=== PATIENT | female | born 1950 | race Caucasian/White ===

== ENCOUNTER 2016-07-28 09:46 | Observation (INO) | payer MEDICARE ==
[~2016-07-28] VITALS: Ht 152.4 cm; Wt 74.8 kg
[~2016-07-28 09:46] MED LIST: GLUCOPHAGE500 MG PO; NOVOLOG100 U/M1 SC
[2016-07-28 10:25] LABS: BASOPHILS 0.4 % (0.0-2.0); EOSINOPHILS 2.9 % (0-7); HEMATOCRIT 37.2 % (36.0-48.0); HEMOGLOBIN 11.2 g/dL (12-16); LYMPHOCYTES 42.9 % (15-50); MCH 29.7 pg (26.0-34.0); MCHC 30.1 g/dL (31.0-37.0); MCV 98.7 fL (80.0-100.0); MEAN PLATELET VOLUME 8.8 fL (7.4-10.4); MONOCYTES 9.3 % (2-11); NEUTROPHILS 44.5 % (40-80); RBC 3.77 10x6/uL (4.00-5.40); RDW 13.6 % (11.5-14.5); WBC 2.8 10x3/uL (4.8-10.8)
[2016-07-28 10:26] LABS: PLATELET COUNT 296 10x3/uL (130-400)
[2016-07-28 10:49] LABS: ALBUMIN 2.7 g/dL (3.4-5.0); ALKALINE PHOSPHATASE 113 U/L (46-116); ALT (SGPT) 22 U/L (10-68); CALC OSMOLALITY 278 mosm/kg (275-300); CALCIUM 8.9 mg/dL (8.5-10.1); CARBON DIOXIDE 33.8 mmol/L (21.0-32.0); CHLORIDE - SERUM 101 mmol/L (98-107); CREATININE - SERUM 0.8 mg/dL (0.6-1.3); PRO BNP 1036 pg/mL (0-125); PROTEIN - SERUM 7.2 g/dL (6.4-8.2); SODIUM 140 mmol/L (136-145); UREA NITROGEN 22 mg/dL (7-18); eGFR NON AFRICAN AMERICAN 77 mL/min (90-120)
[2016-07-28 10:51] LABS: GLUCOSE 39 mg/dL (74-106)
[2016-07-28 11:57] LABS: APPEARANCE CLEAR (CLEAR); BILIRUBIN NEGATIVE (NEGATIVE); COLOR YELLOW (YELLOW); GLUCOSE NEGATIVE (NEGATIVE); KETONE NEGATIVE (NEGATIVE); LEUKOCYTE ESTERASE NEGATIVE (NEGATIVE); NITRITE NEGATIVE (NEGATIVE); PROTEIN NEGATIVE (NEGATIVE); SPECIFIC GRAVITY 1.005 (1.005-1.020); UROBILINOGEN NORMAL (NORMAL)
[2016-07-28 12:02] LABS: UDS - AMPHET NEGATIVE QUAL (NEGATIVE); UDS - BARB NEGATIVE QUAL (NEGATIVE); UDS - BENZO NEGATIVE QUAL (NEGATIVE); UDS - COCAINE NEGATIVE QUAL (NEGATIVE); UDS - METH NEGATIVE QUAL (NEGATIVE); UDS - OPIATE NEGATIVE QUAL (NEGATIVE); UDS - PCP NEGATIVE QUAL (NEGATIVE); UDS - THC NEGATIVE QUAL (NEGATIVE)
--- NOTE | 2016-07-28 14:49 | NUR ---
Patient Name: LOPEZ CASAREZ Admission Status: ER Accout number: [id number] Admission Date: 07-28-2016 : 1950 Admission Diagnosis: Attending: ANALY Current LOS: 1 Anticipated DC Date: 07-31-2016 Planned Disposition: Home Primary Insurance: MEDICARE A & B Discharge Planning Comments: CM MET WITH PATIENT REGARDING D/C NEEDS AND PLANS. PATIENT STATED SHE LIVES AT HOME WITH HER SPOUSE (SHELIA) AND HE WILL DRIVE HER HOME AT DISCHARGE. PATIENT STATED SHE IS INDEPENDENT WITH HER CARE AND HAS NO DME AT HOME. THERE IS ONE STEP W/RAILING TO ENTER HOME AND NO STAIRS INSIDE HOME PER PATIENT. DOCTOR MANDO IS PATIENTS PCP AND PATIENT USES [facility] ON [address] FOR HER PHARMACY. PATIENT HAS NOT HAD HOME HEALTH BEFORE. CM WILL CONTINUE TO FOLLOW PATIENT WITH D/C NEEDS AND PLANS. PCP DR. [facility]ANDO [facility] [address]- [phone] SHELIA (SPOUSE) [phone] Front End Web Designer: Deborah Peacock Is the patient Alert and Oriented? Yes 0 * How many steps to enter\exit or inside your home? 0 0 * PCP DR. GILMORE 0 * Pharmacy [facility] [address] 0 * Preadmission Environment Home with Family 0 * ADLs Independent 0 * Equipment None 0 * List name and contact numbers for known caregivers / representatives who currently or will assist patient after discharge: SHELIA (SPOUSE) [phone] 0 * Community resources currently utilized None 0 * Additional services required to return to the preadmission environment? Yes 0 * Can the patient safely return to the preadmission environment? Yes 0 * Has this patient been hospitalized within the prior 30 days at any hospital? No 0 Grand Total: 0
[2016-07-28 14:58] VITALS: BMI 32.2
--- NOTE | 2016-07-28 19:00 | NUR ---
PATIENT SUPINE IN BED. HOB 30 DEGREES. AAOX4. RR EVEN AND UNLABORED. 0 S/S OF DISTRESS. DENIES PAIN AT THIS TIME. IV TO RIGHT AC S/L WITH NO REDNESS OR SWELLING. DOLAN DRAINING TO GRAVITY AND SECURED WITH STATLOCK. SRX2. BED LOW. CALL LIGHT WITHIN REACH.
[2016-07-28 21:00] VITALS: BP 128/59
[2016-07-29 01:00] VITALS: BP 132/65
[2016-07-29 05:40] LABS: BASOPHILS 0.5 % (0.0-2.0); EOSINOPHILS 3.3 % (0-7); HEMATOCRIT 31.6 % (36.0-48.0); HEMOGLOBIN 9.3 g/dL (12-16); LYMPHOCYTES 42.9 % (15-50); MCH 29.2 pg (26.0-34.0); MCHC 29.4 g/dL (31.0-37.0); MCV 99.1 fL (80.0-100.0); MEAN PLATELET VOLUME 8.9 fL (7.4-10.4); MONOCYTES 10.7 % (2-11); NEUTROPHILS 42.6 % (40-80); PLATELET COUNT 291 10x3/uL (130-400); RBC 3.19 10x6/uL (4.00-5.40); RDW 13.6 % (11.5-14.5)
[2016-07-29 05:50] LABS: ALBUMIN 2.8 g/dL (3.4-5.0); ANION GAP 7.5 mmol/L (8-16); BILIRUBIN - TOTAL 0.2 mg/dL (0.2-1.3); CALCIUM 8.5 mg/dL (8.5-10.1); CARBON DIOXIDE 33.9 mmol/L (21.0-32.0); POTASSIUM - SERUM 3.4 mmol/L (3.5-5.1); PROTEIN - SERUM 6.4 g/dL (6.4-8.2); WBC 3.7 10x3/uL (4.8-10.8)
[2016-07-29 07:55] VITALS: BP 128/62
--- NOTE | 2016-07-29 08:30 | NUR ---
ASSESSMENT PER FLOW SHEET.PT WITHOUT DISTRESS.DENIES NEEDS.REPORTS LOOSE STOOLS.CALL LIGHT IN REACH
--- NOTE | 2016-07-29 12:00 | NUR ---
MULTIPLE STOOLS THROUGHOUT DAY.REMAINS WITHOUT DISTRESS.CALL LIGHT IN REACH
[2016-07-29 12:05] VITALS: BP 146/67
[2016-07-29 13:20] VITALS: Ht 152.4 cm; Wt 74.8 kg
[2016-07-29] MEDS ORDERED: LISINOPRIL2.5 MG PO (15:25)
[2016-07-29] MEDS ORDERED: PRAVACHOL20 MG PO (15:25)
[2016-07-29] MEDS ORDERED: ASPIRIN81 MG PO (15:25)
--- NOTE | 2016-07-29 15:33 | NUR ---
CM REASSESSMENT NOTE: PATIENT IS DISCHARGING HOME WITH NO NEEDS.
[2016-07-29 15:38] VITALS: BP 147/69
--- NOTE | 2016-07-29 17:00 | NUR ---
IV DCD CATH INTACT. DOLAN DCD WITH 750CC OF YELLOW URINE IN BAG.DISCHARGE INSTRUCTIONS,STATES UNDERSTANDING.PT INSTRUCTED TO CALL WHEN SHE HAS TO VOID.
--- NOTE | 2016-07-29 17:54 | NUR ---
VOIDED APROX 350CC OF YELLOW URINE.LEFT FLOOR VIA WHELCHAIR FOR TRANSPORT HOME
== END 2016-07-29 17:54 | disposition home or self-care (01) ==
LOC: D.ER 09:46 → OBSVTIME 13:34 → D.MS 13:34
PROVIDERS: Emergency Medicine; ADMIT Family Medicine
DX: E11.649 Type 2 diabetes mellitus with hypoglycemia without coma (principal); Z79.4 Long term (current) use of insulin; E11.43 Type 2 diabetes mellitus with diabetic autonomic (poly)neuropathy; K31.84 Gastroparesis; Z91.19 Patient's noncompliance with other medical treatment and regimen; R60.9 Edema, unspecified; R41.0 Disorientation, unspecified

== ENCOUNTER 2016-08-09 06:21 | Inpatient (IN) | payer MEDICARE ==
[2016-08-09] VITALS (15 sets, daily range): BP systolic 117–169; BP diastolic 57–120; BMI 34.4
[~2016-08-09] VITALS: Ht 152.4 cm; Wt 69.6 kg
[~2016-08-09 06:21] MED LIST changes: +ASPIRIN81 MG PO; +LISINOPRIL2.5 MG PO; +PRAVACHOL20 MG PO
[2016-08-09 07:17] LABS: BASOPHILS 0.2 % (0.0-2.0); EOSINOPHILS 0.2 % (0-7); HEMATOCRIT 36.8 % (36.0-48.0); HEMOGLOBIN 10.8 g/dL (12-16); IMMATURE GRANULOCYTES 0.2 % (0-5); LYMPHOCYTES 17.2 % (15-50); MCH 29.3 pg (26.0-34.0); MCHC 29.3 g/dL (31.0-37.0); MEAN PLATELET VOLUME 9.4 fL (7.4-10.4); MONOCYTES 4.8 % (2-11); NEUTROPHILS 77.4 % (40-80); PLATELET COUNT 253 10x3/uL (130-400); RBC 3.68 10x6/uL (4.00-5.40); RDW 14.2 % (11.5-14.5); WBC 4.1 10x3/uL (4.8-10.8)
[2016-08-09 07:29] LABS: APTT 26.5 SECONDS (22.8-39.4); INR 1.1 (0.85-1.17)
[2016-08-09 07:48] LABS: ALKALINE PHOSPHATASE 122 U/L (46-116); ALT (SGPT) 31 U/L (10-68); BILIRUBIN - TOTAL 0.23 mg/dL (0.2-1.3); CALCIUM 9.4 mg/dL (8.5-10.1); CARBON DIOXIDE 36.4 mmol/L (21.0-32.0); CHLORIDE - SERUM 101 mmol/L (98-107); CKMB 6.6 U/L (0.0-3.6); CREATINE KINASE 95 UL (21-215); CREATININE - SERUM 1.7 mg/dL (0.6-1.3); PRO BNP 4284 pg/mL (0-125); PROTEIN - SERUM 7.2 g/dL (6.4-8.2); SODIUM 140 mmol/L (136-145); UREA NITROGEN 49 mg/dL (7-18); eGFR NON AFRICAN AMERICAN 32 mL/min (90-120)
[2016-08-09 07:49] LABS: CALC OSMOLALITY 288 mosm/kg (275-300); GLUCOSE 41 mg/dL (74-106)
[2016-08-09 07:50] LABS: TROPONIN-I 0.292 ng/mL (0.000-0.060)
[2016-08-09 07:51] LABS: AMORPHOUS SEDIMENT <1+ /lpf (NONE SEEN); APPEARANCE CLEAR (CLEAR); BACTERIA FEW /hpf (NONE SEEN); BILIRUBIN NEGATIVE (NEGATIVE); COLOR YELLOW (YELLOW); EPITHELIAL CELLS 0-5 /hpf (0-5); GLUCOSE NEGATIVE (NEGATIVE); KETONE NEGATIVE (NEGATIVE); LEUKOCYTE ESTERASE NEGATIVE (NEGATIVE); MUCUS <1+ /lpf (NONE SEEN); NITRITE NEGATIVE (NEGATIVE); PROTEIN 1+ mg/dL (NEGATIVE); RED CELLS - URINE 0-5 /hpf (0-5); SPECIFIC GRAVITY 1.015 (1.005-1.020); UROBILINOGEN NORMAL (NORMAL); WHITE CELLS - URINE OCC /hpf (0-5)
--- NOTE | 2016-08-09 11:25 | NUR ---
PT ARRIVED ON UNIT WITH ER STAFF. NO PERSONAL BELONGINGS. INITIAL ASSESSMENT COMPLETE, INVITED FAMILY IN TO VISIT WITH PT AND OBTAINED HISTORY FROM SPOUSE. PLEASE SEE FLOW SHEETS FOR ALL DETAILS. VSS AT THIS TIME, WILL CONTINUE TO MONITOR.
--- NOTE | 2016-08-09 12:16 | NUR ---
PT FSBS 54, GAVE GLUCOSE 50% 25ML, ORDERED.
--- NOTE | 2016-08-09 12:45 | NUR ---
FSBS NOW 87, WILL MONITOR.
[2016-08-09 13:23] LABS: CKMB 5.7 U/L (0.0-3.6); CREATINE KINASE 88 UL (21-215)
[2016-08-09 13:24] LABS: TROPONIN-I 0.218 ng/mL (0.000-0.060)
--- NOTE | 2016-08-09 13:34 | NUR ---
PT GIVEN SIPS OF WATER. DR RENEE PAGED AND NOTIFIED OF CONSULT. VSS AT THIS TIME, WILL CONTINUE TO MONITOR.
--- NOTE | 2016-08-09 15:20 | NUR ---
REASSESSMENT COMPLETE, PLEASE SEE FLOW SHEETS FOR DETAILS. VSS AT THIS TIME, BED LOW AND LOCKED WITH CALL LIGHT IN REACH, WILL CONTINUE TO MONITOR.
--- NOTE | 2016-08-09 16:10 | NUR ---
FSBS 42 GAVE 25ML OF 50% GLUCOSE.
--- NOTE | 2016-08-09 16:43 | NUR ---
FSBS 89.
--- NOTE | 2016-08-09 17:00 | NUR ---
PT RESTING, VSS, BED LOW AND LOCKED, CALL LIGHT IN REACH, WILL CONTINUE TO MONITOR.
--- NOTE | 2016-08-09 17:44 | NUR ---
FSBS 55, GAVE 25 ML OR 50% GLUCOSE ORDERED.
[2016-08-09 18:29] LABS: CKMB 3.2 U/L (0.0-3.6); CREATINE KINASE 52 UL (21-215)
[2016-08-09 18:33] LABS: TROPONIN-I 0.278 ng/mL (0.000-0.060)
--- NOTE | 2016-08-09 18:53 | NUR ---
FSBS 81.
--- NOTE | 2016-08-09 19:15 | NUR ---
REPORT RECVD. CARE ASSUMED. INITIAL ASSMNT COMPLETED. SEEE FLOWSHEET FOR ALL FINDINGS. AWAKE AND ALERT. MILD CONFUSION SEEN. SPEECH IS CLEAR. PERRLA NOTED. BEATER BOSS /STRENGTH EQUAL BILATERALLY. RESP SHALLOW. LUNGS DIM THRU OUT. OCC FIELD NURSE CASE MANAGER COUGH SEEN. SPO2 96% ON 3-4 LPM NC. PALLOR NOTED. GENERALIZED EDEMA PRESENT. PULSES WEAK. SR ON THE MONITOR. AFEBRILE. SCDS IN USE. ABD DISTENDED. BS HYPO X4. PASSING FLATUS. F/C PATENT WITH YELLOW DIURESIS. DEBIES PAIN. HOB UP. C/L IN REACH. CONT POC.
--- NOTE | 2016-08-09 21:00 | NUR ---
NO VISITORS. SNACK PROVIDED AND TAKEN. VSS. SR ON THE MONITOR. NO DISTRESS. HOB UP. C./L IN REACH. CONT TO MONITOR FSBS CLOSELY.
--- NOTE | 2016-08-09 23:15 | NUR ---
REASSESSMENT COMPLETED. SEE FLOWSHEET FOR ALL FINDINGS. RESTING WITH NO DISTRESS. FSBS WITHIN PARAMETERS. LESS CONFUSED. RESP SHALLOW. LUNGS DIM THRU OUT. OCC MANAGER OF PATIENT COUGH SEEN. SPO2 96% ON 3 LPM NC. PALLOR NOTED. GENERALIZED EDEMA PRESENT. PULSES WEAK. SR ON THE MONITOR. AFEBRILE. SCDS IN USE. ABD DISTENDED. BS HYPO X4. PASSING FLATUS. F/C PATENT WITH YELLOW DIURESIS. DEBIES PAIN. HOB UP. C/L IN REACH. CONT POC.
[2016-08-10] VITALS (23 sets, daily range): BP systolic 131–162; BP diastolic 56–81; Ht 152.4 cm; Wt 69.6 kg
[2016-08-10 00:50] LABS: CKMB 2.2 U/L (0.0-3.6); CREATINE KINASE 44 UL (21-215); TROPONIN-I 0.284 ng/mL (0.000-0.060)
--- NOTE | 2016-08-10 03:15 | NUR ---
REASSESSMENT COMPLETED. SEE FLOWSHEET FOR ALL FINDINGS. RESTING WITH NO DISTRESS. FSBS WITHIN PARAMETERS. LESS CONFUSED. RESP SHALLOW. LUNGS DIM THRU OUT. OCC PAYROLL AND BENEFITS ASSISTANT COUGH SEEN. SPO2 96% ON 3-4 LPM NC. PALLOR NOTED. GENERALIZED EDEMA PRESENT. PULSES WEAK. SR ON THE MONITOR. AFEBRILE. SCDS IN USE. ABD DISTENDED. BS HYPO X4. PASSING FLATUS. F/C PATENT WITH YELLOW DIURESIS. DEBIES PAIN. HOB UP. C/L IN REACH. CONT POC.
[2016-08-10 04:11] LABS: BASOPHILS 0 % (0.0-2.0); EOSINOPHILS 1.2 % (0-7); HEMATOCRIT 32.7 % (36.0-48.0); HEMOGLOBIN 9.8 g/dL (12-16); IMMATURE GRANULOCYTES 0.2 % (0-5); LYMPHOCYTES 20.8 % (15-50); MCH 29.1 pg (26.0-34.0); MEAN PLATELET VOLUME 9.1 fL (7.4-10.4); MONOCYTES 9.3 % (2-11); NEUTROPHILS 68.5 % (40-80); PLATELET COUNT 241 10x3/uL (130-400); RBC 3.37 10x6/uL (4.00-5.40); RDW 14.6 % (11.5-14.5)
[2016-08-10 04:12] LABS: WBC 5.8 10x3/uL (4.8-10.8)
[2016-08-10 04:25] LABS: ANION GAP 3.1 mmol/L (8-16); CALCIUM 8.5 mg/dL (8.5-10.1)
[2016-08-10 04:27] LABS: CARBON DIOXIDE 42.9 mmol/L (21.0-32.0)
--- NOTE | 2016-08-10 05:05 | NUR ---
RESTING IN BED WITH NO DISTRESS. RESP UNLABIORED. SPO2 96% ON O2 AT 3 LPM NC. SR ON THE MONITOR. FSBS WITHIN PARAMETERS. CONT TO MONITOR FREQ. PO FLUID AND SNACK GIVEN.
--- NOTE | 2016-08-10 07:15 | NUR ---
REPORT RECIEVED FROM GAS TRUCK DRIVER NURSE. PT RESTING IN BED QUIETLY. CONFUSED TO SITUATION. ANSWERES QUESTIONS APPROPRIATLY. NO S/SX OF ACUTE DISTRESS NOTED AT THIS TIME. CALL LIGHT IN REACH. BED IN LOW POSITION. WILL CONTINUE TO ASSESS FOR CHANGES. ASSESSMENT COMPLETE PER FLOWSHEET.
--- NOTE | 2016-08-10 08:34 | NUR ---
SPOKE WITH DR. BENEDICT CANTU NURSE IN REGARDS TO CRITICALLY HIGH CO2 LEVEL. SHE STATED DR. GILMORE MAY BE COMING TO THE HOSPITAL BEFORE CLINIC IF NOT SHE WOULD REPORT THE CHANGES TO DR. GILMORE. AWAITING ORDERS.
--- NOTE | 2016-08-10 08:44 | NUR ---
SPOKE WITH ALONDRA, DR. MCMULLEN NURSE. STATED DR. SWARTZ WOULD BE BY THE HOSPITAL DURING LUNCH AND HE WOULD ADDRESS THE CO2 THEN.
--- NOTE | 2016-08-10 11:00 | NUR ---
FULL BED BATH AND LINEN CHANGE PROVIDED. HAIR WASHED. DENTURES SOAKING IN DENTURE CUP. ORAL CARE PROVIDED. NO CHANGES NOTED AT THIS TIME. WILL CONTINUE TO MONITOR. CALL LIGHT IN REACH.
--- NOTE | 2016-08-10 11:10 | NUR ---
DOLAN CARE PROVIDED. STICKER PLACED NEXT TO DAYSHIFT DAY TWO. GENERALIZED SWELLING NOTED ALL OVER. PT C/O TENDERNESS WHEN PROVIDING F/C. BUMEX GTT INFUSING PER ORDERS FOR ANASARCA. WILL CONTINUE TO ASSESS.
--- NOTE | 2016-08-10 12:05 | NUR ---
FAMILY AT BEDSIDE UPDATE PROVIDED. DENIES NEEDS AT THIS TIME, PT'S HOB ELEVATED FOR LUNCH. BST PLACED INFRONT OF PT WITH MEAL TRAY. CALL LIGHT IN REACH. DENIES ASSISTANCE WITH FEEDING. WILL ASSESS.
--- NOTE | 2016-08-10 13:00 | NUR ---
DR. GILMORE AT BEDSIDE. UPDATE PROVIDED. WILL PLACE ORDERS.
[2016-08-10] MEDS ORDERED: PRAVACHOL20 MG PO (13:59)
[2016-08-10] MEDS ORDERED: LISINOPRIL2.5 MG PO (13:59)
[2016-08-10] MEDS ORDERED: REGLAN10 MG PO (14:00)
[2016-08-10] MEDS ORDERED: FUROSEMIDE20 MG PO (14:01)
[2016-08-10] MEDS ORDERED: NEURONTIN600 MG PO (14:01)
[2016-08-10] MEDS ORDERED: K-DUR20 MEQ PO (14:02)
[2016-08-10] MEDS ORDERED: TRESIBA FL100 UNIT/1 SC (14:02)
[2016-08-10] MEDS ORDERED: GLUCOPHAGE500 MG PO (14:03)
[2016-08-10] MEDS ORDERED: NOVOLOG100 U/M1 (14:03)
[2016-08-10 14:31] LABS: ANION GAP 3.6 mmol/L (8-16); POTASSIUM - SERUM 3.9 mmol/L (3.5-5.1)
[2016-08-10 14:33] LABS: CARBON DIOXIDE 45.3 mmol/L (21.0-32.0)
--- NOTE | 2016-08-10 15:54 | NUR ---
1430 REPORT RECIEVED AND CARE ASSUMED OF PT.. PT IS SUPINE I N ICU BED.. C/O NAUSEA AND CONSTIPATION.. PIV RIGHT AC RESITED INTO THE RIGHT FOREARM WITH 20 GA IV CATH.. BUMEX, D5W AND NS INFUSING.. 1500 FAMILY IN TO SEE PT.. 1530 WITHOUT OTHER CHANGES AT THIS TIME..
--- NOTE | 2016-08-10 18:16 | NUR ---
1600 BS DONE 1700 DIET SERVED FEEDING SELF.. 1800 FAMIY N TO SEE PT..
[2016-08-11] VITALS (19 sets, daily range): BP systolic 138–177; BP diastolic 60–95
[2016-08-11 05:09] LABS: BASOPHILS 0.2 % (0.0-2.0); EOSINOPHILS 1.7 % (0-7); HEMOGLOBIN 10.5 g/dL (12-16); IMMATURE GRANULOCYTES 0.2 % (0-5); LYMPHOCYTES 32.7 % (15-50); MCH 29.2 pg (26.0-34.0); MCHC 26.2 g/dL (31.0-37.0); MEAN PLATELET VOLUME 10.4 fL (7.4-10.4); MONOCYTES 9.4 % (2-11); NEUTROPHILS 55.8 % (40-80); PLATELET COUNT 252 10x3/uL (130-400); RDW 15.3 % (11.5-14.5); WBC 5.2 10x3/uL (4.8-10.8)
[2016-08-11 05:11] LABS: HEMATOCRIT 40.1 % (36.0-48.0); MCV 111.4 fL (80.0-100.0)
[2016-08-11 05:27] LABS: ANION GAP 2.8 mmol/L (8-16); CALCIUM 9.4 mg/dL (8.5-10.1); CREATININE - SERUM 0.9 mg/dL (0.6-1.3); POTASSIUM - SERUM 3.4 mmol/L (3.5-5.1)
[2016-08-11 05:37] LABS: CARBON DIOXIDE 45.6 mmol/L (21.0-32.0)
--- NOTE | 2016-08-11 11:00 | NUR ---
0800 AM ASSESMENT IS COMPLETE SEE FLOW SHEET FOR FINDINGS.. PT IS AWAKE AND ALERT.. BS DONE 0830 BREAKFAST SERVED AND PT IS FEEDING SELF.. 0900 FAMILY IN TO SEE PT.. 1000 FSBS DONE.. PT RESTING QUIETLY..
--- NOTE | 2016-08-11 11:26 | NUR ---
* Is the patient Alert and Oriented? Yes 0 * How many steps to enter\exit or inside your home? 2 0 * PCP DR. GILMORE 0 * Pharmacy [facility] [address] 0 * Preadmission Environment Home with Family 0 * ADLs Independent 0 * Equipment Rolling Walker 0 * List name and contact numbers for known caregivers / representatives who currently or will assist patient after discharge: SPOUSE: SHELIA CASAREZ [phone] 0 * Community resources currently utilized None 0 * Additional services required to return to the preadmission environment? Yes 0 * Can the patient safely return to the preadmission environment? Yes 0 * Has this patient been hospitalized within the prior 30 days at any hospital? No 0 PATIENT STATES SHE LIVES AT HOME WITH HER SPOUSE, SHELIA. SHE STATES THAT HER WILL BE AVAILABLE TO DRIVE HER HOME AT DISCHARGE. SHE STATES THAT HER COOKS AND ASSISTS HER NEEDED. SHE STATES HER DAUGHTER, AMANDA CROOKS, ALSO ASSISTS THEM NEEDED. HER PCP IS DR. GILMORE. SHE GETS HER MEDS FROM [facility] ON [address] PATIENT HAS A WALKER AT HOME THAT SHE UTILIZES NEEDED. SHE STATES SHE DOES NOT HAVE ANY PROBLEMS GETTING AROUND IN HER HOME. PATIENT DENIES EVER HAVING HOME HEALTH. THERE ARE 2 STEPS TO ENTER HER HOME. SHE STATES THAT SHE WOULD BE AGREEABLE FOR HOME HEALTH AT DISCHARGE. CM TO FOLLOW.
--- NOTE | 2016-08-11 17:50 | NUR ---
1200 FAMILY IN TO SEE PT.. UPDATE IS GIVEN.. LUNCH SERVED AND PT IS FEEDING SELF.. 1300 DR GILMORE IN TO SEE PT.. UPDATE GIVEN..TRANSFER ORDERS RECIEVED.. 1400 WITHOUT CHANGES.. FSBS.. PT REQUEST BEDPAN.. EXTREMLY LARGE BM.. BATH AND LINEN CHANGE DONE AT THIS TIME 1500 FAMILY N TO SEE PT .. SPOKE QWITH CASE MANAGMENT AT HIS TIME RE DISCHARGE 1630 FSBS DONE .. DIET SERVED .. FEEDING SELF.. 1715 I AND O DONE..
--- NOTE | 2016-08-11 19:00 | NUR ---
REPORT RECIEVED, SHIFT ASSESSMENT COMPLETE, PT IS ALERT AND ORIENTED, ON 3L NC WITH 97% O2 SAT. LUNGS CLEAR IN B/L UPPER LOBES, DIMINISHED IN B/L LOWER LOBES, S1S2, CM-NSR, PATENT RIGHT FA PIV WITH NS INFUSING VIA PUMP, ABDOMEN IS SOFT AND ROUND WITH ACTIVE BS, PATENT F/C WITH C/Y UOP, EDEMA NOTED IN ALL EXTREMETIES, ALL PPP, VSS, CALL LIGHT IN REACH
--- NOTE | 2016-08-11 21:00 | NUR ---
NO VISITORS AT THIS TIME,
--- NOTE | 2016-08-11 23:30 | NUR ---
PT DENIES ANY NEEDS OR WANTS, REPOSITIONED FOR COMFORT,
--- NOTE | 2016-08-12 01:30 | NUR ---
REPOSITONED FOR COMFORT,
[2016-08-12 03:00] VITALS: BP 148/68
--- NOTE | 2016-08-12 03:30 | NUR ---
PT RESTING AT THIS TIME, DENIES ANY NEEDS
[2016-08-12 05:00] LABS: BASOPHILS 0.4 % (0.0-2.0); EOSINOPHILS 2.2 % (0-7); HEMATOCRIT 36.2 % (36.0-48.0); HEMOGLOBIN 10.6 g/dL (12-16); IMMATURE GRANULOCYTES 0.2 % (0-5); LYMPHOCYTES 31.9 % (15-50); MCH 28.6 pg (26.0-34.0); MCHC 29.3 g/dL (31.0-37.0); MEAN PLATELET VOLUME 9.3 fL (7.4-10.4); MONOCYTES 8.5 % (2-11); NEUTROPHILS 56.8 % (40-80); PLATELET COUNT 262 10x3/uL (130-400); RDW 14.1 % (11.5-14.5)
[2016-08-12 05:06] LABS: CALC OSMOLALITY 280 mosm/kg (275-300); CARBON DIOXIDE 37.9 mmol/L (21.0-32.0); CHLORIDE - SERUM 100 mmol/L (98-107); CREATININE - SERUM 0.8 mg/dL (0.6-1.3); GLUCOSE 117 mg/dL (74-106); POTASSIUM - SERUM 3.2 mmol/L (3.5-5.1); SODIUM 140 mmol/L (136-145); eGFR NON AFRICAN AMERICAN 77 mL/min (90-120)
[2016-08-12 05:16] LABS: MCV 97.8 fL (80.0-100.0)
[2016-08-12 05:30] LABS: UREA NITROGEN 14 mg/dL (7-18)
--- NOTE | 2016-08-12 05:30 | NUR ---
REPOSTIONED FOR COMFORT, WILL CON'T TO MONITOR
[2016-08-12 06:00] VITALS: BP 142/62
--- NOTE | 2016-08-12 09:34 | NUR ---
REPORT CALLED TO [facility]. TRANSFER VIA BED.
--- NOTE | 2016-08-12 10:11 | NUR ---
REC'D PT FROM ICU. PT A/O X3. ORIENTED PT TO ROOM. PT WEARING GLASSES AND DENTURES, BOTH UPPER AND LOWERS. O2 AT 2L VIA NC. IV TO RT FOREARM IS PATENT WITH NS @ 75 INFUSING. IV IS A 20G. DOLAN CATH TO BSD WITH APPROX 400ML OF DARK YELLOW URINE. PT WEARING SCD'S. SCD'S REMOVED AND SKIN ASSISTED. NO S/S OF BREAKDOWN NOTED. PT'S BOTTOM WITHOUT REDNESS OR BREAKDOWN. PT ABLE TO ASSIST STAFF WITH TURNING. VS- B/P 154/70,P70,R16,T97.4,O2-99%. CALL LIGHT WITH IN REACH. PT DENIES NEEDS OR DISCOMFORT AT THIS TIME. WILL CONT. TO HANS. PT REQUEST THAT NURSE CALL SPOUSE TO NOTIFY HIM THAT SHE WAS MOVED TO DIFFERENT ROOM.
--- NOTE | 2016-08-12 11:11 | NUR ---
PT INCONT OF STOOL. STATES SHE DOES NOT KNOW WHEN SHE HAS TO GO, AND SOMETIMES DOES NOT KNOW AFTER SHE GOES. NURSE PLACED PT ON TELEMETRY. PT STATES " WILL THIS TELL YOU IF I GO TO THE BATHROOM OR NOT." NURSE EXPLAINED TELEMETRY WAS TO MONITOR HER HEART, AND SHE SHOULD PRESS HER CALL BUTTON IF SHE HAS A BM. THAT WAS WHEN PT STATED " WELL I DON'T KNOW SOMETIMES." NURSE AND RECORD KEEPER CLEAN PT OF STOOL AND PROVIDED KATE-CARE, AND CHANGED LINENS. PT DENIES NEEDS OR WANTS AT THIS TIME. CALL LIGHT WITH IN REACH. NURSE RE-ORIENTED PT ON HOW TO USE CALL LIGHT. WILL CONT. TO MONITOR.
--- NOTE | 2016-08-12 12:50 | NUR ---
PT AWAKE, AND VISITNG WITH SPOUSE. NO DISTRESS NOTED. DENIES NEEDS. CALL LIGHT WITH IN REACH. WILL CONT. TO MONITOR.
--- NOTE | 2016-08-12 15:22 | NUR ---
PT SLEEPING. RESP EVEN AND UNLABORED. APPEARS COMFORTABLE. CALL LIGHT WITH IN REACH. WILL CONT. TO MONITOR.
[2016-08-12 16:00] VITALS: BP 148/67
--- NOTE | 2016-08-12 16:10 | NUR ---
PT REFUSES TO ALLOW STAFF TO REMOVE DOLAN CATH AT THIS TIME. PT IS WORRIED SHE HAS BECOME DEPENDANT ON THE CATH. PT AGREED TO BLADDER TRAINING AND THEN WILL ALLOW STAFF TO D/C CATH.
--- NOTE | 2016-08-12 18:08 | NUR ---
PT SITTING UP IN BED TALKING WITH SPOUSE. STATES SHE FEELS THE URGE TO URINATE. UN-CLAMPED DOLAN, RECEIVED APPROX 325ML OF URINE OUTPUT. NURSE RECLAMPED. WILL CONT. TO BLADDER TRAIN. PT DENIES NEEDS. CALL LIGHT WITH IN REACH. WILL CONT. TO MONITOR.
--- NOTE | 2016-08-12 19:23 | NUR ---
PT SITTING UP IN BED, VISITING WITH SPOUSE. A/O X3. PT DENIES FEELING URGE TO URINATE. NURSE RICKIE DOLAN, REC'D APPROX 300ML OF CLEAR YELLOW URINE IN RETURN. WILL CONT. WITH BLADDER TRAINING. PT DENIES NEEDS AT THIS TIME. CALL LIGHT WITH IN REACH. WILL CONT. TO MONITOR.
[2016-08-12 20:00] VITALS: BP 144/59
[2016-08-13] VITALS: BP 134/61
--- NOTE | 2016-08-13 00:22 | NUR ---
PT LYING IN BED, AWAKE, ALERT, ORIENTED EARLIER IN SHIFT. PT DENIED ANY NEEDS. PT IS CURRENTLY RESTING COMFORTABLY, EYES CLOSED, RESPIRATIONS EVEN AND UNLABORED. CONTINUE TO MONITOR CLOSELY. BED LOW, CALL LIGHT IN REACH, SIDE RAILS X 2, HOB 10 DEGREES.
--- NOTE | 2016-08-13 03:39 | NUR ---
PT LYING IN BED, EYES CLOSED, RESPIRATIONS EVEN AND UNLABORED. PT DID HAVE A COUGHING SPELL THAT PRODUCED THICK, WHITE SPUTUM. I ASSISTED PT TO A 40 DEGREE POSITION WHICH ALLOWED HER TO CLEAR HER CHEST AND THROAT. FLUIDS GIVEN TO HELP CLEAR HER THROAT. NO OTHER ACUTE ISSUES. CONTINUE TO MONITOR CLOSELY. BED LOW, CALL LIGHT IN REACH, SIDE RAILS X 2.
[2016-08-13 04:00] VITALS: BP 135/59
[2016-08-13 06:10] LABS: BASOPHILS 0.2 % (0.0-2.0); EOSINOPHILS 3.7 % (0-7); HEMATOCRIT 33.6 % (36.0-48.0); IMMATURE GRANULOCYTES 0.3 % (0-5); LYMPHOCYTES 24.1 % (15-50); MCH 28.7 pg (26.0-34.0); MCHC 29.8 g/dL (31.0-37.0); MCV 96.3 fL (80.0-100.0); MONOCYTES 7.3 % (2-11); NEUTROPHILS 64.4 % (40-80); PLATELET COUNT 218 10x3/uL (130-400); RBC 3.49 10x6/uL (4.00-5.40); RDW 14.2 % (11.5-14.5)
[2016-08-13 06:17] LABS: WBC 6.3 10x3/uL (4.8-10.8)
[2016-08-13 06:24] LABS: CALC OSMOLALITY 283 mosm/kg (275-300); CALCIUM 8.9 mg/dL (8.5-10.1); CARBON DIOXIDE 30.6 mmol/L (21.0-32.0); CHLORIDE - SERUM 105 mmol/L (98-107); CREATININE - SERUM 0.8 mg/dL (0.6-1.3); GLUCOSE 142 mg/dL (74-106); POTASSIUM - SERUM 3.6 mmol/L (3.5-5.1); SODIUM 141 mmol/L (136-145); UREA NITROGEN 14 mg/dL (7-18); eGFR NON AFRICAN AMERICAN 77 mL/min (90-120)
[2016-08-13 08:02] VITALS: BP 135/58
--- NOTE | 2016-08-13 08:40 | NUR ---
INTRODUCED MYSELF TO PT PRIMARY RN FOR TODAYS SHIFT. PT IS ALERT AND ORIENTED RESTING QUIETLY IN BED. PT HAS A R.FA PIV WITH NS @75ML/HR INFUSING. D/C PTS DOLAN ORDERED. CATHETER BULB FULLY INTACT. PROVIDED PERICARE. PT C/O LOW BACK PAIN REQUESTING PRN TYLENOL, WILL REQUEST ORDER FROM HER DOCTOR. PT RESTING EATING BREAKFAST DENIES ANY FURTHER NEEDS AT THIS TIME. CL IN REACH, BED IN LOWEST, SIDE RAILS X2. WILL CPOC.
[2016-08-13 12:14] VITALS: BP 146/66
--- NOTE | 2016-08-13 13:25 | NUR ---
Nutrition follow-up: Diet: Consistent CHO PO intake ~25-50% of meals Labs reviewed +BM Wt: 170# PO intake poor to fair at this time; pt just out of ICU Will continue to provide food choices with selective menus and honor food preferences within diet restrictions. RDN will order Glucerna Shake BID. RDN following.
[2016-08-13 16:23] VITALS: BP 146/66
[2016-08-13 20:00] VITALS: BP 141/60
--- NOTE | 2016-08-13 21:30 | NUR ---
RESTING IN BED. ALERT ORIENTED CONVERSANT. DENIES NEEDS. NO ACUTE DISTRESS NOTED. FAMILY AT BEDSIDE.
[2016-08-14] VITALS: BP 129/56
[2016-08-14 04:00] VITALS: BP 122/50
--- NOTE | 2016-08-14 04:05 | NUR ---
ELASTIC CUTTER AT BEDSIDE TO OBTAIN VITALS, CALL LIGHT IN REACH. WILL CONTINUE TO MONITOR.
--- NOTE | 2016-08-14 05:52 | NUR ---
20MG IV LASIX ADMINISTERED APPROX 0550. ODRER TIME CHANGED FROM 0200 TO 0600. PT NO LONGER HAS A DOLAN.
[2016-08-14 06:27] LABS: BASOPHILS 0.4 % (0.0-2.0); EOSINOPHILS 3.3 % (0-7); HEMATOCRIT 34.7 % (36.0-48.0); IMMATURE GRANULOCYTES 0.2 % (0-5); LYMPHOCYTES 25.6 % (15-50); MCH 28.3 pg (26.0-34.0); MCHC 28.8 g/dL (31.0-37.0); MCV 98.3 fL (80.0-100.0); MEAN PLATELET VOLUME 9.1 fL (7.4-10.4); MONOCYTES 8.3 % (2-11); NEUTROPHILS 62.2 % (40-80); PLATELET COUNT 209 10x3/uL (130-400); RBC 3.53 10x6/uL (4.00-5.40); RDW 14.2 % (11.5-14.5); WBC 5.4 10x3/uL (4.8-10.8)
[2016-08-14 06:40] LABS: CALCIUM 8.4 mg/dL (8.5-10.1); CARBON DIOXIDE 31.2 mmol/L (21.0-32.0); CHLORIDE - SERUM 108 mmol/L (98-107); CREATININE - SERUM 0.8 mg/dL (0.6-1.3); POTASSIUM - SERUM 3.7 mmol/L (3.5-5.1); SODIUM 143 mmol/L (136-145); eGFR NON AFRICAN AMERICAN 77 mL/min (90-120)
[2016-08-14 06:44] LABS: CALC OSMOLALITY 286 mosm/kg (275-300); GLUCOSE 82 mg/dL (74-106); UREA NITROGEN 21 mg/dL (7-18)
[2016-08-14 07:51] VITALS: BP 137/80
--- NOTE | 2016-08-14 08:15 | NUR ---
AM ROUNDING- PT LAYING IN BED ON BACK WITH EYES OPEN, DENIES ANY NEED AT CURRENT TIME. ON EP. FSBS ACHS, 82 THIS MORNING WITH NO COVERAGE NEEDED PER REPORT FROM SURGICAL SUPERVISOR NURSE, SHELIA. ON 02 AT 2L VIA NC. IV SEEN TO RIGHT FOREARM WITH NS RUNNING AT 75CC. ON MONITOR SHOWING SR, HR 73. SCDS ARE AT BEDSIDE BUT CURRENTLY OFF. WILL PLACE BACK ON. WILL CONTINUE TO MONITOR.
[2016-08-14 12:00] VITALS: BP 143/62
--- NOTE | 2016-08-14 14:47 | NUR ---
SCDS REMOVED. SKIN ASSESSED. NO BREAKDOWN SEEN. SCDS PLACED BACK ON PT.
[2016-08-14 15:58] VITALS: BP 136/58
--- NOTE | 2016-08-14 17:18 | NUR ---
PT IS REFUSING TO WEAR SCDS AT CURRENT TIME.
[2016-08-14 17:31] LABS: MAGNESIUM - SERUM 1.7 mg/dL (1.8-2.4); PHOSPHOROUS 2.9 mg/dL (2.5-4.9)
--- NOTE | 2016-08-14 18:10 | NUR ---
PT SITTING UP IN BED. AT BEDSIDE. NO NEED AT CURRENT TIME. WILL CONTINUE TO MONITOR.
--- NOTE | 2016-08-14 19:29 | NUR ---
RESUMED CARE, 02-2L, IV-RFA @75, [id number], PT VISITING WITH , DENIES ANY NEEDS, CALL LIGHT IN REACH, BED IS LOW, SRX2, REFUSING SCD AT THIS TIME
[2016-08-14 20:00] VITALS: BP 139/58
--- NOTE | 2016-08-14 21:14 | NUR ---
BLOOD [id number]-BOVG 12UNITS OF HUMULIN R
[2016-08-15] VITALS: BP 149/63
--- NOTE | 2016-08-15 01:50 | NUR ---
PT RESTING SOUNDLY WITHOUT C/O OR DISTRESS NOTED. CALL LIGHT WITHIN REACH. WILL CONT TO MONITOR.
--- NOTE | 2016-08-15 02:34 | NUR ---
UP AND IN SHOWER,UNIT TECHNICIAN IN ROOM CHANGING BED
[2016-08-15 04:00] VITALS: BP 125/54
--- NOTE | 2016-08-15 04:14 | NUR ---
LYING QUIETLY, EYES OPEN, DENIES ANY NEEDS, CALL LIGHT IN REACH
[2016-08-15 06:34] LABS: BASOPHILS 0.2 % (0.0-2.0); EOSINOPHILS 3.7 % (0-7); HEMATOCRIT 34.1 % (36.0-48.0); HEMOGLOBIN 9.9 g/dL (12-16); IMMATURE GRANULOCYTES 0.4 % (0-5); LYMPHOCYTES 25.6 % (15-50); MCH 28.4 pg (26.0-34.0); MCV 97.7 fL (80.0-100.0); MEAN PLATELET VOLUME 9.1 fL (7.4-10.4); MONOCYTES 7.2 % (2-11); NEUTROPHILS 62.9 % (40-80); PLATELET COUNT 244 10x3/uL (130-400); RBC 3.49 10x6/uL (4.00-5.40); RDW 14.3 % (11.5-14.5); WBC 5.7 10x3/uL (4.8-10.8)
[2016-08-15 06:52] LABS: CALC OSMOLALITY 288 mosm/kg (275-300); CALCIUM 8.5 mg/dL (8.5-10.1); CARBON DIOXIDE 31.6 mmol/L (21.0-32.0); CHLORIDE - SERUM 107 mmol/L (98-107); CREATININE - SERUM 0.8 mg/dL (0.6-1.3); GLUCOSE 93 mg/dL (74-106); MAGNESIUM - SERUM 1.9 mg/dL (1.8-2.4); PHOSPHOROUS 2.9 mg/dL (2.5-4.9); POTASSIUM - SERUM 3.7 mmol/L (3.5-5.1); SODIUM 143 mmol/L (136-145); UREA NITROGEN 24 mg/dL (7-18); eGFR NON AFRICAN AMERICAN 77 mL/min (90-120)
--- NOTE | 2016-08-15 07:22 | NUR ---
AM ROUNDING- PT SITTING UP IN BED WITH EYES OPEN RESTING. DENIES ANY NEED AT CURRENT TIME. PT GOT UP AND HAD A SHOWER LAST NIGHT ON HER OWN PER REPORT FROM ACOUSTICAL TILE CARPENTERS SUPERVISOR NURSE, JOHNNIE. ON MONITOR SHOWING SR, HR 79. FSBS ACHS, 98 THIS AM THAT WAS NOT COVERED PER SLIDING SCALE. IV SEEN TO RIGHT FOREARM WITH NS RUNNING AT 75CC. ON 02 AT 2L VIA NC. PT REFUSES SCDS. ON EP. POTASSIUM, MAGNESIUM, AND PHOSPHORUS WERE ALL WITHIN NORMAL LIMITS WITH AM LABS. NO NEED AT CURRENT TIME. WILL CONTINUE TO MONITOR.
[2016-08-15 08:02] VITALS: BP 135/56
[2016-08-15] MEDS ORDERED: NOVOLOG100 U/M1 SC (09:06)
[2016-08-15 11:18] VITALS: BP 144/66
--- NOTE | 2016-08-15 11:30 | NUR ---
PT D/C PAPERWORK IS READY TO BE SIGNED AND EXPLAINED TO PT. PT STATED PTS WILL NOT BE BACK UNTIL AFTER HE GETS OUT OF [facility] TO GET HER. STATED I WILL COME BACK WHEN PTS GETS BACK TO HAVE PT SIGN PAPERWORK AND TAKE IV OUT. WILL CONTINUE TO MONITOR.
--- NOTE | 2016-08-15 12:00 | NUR ---
PT'S O2 SAT IS 84 ON ROOM AIR. SHE HAS BEEN ON 2L UP TO THIS POINT. NO FURTHUR INTERVENTIONS AT THIS POINT. O2 WAS REAPPLIED
--- NOTE | 2016-08-15 12:40 | NUR ---
PTS FAMILY MEMBERS ARE ASKING IF PT NEEDS TO BE ON 02 AT HOME. STATED THAT IT WAS NOT IN PTS D/C PAPERWORK. CHECKED PTS O2 SAT. ON 02 IT WAS 95%. TOOK PT OFF 02 VIA NC AT 2L FOR A SHORT PERIOD TO SEE WHAT PTS 02 SAT WOULD BE WITHOUT O2 ON PT. PTS 02 SAT WITHOUT BEING ON OXYGEN WAS 84%. PLACED PT BACK ON 02 AT 2L VIA NC AND RECHECKED PTS 02 SAT WHICH WAS 97%. CYNDY, COMMERCIAL RELIEF DRIVER PAGED CLAUDE SO I COULD TALK TO HER ABOUT MAYBE SENDING PT HOME WITH 02. AWAITING CLAUDE TO CALL BACK.
--- NOTE | 2016-08-15 12:44 | NUR ---
1130- PTS DAUGHTER IS CONCERNED ABOUT PT GOING HOME AND BEING ABLE TO GET AROUND AND TAKE HER MEDICATIONS ORDERED. DORA MAURO TALKED TO CLAUDE, PLASTICS FABRICATION SUPERVISOR. CLAUDE STATED SOMETHING ABOUT TRYING TO GET PT HOME HEALTH. WILL FOLLOW UP WITH CLAUDE BEFORE D/C TO SEE ABOUT GETTING PT HOME HEALTH BEFORE SHE D/C.
--- NOTE | 2016-08-15 13:09 | NUR ---
PHARMACY BROUGHT UP PTS HOME MEDICATIONS TO UNIT. WILL GIVE THEM TO DAUGHTER WHEN DAUGHTER GETS BACK IN THE ROOM.
--- NOTE | 2016-08-15 13:10 | NUR ---
CLAUDE, MILL PLATFORM SUPERVISOR WENT INTO PTS ROOM TO TALK TO PT AND FAMILY ABOUT D/C PLANS. DAUGHTER AND OF PT ARE CURRENTLY OUT OF ROOM. PT GAVE CLAUDE HER OTHER DAUGHTERS PHONE NUMBER. CLAUDE IS CURRENTLY ON THE PHONE TALKING TO PTS OTHER DAUGHTER ABOUT D/C PLANS. WILL CONTINUE TO MONITOR.
--- NOTE | 2016-08-15 13:24 | NUR ---
CALLED DR. BAUER OFFICE TO SEE ABOUT GETTING ORDERS FOR HOME HEALTH, PORTABLE O2 FOR HOME, AND A 3 IN 1 BEDSIDE COMMODE PER FAMILIES REQUEST. TALKED TO ANSWERING SERVICE, STATED THEY WOULD PAGE DR. SANTIAGO. AWAITING CALLBACK.
--- NOTE | 2016-08-15 13:32 | NUR ---
SPOKE WITH DR. SANTIAGO RECEIVED NEW ORDERS TO SEND PT HOME ON HOME HEALTH WITH PORTABLE O2 AND A SHOWER CHAIR.
--- NOTE | 2016-08-15 13:46 | NUR ---
GAVE PTS DAUGHTER AND PTS HOME MEDICATIONS THAT PHARMACY BROUGHT TO ME IN A SEALED BAG WITH PTS METAL ROOM DENTAL TECHNICIAN IT.
[2016-08-15 15:50] VITALS: BP 136/59
--- NOTE | 2016-08-15 16:07 | NUR ---
PT IS CURRENTLY WAITING ON [facility] TO BRING PORTABLE OXYGEN BEFORE SHE CAN BE D/C. INFORMED PT AND FAMILY OF THIS. THEY STATED THEY UNDERSTOOD. AWAITING ON [facility].
--- NOTE | 2016-08-15 16:16 | NUR ---
vvLate Entry CM was advised by primary nurse that patient's daughters wanted home health. CM advised the primary nurse that we would need a MD order & to please obtain. Weekday CM had recommended home health in assessment of needs. CM went to the patient's room, she was alone. Spoke with patient & she will accept home health. Her daughter was getting lunch. CM requested the telephone number for the dtr in [place]. TC to Sabina at [phone]. Discussed patient needs. She requested SN/ PT/OT/ inpatient nursing aide. She also requested walker and 3/1 chair for shower and raised toilet seat. Discussed oxygen needs. Plan for stationary and portable oxygen. CM spoke with patient's other daughter and her spouse when they returned from lunch at the patient's bedside. POC for home health obtained. Pt /Family requested [facility]. TC to [place]. Spoke w/ Cele. Received CB that case had been accepted from the supervisor steel division. CM provided contact phone number for Fiordaliza to primary nurse for discharge paperwork. CM faxed referral information to [phone]. [facility] as patient and family had no preferred provider. Spoke with on-call. . Faxed MD orders to [phone], clinical information and O2 sats. CM requested provider speak directly w/ the patient/ family regarding the walker and 3/1 chair request. Await delivery of DME. Primary nurse advised family approximate time for delivery.
--- NOTE | 2016-08-15 17:39 | NUR ---
URSULA MELGAR EXPLAINED D/C PAPERWORK TO PT AND WITNESSED PT SIGN AND DATE THEM. TALIA REMOVED IV WITH CATH TIP INTACT. PT D/C VIA WHEELCHAIR HOME.
--- NOTE | 2016-08-17 15:45 | EC ---
PATIENT:LOPEZ CASAREZ DATE OF SERVICE: 08/09/16 SEX: F MEDICAL RECORD: [id number] DATE OF : [birth year] LOCATION:D.M2 D.213 AGE OF PATIENT: 65 ADMISSION DATE: 08/09/16 REFERRING PHYSICIAN: INTERPRETING PHYSICIAN: JULIANNA SAMUELS M.D. ECHOCARDIOGRAM REPORT ECHO CHARGES 4 ECHO COMPLETE CLINICAL DIAGNOSIS: CHF ECHOCARDIOGRAPHIC MEASUREMENTS (adult normal given) AC root (d.<3.7cm) 2.4 LV Septum d (<1.2 cm> 1.2 Valve Excursion 1.4 LV Septum (systole) 1.8 Left Atria (s.<4.0cm> 4.2 LVPW d(<1.2cm) 1.2 RV (d.<2.3cm) 2.4 LVPW (sytole) 1.8 LV diastole(<5.6CM) 4.6 MV E-F(>70mm/sec) LV systole 2.5 LVOT Diameter 1.4 MV exc.(>10mm) Est.ejection fraction (50-75%) Pericardial Effusion N DOPPLER: LVIT A 124 E 138 LA RVSP 57.0 LVOT 90.0 AOP1/2T Asc. Ao 252 RVOT 101 RA PA 116 AV Gradient Peak 26.0 AV Mean 12.0 AV Area 0.8 MV Gradient Peak 11.2 MV Mean 5.6 MV Area COMMENTS: Systems Operator: Bety VENCESOE Care Team Assistant:Isma Samuels TAPE# PACS DATE OF SERVICE: 08/10/2016 REFERRING PHYSICIAN: Darek Ham MD INDICATION: CHF. DESCRIPTION: Left ventricle demonstrates left ventricular hypertrophy. No wall motion abnormalities were seen. Estimated ejection fraction is 55%. Mitral valve is structurally normal. There is mild regurgitation seen. Left atrium is mildly dilated. The aortic valve leaflets are thickened. Peak gradient across ECHOCARDIOGRAM REPORT [id number] LOPEZ CASAREZ the valve is 26 mmHg with a mean of 12 mmHg. Right ventricle is normal in size and function. Tricuspid valve is normal. There is moderate regurgitation seen. Right ventricular systolic pressure is elevated at 57 mmHg. There is no pericardial effusion noted. IMPRESSION: 1. Left ventricular hypertrophy with preserved ejection fraction of 55%. 2. Moderate mitral regurgitation. 3. Mild aortic stenosis. 4. Moderate tricuspid regurgitation with elevated pulmonary pressures. TRANSINT:[id number] Voice Confirmation ID: [id number] DOCUMENT ID: [id number] JULIANNA SAMUELS M.D. at 1545 CC: [id number] DICTATION DATE: 08/10/161707 TECH INTERN: 08/10/162013 DIS IN 08/15/16 [place] [id number] [place] [id number]
--- NOTE | 2016-08-31 13:50 | HP ---
PATIENT: LOPEZ CASAREZ MEDICAL RECORD: [id number] ACCOUNT: [id number] LOCATION:[address] : 54 ADMISSION DATE: 08/09/16 HISTORY AND PHYSICAL EXAMINATION Admission History and Physical DATE OF ADMISSION: 08/09/2016 CHIEF COMPLAINT: Low blood sugar. HISTORY OF PRESENT ILLNESS: This is a 65-year-old female with a history of poorly controlled diabetes. From the notes I see, it has been remarked that her sugar maybe becoming under better control. She was just in the hospital a little over 10 days ago and spent the night. From what I can see, she was admitted with hypoglycemia, anemia, leukopenia, bloating and some dependent edema. It looks like the only medicines that she takes at home is metformin 500 mg twice a day and some NovoLog insulin on a sliding scale. Pravastatin, aspirin and lisinopril were started then; however, when she comes in today, the report is that she is on 50 units of either Lantus or a similar long-acting Tresiba, so I am not sure exactly what she is supposed to be on. The patient is very confused and really cannot tell a whole lot and the is not around as well. The daughter is in the room right now. She is not sure what all her medicines are and stands to reason with her sugar being down under 20 that she probably did have some long-acting insulin that she took and the report is she has not had much to eat in the last 2-3 days and that can certainly lead to an episode of hypoglycemia. In the ER today because her abdomen was so distended and she has swelling all over, the CT of the abdomen and pelvis was done showing bilateral pleural effusions and a significant amount of ascites. I am not sure if this has ever been worked up. Her troponin was elevated at 0.292 going down to 0.218 on the second draw and her proBNP is 4284. There is a remote history of either congestive heart failure or some sort of heart problem. She was last seen in logistic specialist's office about 3 years ago the daughter thinks. She is admitted to the ICU for acute mental status changes with hypoglycemia and a diabetic on insulin. Her temperature in the ER was also 92.3. PAST MEDICAL AND SURGICAL HISTORY: According to reports is that she has had diabetes, seborrheic dermatitis, peripheral neuropathy, insomnia, chronic back pain, hypertension, depression/anxiety, hyperlipidemia, osteoarthritis and breast cancer with lumpectomy in 2003. SOCIAL HISTORY: She is and reportedly disabled for her diabetes and chronic back pain. HABITS: Never smokes. No alcohol or drugs. DRUG ALLERGIES: Unknown. MEDICATIONS: Again, she was just discharged from here a couple days ago with the list of medicines being pravastatin 20 mg a day, aspirin 81 mg a day, lisinopril 2.5 mg a day, metformin 500 mg twice a day and NovoLog on sliding scale. In our office, further medications shown are Bumex 2 mg twice a day, Flonase nasal spray daily, gabapentin 300 mg at bedtime, potassium chloride 20 mEq once a day and tramadol one every 4-6 hours as needed, so I not sure exactly what all active medications that she has. HISTORY AND PHYSICAL [id number] LOPEZ CASAREZ FAMILY HISTORY: Reported cardiovascular disease in her parents and sibling with cardiovascular disease, diabetes and cancer. REVIEW OF SYSTEMS: Unobtainable in this patient who is very confused and slow thinking right now. PHYSICAL EXAMINATION: VITAL SIGNS: Today, temperature 97.7, pulse 87, respirations 11, blood pressure 150/72, O2 sat 94% on 3 liters O2. GENERAL: She is awake, but slow to speak, appears confused. HEENT: Grossly within normal limits. NECK: Supple. HEART: Regular rate and rhythm without murmur. LUNGS: With diffuse wheezing and crackles. ABDOMEN: Distended, but nontender. EXTREMITIES: With 2+ pitting edema bilaterally. LABORATORY DATA: Urinalysis is yellow, clear, trace blood, few bacteria. CBC with a white count 4100, hemoglobin 10.8, hematocrit 36.8, platelets number 253,000. Basic metabolic panel is all okay except BUN 49, creatinine 1.7. Her liver functions are fine. Lactic acid level is 1.0, INR 1.1. ProBNP 4284. First set of cardiac enzymes, CK was 95, CK-MB was 6.6 and troponin 0.292. Second set showed a CK of 88, CK-MB 5.7 with troponin of 0.218. DIAGNOSTIC DATA: Chest x-ray showed bilateral effusions, vascular congestion. CT of the abdomen and pelvis shows bilateral pleural effusion, significant ascites and adrenal lesion with previous biopsy, otherwise nothing acute. EKG normal sinus rhythm, rate 82. Lateral infarct uncertain age. ASSESSMENT: 1. Type 2 diabetes, on insulin, now hypoglycemic. 2. Hypothermia. 3. Altered mental status. 4. Congestive heart failure. 5. Elevated troponin. PLAN: Cardiology has been consulted. Serial cardiac enzymes are continuing. Echocardiogram will be ordered. She was placed on a D10 continuous infusion right now until blood sugar can go up. She is also on a Bumex drip. She will need further evaluation of the ascites to figure out what is going on there. It sounds like she is seen by catering truck driver. However, the patient is not clear enough to say when the last time she went there. It sounds like she is not keeping a log of her diabetic numbers and sounds like more education is needed for her diabetes. TRANSINT:[id number] Voice Confirmation ID: [id number] DOCUMENT ID: [id number] HISTORY AND PHYSICAL [id number] LOPEZ CASAREZ WILLIAM MD at 1350 CC: [id number] DICTATION DATE: 08/09/16 1535 DIE CUTTING MACHINE OPERATOR: 08/09/16 1605 DIS IN 08/15/16 [facility] [address] [place] [address]
== END 2016-08-15 17:42 | disposition home health service (06) | DRG 637 ==
LOC: D.ER 06:21 → D.M2 10:18 → D.ICU 10:18 → D.M2 08-12 09:57
PROVIDERS: Emergency Medicine; Family Medicine; ADMIT Family Medicine
DX: E11.649 Type 2 diabetes mellitus with hypoglycemia without coma (principal); I50.21 Acute systolic (congestive) heart failure; G93.41 Metabolic encephalopathy; R18.8 Other ascites; I24.8 Other forms of acute ischemic heart disease; E87.3 Alkalosis; Z79.4 Long term (current) use of insulin; G62.9 Polyneuropathy, unspecified; E78.5 Hyperlipidemia, unspecified; T68.XXXA Hypothermia, initial encounter; I11.0 Hypertensive heart disease with heart failure; E11.43 Type 2 diabetes mellitus with diabetic autonomic (poly)neuropathy

== ENCOUNTER → 2016-09-15 10:19 | Outpatient (CLI) | payer MEDICARE ==
[2016-08-10 09:27] VITALS: BMI 33.2
[~2016-09-15 10:19] MED LIST changes: +FUROSEMIDE20 MG PO; +K-DUR20 MEQ PO; +NEURONTIN600 MG PO; +NOVOLOG100 U/M1; +OMEPRAZOLE40 MG PO; +REGLAN10 MG PO; +TRESIBA FL100 UNIT/1 SC
== END | disposition home or self-care (01) ==
LOC: D.US 10:19
DX: K59.00 Constipation, unspecified (principal); R14.3 Flatulence

== ENCOUNTER → 2016-09-21 07:37 | Outpatient (CLI) | payer MEDICARE ==
[2016-08-10 09:27] VITALS: BMI 33.2
== END | disposition home or self-care (01) ==
LOC: D.LAB 07:37 → D.MRI 08:30
PROVIDERS: Internal Medicine Gastroenterology
DX: R93.8 Abnormal findings on diagnostic imaging of other specified body structures (principal)

== ENCOUNTER 2016-10-28 09:59 | Day surgery (SDC) | payer MEDICARE ==
[~2016-10-28] VITALS: Ht 152.4 cm; Wt 74.5 kg
[~2016-10-28 09:59] MED LIST changes: -OMEPRAZOLE40 MG PO
[2016-10-28 11:13] VITALS: BP 140/64; Ht 152.4 cm; Wt 74.5 kg
[2016-10-28 11:13] LABS: BASOPHILS 0.7 % (0.0-2.0); EOSINOPHILS 4.5 % (0-7); HEMOGLOBIN 10.7 g/dL (12-16); IMMATURE GRANULOCYTES 0.2 % (0-5); LYMPHOCYTES 30.8 % (15-50); MCH 28.8 pg (26.0-34.0); MCHC 30.6 g/dL (31.0-37.0); MCV 94.1 fL (80.0-100.0); MEAN PLATELET VOLUME 9.1 fL (7.4-10.4); NEUTROPHILS 58.8 % (40-80); PLATELET COUNT 235 10x3/uL (130-400); RBC 3.72 10x6/uL (4.00-5.40); RDW 14.9 % (11.5-14.5)
[2016-10-28 11:27] LABS: ANION GAP 11.4 mmol/L (8-16); CALCIUM 8.6 mg/dL (8.5-10.1); CREATININE - SERUM 0.9 mg/dL (0.6-1.3); POTASSIUM - SERUM 4.4 mmol/L (3.5-5.1)
[2016-10-28 13:04] LABS: APTT 24.9 SECONDS (22.8-39.4); INR 0.94 (0.85-1.17); PROTIME 12.5 SECONDS (11.6-15.0)
[2016-10-28] MEDS ORDERED: OMEPRAZOLE40 MG PO (13:26)
--- NOTE | 2016-10-29 11:10 | OP ---
PATIENT NAME: LOPEZ CASAREZ MEDICAL RECORD: [id number] :54 LOCATION:[facility] ADMISSION DATE: SURGEON: AVE LOVE DO DATE OF OPERATION: 10/28/2016 PROCEDURE: EGD with biopsies. SCOPE: Olympus video gastroscope. MEDICATIONS: Propofol 180 mg IV per anesthesia. INDICATIONS FOR PROCEDURE: Gas and bloating as well as heartburn. FINDINGS: Informed consent was given. The patient was made comfortable with the above medication. After reaching an adequate level of sedation by slow IV push, the patient was placed on her left side. The endoscope was then advanced under direct visualization through the mouth to the second portion of duodenum. The upper, middle, and lower thirds of the esophagus appeared normal. At the GE junction, there was some mild LA class B reflux induced esophagitis. The scope was advanced into the stomach and retroflexed to view the cardia which appeared normal. There were some patchy areas of granular and erythematous tissue in the fundus, body, and antrum of the stomach. This is consistent with possible gastritis. Random biopsies were taken from the antrum, incisura and body of the stomach and sent for histology and to rule out H. pylori. The scope was advanced into the duodenum where the bulb and second portion of the duodenum appeared normal. It was withdrawn back into the stomach and a biopsy was taken of one of the few benign appearing fundic gland polyps present in the fundus and body of the stomach. The scope was then withdrawn from the patient. The patient tolerated the procedure well and there were no complications. ESTIMATED BLOOD LOSS: Less than 5 cc. IMPRESSION: 1. Reflux esophagitis grade B. 2. Possible gastritis involving the fundus, antrum, and body of the stomach. Biopsies were taken. 3. A few benign appearing fundic gland polyps. Biopsies taken. PLAN AND RECOMMENDATIONS: 1. Discharge home when recovery parameters are met. 2. Reflux precautions. 3. Continue current diet. 4. Trial of omeprazole 40 mg daily, q.a.m. times 60 days. 5. Proceed with colonoscopy as scheduled. 6. Follow up in the GI clinic as needed. 7. With a history of gastroparesis; if symptoms worsen, we will consider gastric emptying study. TRANSINT:[id number] Voice Confirmation ID: [id number] DOCUMENT ID: [id number] OPERATIVE REPORT [id number] HERMELINDO,LOPEZ AVE SANDS DO at 1110 CC: [id number] DICTATION DATE: 10/28/16 1301 SUB MASTER: 10/28/16 1528 [facility] 10/28/16 [facility] [address] [place] [address]
== END 2016-10-28 13:55 | disposition home or self-care (01) ==
LOC: D.OPS 09:59
PROVIDERS: Anesthesiology
DX: K21.0 Gastro-esophageal reflux disease with esophagitis (principal); K31.7 Polyp of stomach and duodenum; K29.50 Unspecified chronic gastritis without bleeding

== ENCOUNTER 2016-11-16 10:52 | Day surgery (SDC) | payer MEDICARE ==
[~2016-11-16] VITALS: Ht 152.4 cm; Wt 65.9 kg
[~2016-11-16 10:52] MED LIST changes: +OMEPRAZOLE40 MG PO
[2016-11-16 12:51] LABS: BASOPHILS 0.4 % (0-2); HEMATOCRIT 33.9 % (36.0-48.0); HEMOGLOBIN 10.5 g/dL (12-16); LYMPHOCYTES 35.7 % (15-50); MCH 29.5 pg (26.0-34.0); MCV 95.2 fL (80.0-100.0); MEAN PLATELET VOLUME 8.9 fL (7.4-10.4); NEUTROPHILS 52.9 % (40-80); PLATELET COUNT 261 10x3/uL (130-400); RBC 3.56 10x6/uL (4.00-5.40); RDW 14.4 % (11.5-14.5); WBC 4.7 10x3/uL (4.8-10.8)
[2016-11-16 13:08] LABS: ANION GAP 9.7 mmol/L (8-16); CARBON DIOXIDE 30.7 mmol/L (21.0-32.0); CREATININE - SERUM 0.9 mg/dL (0.6-1.3); POTASSIUM - SERUM 4.4 mmol/L (3.5-5.1)
[2016-11-16 13:27] VITALS: BP 153/67; Ht 152.4 cm; Wt 65.9 kg
--- NOTE | 2016-11-17 10:00 | OP ---
PATIENT NAME: LOPEZ CASARZE MEDICAL RECORD: [id number] :54 LOCATION:[facility] ADMISSION DATE: SURGEON: AVE LOVE DO DATE OF OPERATION: 11/16/2016 PROCEDURE: Colonoscopy with polypectomy including hot forceps polypectomy and hot snare polypectomy as well as hemostasis with endoclipping. INDICATIONS FOR PROCEDURE: Change in bowel habits, constipation, gas and bloating. WITHDRAWAL TIME: Greater than 15 minutes. MEDICATIONS: Propofol 510 mg IV per anesthesia. ESTIMATED BLOOD LOSS: Less than 3 cc. FINDINGS: Informed consent was given. The patient was made comfortable with the above medication. After reaching an adequate level of sedation, the patient was placed in her left side. A digital rectal examination was performed and it was within normal limits. The endoscope was then advanced under direct visualization through the rectum to the cecum, evidenced by the appendiceal orifice and ileocecal valve. There were 2 polyps in the cecum, which were benign and sessile appearing. They measured approximately 2-4 mm in diameter. Both were removed with hot forceps in a single piece and completely retrieved. The endoscope was advanced further and 2 transverse polyps were located in the proximal and distal transverse colon. The first was a benign and sessile appearing polyp measuring approximately 4 mm in diameter. It was removed with hot forceps. It was removed in a single piece and completely removed. The second polyp was a larger lesion measuring approximately 1 cm in size and was flattening compassing a fold. It was able to be snared completely in a single piece. It was completely retrieved. For hemostasis, an endoclip was placed over the defect site successfully. The only other finding was a small to medium size hemorrhoids, which were not bleeding on retroflexion in the rectum. The scope was withdrawn from the patient. The patient tolerated the procedure well and there were no complications. IMPRESSION: 1. Polyps located in the transverse colon and cecum as described above. All polyps removed. 2. Internal hemorrhoids. PLAN AND RECOMMENDATIONS: 1. Discharge home when recovery parameters are met. 2. Continue current medications. 3. Continue current diet. 4. Anticipate a recall colonoscopy in 6 months to recheck polyps sites, especially the flat polyp, which was removed in a single piece in the transverse colon. This will also be repeat based on a fair to good prep, which made difficulty seeing the right side of the colon. 5. Regarding the patient's occasional constipation, I recommend using as needed MiraLax. Oral medications are available as needed if the MiraLax is not sufficient. TRANSINT:[id number] Voice Confirmation ID: [id number] DOCUMENT ID: [id number] OPERATIVE REPORT [id number] LOPEZ CASAREZ,AVE Mcleod DO at 1000 CC: [id number] DICTATION DATE: 11/16/161657 SKIVER WELT END: 11/16/16 7394 [facility] 11/16/[address] [address]
== END 2016-11-16 18:45 | disposition home or self-care (01) ==
LOC: D.OPS 10:52
PROVIDERS: Anesthesiology
DX: D12.0 Benign neoplasm of cecum (principal); R19.4 Change in bowel habit; R14.0 Abdominal distension (gaseous); D12.3 Benign neoplasm of transverse colon; K64.8 Other hemorrhoids; Z01.812 Encounter for preprocedural laboratory examination; I10 Essential (primary) hypertension; E11.9 Type 2 diabetes mellitus without complications; K21.9 Gastro-esophageal reflux disease without esophagitis

== ENCOUNTER → 2016-12-07 15:05 | Outpatient (CLI) | payer MEDICARE ==
[2016-11-16 13:27] VITALS: BMI 28.3
== END | disposition home or self-care (01) ==
LOC: D.CT 15:05
DX: R27.8 Other lack of coordination (principal); R91.1 Solitary pulmonary nodule

== ENCOUNTER 2016-12-17 08:03 | Outpatient (CLI) | payer MEDICARE ==
[~2016-12-17] VITALS: Ht 152.4 cm; Wt 72.6 kg
[2016-12-17 08:47] VITALS: BP 134/71; Ht 152.4 cm; Wt 72.6 kg
--- NOTE | 2016-12-17 09:26 | NUR ---
IV STARTED WITH 20G NEEDLE X 1 TRY BY ALESSANDRO JOHN IN LEFT ARM
[2016-12-17 09:36] LABS: BASOPHILS 0.6 % (0-2); EOSINOPHILS 6.2 % (0-7); HEMOGLOBIN 9.7 g/dL (12-16); LYMPHOCYTES 32.1 % (15-50); MCH 29.6 pg (26.0-34.0); MCHC 30.3 g/dL (31.0-37.0); MCV 97.6 fL (80.0-100.0); MEAN PLATELET VOLUME 9.3 fL (7.4-10.4); MONOCYTES 7.1 % (2-11); PLATELET COUNT 225 10x3/uL (130-400); RBC 3.28 10x6/uL (4.00-5.40); RDW 13.9 % (11.5-14.5); WBC 4.7 10x3/uL (4.8-10.8)
[2016-12-17 09:48] LABS: ANION GAP 8.5 mmol/L (8-16); CALCIUM 8.8 mg/dL (8.5-10.1); CARBON DIOXIDE 31.4 mmol/L (21.0-32.0); CREATININE - SERUM 1.2 mg/dL (0.6-1.3); INR 1.04 (0.85-1.17); POTASSIUM - SERUM 3.9 mmol/L (3.5-5.1); PROTIME 13.5 SECONDS (11.6-15.0)
[2016-12-17 09:49] LABS: APTT 25.7 SECONDS (22.8-39.4)
--- NOTE | 2016-12-17 14:31 | NUR ---
DRESSING CLEAN AND DRY C/D/I VOIDED
--- NOTE | 2016-12-17 14:32 | NUR ---
VS TAKEN AND PLACED POST OP SHEET
--- NOTE | 2016-12-17 16:26 | NUR ---
1515 IV DC WITH CATHER TIP INTACT
== END 2016-12-17 15:30 | disposition home or self-care (01) ==
LOC: D.CT 08:03 → D.OPS 08:03 → D.CT 11:00 → D.OPS 15:30
PROVIDERS: General Practice
DX: R91.1 Solitary pulmonary nodule (principal)

== ENCOUNTER → 2017-01-06 08:29 | Outpatient (CLI) | payer MEDICARE ==
[2016-12-17 08:47] VITALS: BMI 31.3
== END | disposition home or self-care (01) ==
LOC: D.OPS 08:29 → D.SP 11:00 → D.OPS 11:00
DX: Z53.9 Procedure and treatment not carried out, unspecified reason (principal)

== ENCOUNTER → 2017-03-03 17:16 | Outpatient (CLI) | payer MEDICARE ==
[2016-12-17 08:47] VITALS: BMI 31.3
[2017-03-03 19:36] LABS: ANION GAP 10.8 mmol/L (8-16); CALCIUM 8.4 mg/dL (8.5-10.1); CARBON DIOXIDE 31.7 mmol/L (21.0-32.0); CREATININE - SERUM 1.3 mg/dL (0.6-1.3); POTASSIUM - SERUM 4.5 mmol/L (3.5-5.1)
== END | disposition home or self-care (01) ==
LOC: D.LABREF 17:16
PROVIDERS: Internal Medicine Interventional Cardiology
DX: E87.6 Hypokalemia (principal)

== ENCOUNTER 2017-03-10 12:56 | Inpatient (IN) | payer MEDICARE ==
[~2017-03-10] VITALS: Ht 152.4 cm; Wt 72.5 kg
--- NOTE | 2017-03-10 13:30 | NUR ---
PT RECEIVED FROM ADMISSION TO ADMIT TO 1216. SHE WAS ADMITTED FROM DR ANGULO'S OFFICE. DAUGHTER IS WITH HER. PT NEEDED TO GO TO BATHROOM SO DAUGHTER ASSISTED HER AND GOT PT IN A GOWN. PT NOW IN BED.
--- NOTE | 2017-03-10 13:45 | NUR ---
I CALLED DR ANGULO'S OFFICE AND REQUESTED A MED LIST STAFF RADIOLOGIST AT [facility] STATES THAT SHE WOULD SEND TO US
--- NOTE | 2017-03-10 13:50 | NUR ---
PT IS LYING IN BED. OFFERS NO COMPLAINTS AT THIS TIME. GEN- AWAKE AND ALERT. SEEMS TO HAVE SOME DIFFICULTY HEARING. HEART- RRR. LUNGS- CLEAR. HEART- RRR. ABD- DISTENDED. NO TENDERNESS NOTED. FEW BS+. EXT- 1-2 + PITTING EDEMA LE. BED IS LOW. SIDE RAILS UP X 2 AND CALL LIGHT IN REACH.
--- NOTE | 2017-03-10 14:15 | NUR ---
CALLED DR ANGULO'S OFFICE BACK REQUESTING MED LIST FOR PT. STATES SHE IS BUSY BUT WILL DO HER BEST.
--- NOTE | 2017-03-10 14:30 | NUR ---
DR GILMORE'S OFFICE CALLED FOR MED REC FOR PT. TALKED TO DR JAUREGUI'S NURSE AND SHE STATES THAT SHE WILL SEND THIS.
[2017-03-10 15:04] LABS: BASOPHILS 0.4 % (0-2); EOSINOPHILS 2.9 % (0-7); HEMATOCRIT 37.7 % (36.0-48.0); HEMOGLOBIN 11.4 g/dL (12-16); LYMPHOCYTES 23.3 % (15-50); MCH 29.9 pg (26.0-34.0); MCHC 30.2 g/dL (31.0-37.0); MEAN PLATELET VOLUME 9.2 fL (7.4-10.4); MONOCYTES 7.9 % (2-11); NEUTROPHILS 65.5 % (40-80); PLATELET COUNT 270 10x3/uL (130-400); RBC 3.81 10x6/uL (4.00-5.40); RDW 15.8 % (11.5-14.5); WBC 5.5 10x3/uL (4.8-10.8)
[2017-03-10 15:21] LABS: ALBUMIN 2.8 g/dL (3.4-5.0); ANION GAP 7.7 mmol/L (8-16); BILIRUBIN - TOTAL 0.38 mg/dL (0.2-1.3); CALCIUM 8.6 mg/dL (8.5-10.1); CARBON DIOXIDE 32.9 mmol/L (21.0-32.0); POTASSIUM - SERUM 4.6 mmol/L (3.5-5.1); PROTEIN - SERUM 6.9 g/dL (6.4-8.2)
--- NOTE | 2017-03-10 16:43 | NUR ---
PTS BS IS 170. SHE WAS GIVEN HUMULIN INSULIN 4 U SUB CU LEFT ARM.
--- NOTE | 2017-03-10 17:05 | NUR ---
dr trivedi is here to see pt. new orders noted.
[2017-03-10 17:55] VITALS: BP 145/74; BMI 33.2
--- NOTE | 2017-03-10 18:08 | NUR ---
IV STARTED R WRIST. PATENT. NS AT 50 ML INFUSING.
--- NOTE | 2017-03-10 18:13 | NUR ---
DR JAUREGUI HERE TO SEE PT. HE HELD METFORMIN DUE TO PT HAVING CT TOMM WITH CONTRAST. NEW ORDERS NOTED.
--- NOTE | 2017-03-10 18:21 | NUR ---
DR JAUREGUI WANTS PT TO HAVE A DOLAN AND ALSO STATES THAT PT MAY HAVE O2 2L WHILE SLEEPING.
[2017-03-10 19:15] VITALS: BP 143/68
--- NOTE | 2017-03-10 19:15 | NUR ---
AWAKE DURING INITIAL ROUNDS. INTRODUCED SELF. V/S TAKEN. ASSESSMENT DONE. STATUS Dx: ANASARCA, LYMPHOMA (?). ASSISTED TO THE BATHROOM AND BACK TO BED. BOTH LOWER EXTREMITIES SWOLLEN AND HARD TO TOUCH. IVF--NS TO R WRIST @ 50cc/hr VIA IV PUMP. IV SITE OK. INFORMED PT REGARDING DOLAN CATH INSERTION. SPOUSE IN THE ROOM.
--- NOTE | 2017-03-10 19:20 | NUR ---
STAFF FROM RADIOLOGY HERE TO BRING PT CONTRAST TO DRINK PRIOR TO CT SCAN.
--- NOTE | 2017-03-10 20:25 | NUR ---
TO RADIOLOGY FOR CT SCAN OF ABD/PELVIS AND CHEST VIA WHEELCHAIR.
--- NOTE | 2017-03-10 20:50 | NUR ---
BACK FROM CT SCAN.
--- NOTE | 2017-03-10 21:00 | NUR ---
PAVEL DRIP STARTED @ 2.5mls/hr. HS MEDS GIVEN. SEE E-MAR.
--- NOTE | 2017-03-10 21:20 | NUR ---
DOLAN CATH FR #16 INSERTED. URINE SPECIMEN OBTAINED FOR UA.
--- NOTE | 2017-03-10 21:53 | NUR ---
FSBS DONE. 209mg/dl. HUMULIN INSULIN 8 units GIVEN PER SLIDING SCALE. SEE E-MAR.
[2017-03-10 22:35] LABS: APPEARANCE CLEAR (CLEAR); BILIRUBIN NEGATIVE (NEGATIVE); COLOR YELLOW (YELLOW); GLUCOSE 50 mg/dL (NEGATIVE); KETONE NEGATIVE (NEGATIVE); LEUKOCYTE ESTERASE 2+ (NEGATIVE); NITRITE NEGATIVE (NEGATIVE); PROTEIN 1+ mg/dL (NEGATIVE); SPECIFIC GRAVITY 1.015 (1.005-1.020); UROBILINOGEN NORMAL (NORMAL)
[2017-03-10 22:36] LABS: BACTERIA MANY /hpf (NONE SEEN); EPITHELIAL CELLS 0-5 /hpf (0-5); RED CELLS - URINE 0-5 /hpf (0-5)
--- NOTE | 2017-03-10 23:00 | NUR ---
AWAKENED FOR V/S. IV PUMP CLEARED.
[2017-03-10 23:01] VITALS: BP 148/74
--- NOTE | 2017-03-11 01:30 | NUR ---
EYES CLOSED. LEFT UNDISTURBED.
[2017-03-11 03:16] VITALS: BP 114/58
--- NOTE | 2017-03-11 03:16 | NUR ---
AWAKENED FOR V/S. IV PUMP CLEARED. DOLAN CATH BAG EMPTIED.
--- NOTE | 2017-03-11 05:10 | NUR ---
AWAKE. WANTS TO GO TO THE BATHROOM TO VOID. REMINDED PT SHE HAS A DOLAN CATH. SLEPT FAIRLY WELL DURING THE NIGHT. CONTINUING PLAN OF CARE.
--- NOTE | 2017-03-11 06:19 | NUR ---
MANAGER CUSTOMS HERE TO DRAW AM LAB.
--- NOTE | 2017-03-11 06:30 | NUR ---
BLOOD SUGAR 55mg/dl. ORANGE JUICE GIVEN. PHARMAVY NOTIFIED TO BRING GLUCOSE GEL PER PROTOCOL.
[2017-03-11 06:51] LABS: ANION GAP 5.5 mmol/L (8-16); CARBON DIOXIDE 32.6 mmol/L (21.0-32.0); POTASSIUM - SERUM 4.1 mmol/L (3.5-5.1)
[2017-03-11 07:15] VITALS: BP 115/52
--- NOTE | 2017-03-11 07:15 | NUR ---
PT IS SITTING UP IN BED SLEEPING. EASILY AWAKENED. SHE OFFERS NO COMPALINTS THIS AM. IT WAS REPORTED THIS AM THAT PT HAD A BM LAST PM. GEN- AWAKE AND ALERT. LUNGS- CLEAR. HEART- RRR. ABD- DISTENDED. NON TENDER, BS+. EXT WITH 2-3+ PITTING EDEMA BILATERAL LE. IV PATENT R WRIST. NS INFUSING @ 50 CC/HR. PT IS RECEIVING BUMEX DRIP. DOLAN INTACT WITH YOEL COLORED URINE. BED IS LOW, SIDE RAILS UP X 2 AND CALL LIGHT IN REACH. HER BS THIS AM WAS 107.
--- NOTE | 2017-03-11 07:47 | NUR ---
PT WAS ASSISTED WITH GETTING HER BREAKFAST TRAY SET UP. NEW MENU FILLED OUT FOR PT.
[2017-03-11 11:01] VITALS: Ht 152.4 cm; Wt 72.5 kg
--- NOTE | 2017-03-11 11:30 | NUR ---
CONTACTED DR LADD ABOUT CONSULT. GAVE HIM RM NUMBER SHE WILL BE TRANSFERRED TO.
--- NOTE | 2017-03-11 11:47 | NUR ---
BS CHECKED AC. BS WAS 106. NO INSULIN GIVEN AT THIS TIME.
--- NOTE | 2017-03-11 12:30 | NUR ---
PT ASSISTED UP TO BATHROOM. PT HAD A LARGE BM. CLEANED UP AND THEN PUT IN WHEELCHAIR TO EAT LUNCH.
--- NOTE | 2017-03-11 13:35 | NUR ---
PT WAS TRANSFERRED TO MED SURG UNIT ROOM 2211. REPORT GIVEN TO CHANTEL JOHN.
[2017-03-11 16:00] VITALS: BP 133/50
--- NOTE | 2017-03-11 16:49 | NUR ---
FSBS 132. NO COVERAGE REQUIRED.
--- NOTE | 2017-03-11 19:25 | NUR ---
ATE ALL OF SUPPER. NO C/O AT THIS TIME. NO CHANGES NOTED. DENIES NEEDS. AT BEDSIDE.
--- NOTE | 2017-03-11 19:34 | NUR ---
PATIENT IS AWAKE, ALERT AND ORIENTED X'S 4. NO SIGNS OF DISTRESS NOTED. PATIENT IS RECIEVING OXYGEN VIA NASAL CANNULA AT 2L/MIN. FAMILY AT BEDSIDE. ALL DENY NEEDS AT THIS TIME.
[2017-03-11 20:00] VITALS: BP 137/56
--- NOTE | 2017-03-11 23:00 | NUR ---
TURNED PATIENT TO HER RIGHT SIDE POSITIONED WITH A PILLOW BEHIND HER BACK.
[2017-03-12] VITALS (13 sets, daily range): BP systolic 125–163; BP diastolic 42–84
[2017-03-12 06:44] LABS: BASOPHILS 0.2 % (0-2); EOSINOPHILS 4.7 % (0-7); HEMATOCRIT 36.9 % (36.0-48.0); HEMOGLOBIN 10.7 g/dL (12-16); IMMATURE GRANULOCYTES 0.2 % (0-5); MCH 29.2 pg (26.0-34.0); MCV 100.5 fL (80.0-100.0); MEAN PLATELET VOLUME 9.1 fL (7.4-10.4); MONOCYTES 8.6 % (2-11); NEUTROPHILS 59.3 % (40-80); PLATELET COUNT 270 10x3/uL (130-400); RBC 3.67 10x6/uL (4.00-5.40); RDW 15.6 % (11.5-14.5); WBC 4.3 10x3/uL (4.8-10.8)
[2017-03-12 06:48] LABS: APTT 26.3 SECONDS (22.8-39.4); INR 1.12 (0.85-1.17); PROTIME 14.3 SECONDS (11.6-15.0)
--- NOTE | 2017-03-12 07:00 | NUR ---
DOLAN CARE COMPLETED
--- NOTE | 2017-03-12 07:30 | NUR ---
AWAKE AND ALERT. ORIENTED X3. NO C/O AT THIS TIME. LUNGS WITH INSPIRATORY WHEEZES AND FAINT CRACKLES THROUGHOUT. OCCASSIONAL DRY COUGH NOTED. SKIN IS INTACT WITHOUT REDNESS. IV TO RIGHT WRIST IS PATENT WITHOUT REDNESS AT INSERTION SITE. DOLAN PATENT WITH CLEAR YELLOW URINE. DENIES NEEDS AT THIS TIME.
--- NOTE | 2017-03-12 09:00 | NUR ---
ATE ALL OF BREAKFAST PER SELF. ASSISTED WITH MENU PER STAFF.
--- NOTE | 2017-03-12 09:45 | NUR ---
PLACED OF BED CHANDLER. HAD VERY LARGE SOFT MEDIUM BROWN STOOL. SKIN CARE PER STAFF. REPOSITIONED IN BED FOR COMFORT.
--- NOTE | 2017-03-12 12:16 | NUR ---
RETURNED FROM PROCEDURE. A/O X3. NO C/O AT THIS TIME.
--- NOTE | 2017-03-12 12:44 | NUR ---
Patient Name: LOPEZ CASAREZ Admission Status: Elective Accout number: [id number] Admission Date: 03-10-2017 : 1950 Admission Diagnosis:PNEUMONIA, UNSPECIFIED ORGANISM Attending: BALJINDER Current LOS: 2 Anticipated DC Date: Planned Disposition: Home Primary Insurance: MEDICARE A & B Discharge Planning Comments: CM MET WITH PATIENT TO ASSESS DISCHARGE PLANNING NEEDS. PATIENT CURRENTLY LIVES AT HOME WITH HER WHERE SHE PLANS TO RETURN TO. SHE STATED THAT HER WILL BE HER SCHEDULING CLERK ON [facility]. PATIENT STATED THAT SHE USE TO [facility] AND WAS HAPPY WITH THEM, IF SHE NEEDED HH AT [facility] SHE WOULD LIKE TO USE THEM AGAIN. SHE HAS 1 STEP TO ENTER IN HER HOME AND IS PARTIAL DEPENDENT. SHE HAS A WALKER AND OXYGEN THAT SHE USES AT NIGHT. CM WILL CONTINUE TO FOLLOW AND ASSIST NEEDED. PCP: MANDO [facility] [address] [place] CASAREZ ([phone]) Utility Locate Technician: Elo Jackson * Is the patient Alert and Oriented? Yes 0 * How many steps to enter\exit or inside your home? 1 0 * PCP MANDO 0 * Pharmacy [facility] [address] 0 * Preadmission Environment Home with Family 0 * ADLs Partial Dependent 0 * Partial ADLs (Assistance needed) Dressing Medication Management Toileting 0 * Equipment Oxygen Walker 0 * List name and contact numbers for known caregivers / representatives who currently or will assist patient after discharge: SHELIA () [phone] 0 * Community resources currently utilized None 0 * Additional services required to return to the preadmission environment? Yes 0 * Can the patient safely return to the preadmission environment? Yes 0 * Has this patient been hospitalized within the prior 30 days at any hospital? No 0 Grand Total: 0
[2017-03-12 13:11] LABS: PROTEIN - BODY FLUID 2.8 G/DL
[2017-03-12 14:36] LABS: LYMPH - BF 76 %; MACROPHAGES BF 20 %; NEUT - BF 4 %
--- NOTE | 2017-03-12 18:45 | NUR ---
ATE ALL OF SUPPER. ASSISTED TO CLEAN UP AND CHANGE GOWN PER STAFF. NO CHANGES NOTED. DENIES NEEDS. FAMILY AT BEDSIDE.
[2017-03-13 00:10] VITALS: BP 135/61
[2017-03-13 04:00] VITALS: BP 139/57
[2017-03-13 05:15] LABS: BASOPHILS 0.2 % (0-2); EOSINOPHILS 4.2 % (0-7); HEMATOCRIT 34.9 % (36.0-48.0); HEMOGLOBIN 10.4 g/dL (12-16); IMMATURE GRANULOCYTES 0.2 % (0-5); LYMPHOCYTES 27.2 % (15-50); MCH 29.5 pg (26.0-34.0); MCHC 29.8 g/dL (31.0-37.0); MCV 99.1 fL (80.0-100.0); MEAN PLATELET VOLUME 9.3 fL (7.4-10.4); MONOCYTES 8.3 % (2-11); NEUTROPHILS 59.9 % (40-80); PLATELET COUNT 247 10x3/uL (130-400); RBC 3.52 10x6/uL (4.00-5.40); RDW 15.6 % (11.5-14.5); WBC 4.6 10x3/uL (4.8-10.8)
[2017-03-13 05:28] LABS: ALBUMIN 2.4 g/dL (3.4-5.0); ANION GAP 4.6 mmol/L (8-16); BILIRUBIN - TOTAL 0.31 mg/dL (0.2-1.3); CALCIUM 8.4 mg/dL (8.5-10.1); CREATININE - SERUM 1.1 mg/dL (0.6-1.3); POTASSIUM - SERUM 3.6 mmol/L (3.5-5.1); PROTEIN - SERUM 6.5 g/dL (6.4-8.2)
--- NOTE | 2017-03-13 05:50 | NUR ---
DOLAN CARE COMPLETED AT THIS TIME USING DOLAN CARE WIPES.
--- NOTE | 2017-03-13 10:09 | NUR ---
ASSISTED PT OFF THE BED CHANDLER. YELLOW, SOFT BM NOTED.
[2017-03-13 10:19] VITALS: BP 132/56
--- NOTE | 2017-03-13 11:55 | NUR ---
PT RESTING COMFORTABLY. REFUSES REPOSITIONING AT THIS TIME.
[2017-03-13 14:08] VITALS: BP 150/52
[2017-03-13 16:09] LABS: ACID FAST SMEAR Negative (()); AFB SPECIMEN PROCESSING Not Indicated (())
[2017-03-13 17:15] VITALS: BP 138/54
[2017-03-13 20:00] VITALS: BP 143/63
[2017-03-14] VITALS: BP 123/69
--- NOTE | 2017-03-14 03:00 | NUR ---
PATIENT RESTING WITH EYES CLOSED AND NO VISIBLE SIGNS OF DISTRESS. BED IN LOWEST POSITION AND CALL LIGHT WITHIN REACH.
[2017-03-14 04:00] VITALS: BP 106/57
[2017-03-14 06:03] LABS: BASOPHILS 0.6 % (0-2); HEMATOCRIT 34.5 % (36.0-48.0); HEMOGLOBIN 10.2 g/dL (12-16); IMMATURE GRANULOCYTES 0.3 % (0-5); LYMPHOCYTES 30.8 % (15-50); MCH 29.3 pg (26.0-34.0); MCHC 29.6 g/dL (31.0-37.0); MCV 99.1 fL (80.0-100.0); MEAN PLATELET VOLUME 9.1 fL (7.4-10.4); MONOCYTES 13.2 % (2-11); NEUTROPHILS 50.1 % (40-80); PLATELET COUNT 241 10x3/uL (130-400); RBC 3.48 10x6/uL (4.00-5.40); RDW 15.5 % (11.5-14.5)
[2017-03-14 06:07] LABS: WBC 3.2 10x3/uL (4.8-10.8)
[2017-03-14 06:48] LABS: ALBUMIN 2.3 g/dL (3.4-5.0); ANION GAP 3.8 mmol/L (8-16); BILIRUBIN - TOTAL 0.3 mg/dL (0.2-1.3); CALCIUM 8.5 mg/dL (8.5-10.1); CREATININE - SERUM 1.1 mg/dL (0.6-1.3); POTASSIUM - SERUM 3.6 mmol/L (3.5-5.1); PROTEIN - SERUM 6.6 g/dL (6.4-8.2)
[2017-03-14 06:50] LABS: CARBON DIOXIDE 41.8 mmol/L (21.0-32.0)
[2017-03-14 10:21] VITALS: BP 127/52
--- NOTE | 2017-03-14 10:58 | NUR ---
PAIN REASSESED 12/02. REFUSED REPOSITIONING AT THIS TIME.
[2017-03-14 12:47] VITALS: BP 140/50
[2017-03-14 16:03] VITALS: BP 134/63
--- NOTE | 2017-03-14 19:20 | NUR ---
RECIEVED SHIFT REPORT. PT IS LYING IN BED. ALERT AND ORIENTED AND ABLE TO VERBALIZE NEEDS. IV IS PATENT AND FLUIDS ARE RUNNING PER ORDER. O2 @ 2 PER NASAL CANNULA. DOLAN IS DRAINING URINE BY GRAVITY. PT REQUIRES SOME ASSISTANCE TURNING IN BED FOR COMFORT AND SKIN CARE. SCD'S ON. PT STATES PAIN IS 9/10. NO NEEDS ARE VERBALIZED AT THIS TIME. WILL CONTINUE TO MONITOR. VISITOR IS AT THE BEDSIDE. SIDE RAILS ARE UP X 2. BED IS IN LOWEST POSITION. BED ALARM FOR SAFETY. CALL LIGHT IS WITHIN REACH.
[2017-03-14 20:00] VITALS: BP 135/53
--- NOTE | 2017-03-14 20:38 | NUR ---
SHIFT ASSESSMENT COMPLETED. NIGHT MEDS GIVEN WITH NO PROBLEMS. PT RECIEVED 8 UNITS INSULIN PER SLIDING SCALE FOR [facility]=[id number]. PT C/O PAIN 04/04. ADMINISTERED PRESCRIBED PRN TYLENOL PER ORDER. DENIES FURTHER NEEDS. WILL MONITOR. SIDE RAILS X 2. BED LOW. BED ALARM ON. CALL LIGHT IN REACH.
--- NOTE | 2017-03-14 21:19 | CN ---
PATIENT NAME:LOPEZ CASAREZ MEDICAL RECORD: [id number] : 54 LOCATION:[facility] ADMIT DATE: 03/10/17 ACCOUNT: [id number] CONSULTING PHYSICIAN: JULIANNA JAUREGUI MD REFERRING PHYSICIAN: ROBBIE ANGULO MD DATE OF CONSULTATION: 03/10/2017 ADMITTING PHYSICIAN: Dr. Angulo. REASON FOR CONSULTATION: Medical management of diabetes and patient with lymphoma and anasarca. HISTORY OF PRESENT ILLNESS: The patient is a 66-year-old female, followed by Dr. Ham and Dr. Angulo with lymphoma. She had lung biopsy for metastatic disease revealing atypical lymphoplasmic infiltrate with kappa light chain predominance. She developed increasing trouble with abdominal distention and shortness of breath. She was seen by Dr. Angulo in his office today and directly admitted to the hospital for diuresis. The patient is diabetic and Tresiba, which is not on our formulary. PAST MEDICAL HISTORY: Admitted last year for cellulitis of left foot, type 2 diabetes mellitus, hypertension, lymphoma, history of diabetic foot ulcer, anemia, peripheral neuropathy, history of carcinoma of the breast, hyperlipidemia and depression. PAST SURGICAL HISTORY: History of mastectomy, lung biopsy. FAMILY HISTORY: Father with hypertension and heart disease. He is . Sister with breast cancer, brother with heart disease and brother with diabetes. SOCIAL HISTORY: Never smoked, never used tobacco or drank alcohol. She is . HOME MEDICATIONS: Gabapentin 600 mg t.i.d., Bumex 2 mg p.o. b.i.d., lisinopril 2.5 mg p.o. daily, Tresiba insulin 50 units subQ q.p.m, metformin 500 mg b.i.d. and NovoLog sliding scale. REVIEW OF SYSTEMS: GENERAL: Marked fatigue as mentioned with poor appetite. HEENT: No recent visual change, sinus congestion, or sore throat. RESPIRATORY: Mild short of breath on exertion. No cough. CARDIAC: No chest pain or claudication. He has had increasing edema in her lower extremities and abdomen. GENITOURINARY: She says she urinates frequently. No dysuria. GYNECOLOGICAL: No vaginal bleeding. ENDOCRINE: Denies polyuria, polydipsia, heat or cold intolerance. MUSCULOSKELETAL: Denies back pain. PSYCHIATRIC: Admits to depressed mood. NEUROLOGIC: No history of stroke, TIA, or vascular headaches. He has chronic neuropathy and burning in her legs and feet. PHYSICAL EXAMINATION: VITAL SIGNS: Temperature is 98.6 Fahrenheit, pulse 80 and regular, respirations 16, blood pressure 145/74 with a sat 94% on room air. HEENT: Normocephalic. Eyes are clear. She has a prominent forehead vein CONSULT REPORT [id number] LOPEZ CASAREZ dilatation. NECK: Supple. CHEST: She has distant breath sounds without wheeze or rales. HEART: Regular rate without MGR. PMI appropriate. BREASTS: Deferred. ABDOMEN: Shows marked abdominal distention, nontender with ascitic wave. PELVIC: Deferred. EXTREMITIES: 3+ pretibial edema bilaterally. NEUROLOGICAL: Oriented to person, place, and time. Cranial nerves grossly intact. Decreased sensation to touch in the bottoms of both feet. Gait was not tested. INTEGUMENT: No rash appreciated. No petechiae noted. LABORATORY DATA: Shows white count of 5500, normal platelet count 270,000, normal diff, H&H is 11.4 and 37.7 respectively. BMP reveals a BUN of 34, creatinine of 1.0, blood sugar of 170, liver functions are normal. CT scan was ordered and pending. ASSESSMENT: 1. [place] light chain lymphoma, metastatic. 2. Ascites with anasarca. 3. Type 2 diabetes mellitus. 4. Diabetic peripheral neuropathy. 5. Essential hypertension. PLAN: We will place the patient on a sliding scale. Currently, we will hold metformin for 3 days as she has to do the head CT, abdomen and pelvis with contrast in a.m. as Tresiba is not available to use, one-third dose Levemir at h.s. until she is tolerating diet. We will follow with you medically. Thank you for this consult. TRANSINT:[id number] Voice Confirmation ID: [id number] DOCUMENT ID: [id number] JULIANNA JAUREGUI MD at 2119 CC: [id number] DICTATION DATE: 03/10/171833 BOLT MACHINE OPERATOR: 03/10/171934 ADM IN [place] [id number] [place] [address]
[2017-03-15] VITALS: BP 140/53
[2017-03-15 04:00] VITALS: BP 125/49
[2017-03-15 05:04] LABS: BASOPHILS 0.3 % (0-2); HEMATOCRIT 34.2 % (36.0-48.0); LYMPHOCYTES 29.3 % (15-50); MCH 29.2 pg (26.0-34.0); MCHC 29.2 g/dL (31.0-37.0); MEAN PLATELET VOLUME 8.9 fL (7.4-10.4); MONOCYTES 9.2 % (2-11); NEUTROPHILS 55.2 % (40-80); PLATELET COUNT 236 10x3/uL (130-400); RBC 3.42 10x6/uL (4.00-5.40); RDW 15.5 % (11.5-14.5); WBC 3.7 10x3/uL (4.8-10.8)
[2017-03-15 05:23] LABS: ALBUMIN 2.3 g/dL (3.4-5.0); ALKALINE PHOSPHATASE 80 U/L (46-116); ALT (SGPT) 15 U/L (10-68); CALCIUM 8.5 mg/dL (8.5-10.1); CHLORIDE - SERUM 98 mmol/L (98-107); CREATININE - SERUM 1.1 mg/dL (0.6-1.3); MAGNESIUM - SERUM 1.7 mg/dL (1.8-2.4); PHOSPHOROUS 4.7 mg/dL (2.5-4.9); PROTEIN - SERUM 6.6 g/dL (6.4-8.2); SODIUM 139 mmol/L (136-145); UREA NITROGEN 34 mg/dL (7-18); eGFR NON AFRICAN AMERICAN 53 mL/min (90-120)
[2017-03-15 05:29] LABS: CALC OSMOLALITY 285 mosm/kg (275-300); GLUCOSE 98 mg/dL (74-106)
--- NOTE | 2017-03-15 05:32 | NUR ---
PT CO2=46. MD AWARE OF INCREASE CO2.
--- NOTE | 2017-03-15 07:00 | NUR ---
REPORT RECIEVED ASSUMED CARE. PATIENT IN BED WITH IV INTACT. NO COMPLAINTS. CALL LIGHT WITHIN REACH.
[2017-03-15 08:17] VITALS: BP 116/48
[2017-03-15 11:11] LABS: FUNGUS STAIN Final report (())
--- NOTE | 2017-03-15 12:00 | NUR ---
PATIENT SITTING UP IN BED EATING. FAMILY ASSISTING. NO COMPLAINTS. CALL LIGHT WITHIN REACH.
[2017-03-15 12:03] VITALS: BP 131/50
--- NOTE | 2017-03-15 14:58 | NUR ---
NUTRITION MONITORING & EVAL CHART REVIEWED, PT VISIT. TOLERATING ADA DIET, GOOD INTAKE BREAKFAST. WILL CONTINUE TO PROVIDE DIET, MONITOR INTAKE. RD FOLLOWING
--- NOTE | 2017-03-15 15:30 | NUR ---
PATIENT IN CHAIR WITH NO COMPLAINTS. IV INTACT. NO COMPLAINTS AT THIS TIME. FAMILY AT BEDSIDE. CALL LIGHT WITHIN REACH.
[2017-03-15 16:14] VITALS: BP 142/50
--- NOTE | 2017-03-15 18:54 | NUR ---
PATIENT IN CHAIR WITH IV INTACT. NO COMPLAINTS OR SIGNS OF DISTRESS. CALL LIGHT WITHIN REACH. FAMILY AT BEDSIDE. CALL LIGHT WITHIN REACH.
--- NOTE | 2017-03-15 19:25 | NUR ---
RECIEVED SHIFT REPORT. PT IS SITTING UP IN CHAIR. ALERT AND ORIENTED AND ABLE TO VERBALIZE NEEDS. O2 @ 2 PER NASAL CANNULA. DOLAN IS DRAINING URINE BY GRAVITY. IV IS PATENT AND SALINE LOC AT THIS TIME. PT HAS BEEN UP WITH PHYSICAL THERAPY. PT IS REQUESTING TO BE ASSISTED BACK TO BED AT THIS TIME. X 2 ASSIST REQUIRED. DRESSING TO LEFT SIDE FROM THORACENTESIS C/D/I. PT STATES PAIN IS 5/10. FAMILY IS AT THE BEDSIDE. SCD'S OFF. NO FURTHER NEEDS AT THIS TIME. WILL CONTINUE TO MONITOR. SIDE RAILS ARE UP X 2. BED IS IN LOWEST POSITION. BED ALARM PLACED ON FOR SAFETY. CALL LIGHT IS WITHIN REACH.
[2017-03-15 20:00] VITALS: BP 112/46
--- NOTE | 2017-03-15 21:44 | NUR ---
SHIFT ASSESSMENT COMPLETED. NIGHT MEDS GIVEN WITH NO PROBLEMS. PT SATS=95%. O2 TURNED DOWN TO 1. PT RECIEVED 8 UNITS INSULIN PER SLIDING SCALE FOR ZZMO=256. SSCHEDULED LEVEMIR ADMINISTERED PER ORDER. NO NEEDS VOICED AT THIS TIME. WILL MONITOR. SIDE RAILS X 2. BED LOW. BED ALARM ON. CALL LIGHT IN REACH.
[2017-03-16] VITALS: BP 130/54
[2017-03-16 04:00] VITALS: BP 116/50
[2017-03-16 05:49] LABS: BASOPHILS 0.6 % (0-2); EOSINOPHILS 5.5 % (0-7); HEMATOCRIT 32.7 % (36.0-48.0); HEMOGLOBIN 9.5 g/dL (12-16); LYMPHOCYTES 24.7 % (15-50); MCH 29.1 pg (26.0-34.0); MCHC 29.1 g/dL (31.0-37.0); MCV 100.3 fL (80.0-100.0); MEAN PLATELET VOLUME 9.1 fL (7.4-10.4); NEUTROPHILS 59.2 % (40-80); PLATELET COUNT 237 10x3/uL (130-400); RBC 3.26 10x6/uL (4.00-5.40); RDW 15.3 % (11.5-14.5); WBC 3.6 10x3/uL (4.8-10.8)
[2017-03-16 06:13] LABS: ALBUMIN 2.2 g/dL (3.4-5.0); ANION GAP 2.1 mmol/L (8-16); BILIRUBIN - TOTAL 0.2 mg/dL (0.2-1.3); CALCIUM 8.4 mg/dL (8.5-10.1); POTASSIUM - SERUM 4.2 mmol/L (3.5-5.1); PROTEIN - SERUM 6.2 g/dL (6.4-8.2)
[2017-03-16 06:17] LABS: CARBON DIOXIDE 41.1 mmol/L (21.0-32.0)
--- NOTE | 2017-03-16 07:00 | NUR ---
REPORT RECIEVED ASSUMED CARE. PATIENT IN BED WITH IV INTACT. NO COMPLAINTS AT THIS TIME. CALL LIGHT WITHIN REACH.
[2017-03-16 09:29] VITALS: BP 108/42
[2017-03-16 12:24] VITALS: BP 124/51
[2017-03-16 16:14] VITALS: BP 123/52
--- NOTE | 2017-03-16 18:45 | NUR ---
PATIENT IN BED WITH IV INTACT. NO COMPLAINTS AT THIS TIME. CALL LIGHT WITHIN REACH.
--- NOTE | 2017-03-16 19:25 | NUR ---
RECIEVED SHIFT REPORT. PT IS LYING IN BED. ALERT AND ORIENTED AND ABLE TO VERBALIZE NEEDS. IV IS PATENT AND SALINE LOC AT THIS TIME. PT HAS BEEN UP WITH PHYSICAL THERAPY TO THE CHAIR. O2 @ 2 PER NASAL CANNULA. SCD'S OFF PER PT REQUEST. DRESSING TO LEFT BACK C/D/I. DOLAN IS DRAINING URINE BY GRAVITY. PT STATES PAIN IS 5/10. NO NEEDS ARE VERBALIZED AT THI TIME. WILL CONTINUE TO MONITOR. SIDE RAILS ARE UP X 2. BED IS IN LOWEST POSITION. CALL LIGHT IS WITHIN REACH.
[2017-03-16 20:00] VITALS: BP 131/52
--- NOTE | 2017-03-16 21:31 | NUR ---
SHIFT ASSESSMENT COMPLETED. NIGHT MEDS GIVEN WITH NO PROBLEMS. PT RECIEVED 10 UNITS INSULIN PER SLIDING SCALE FOR [facility]=350. SCHEDULED LEVEMIR ADMINISTERED PER ORDER. PT C/O PAIN 02/01. ADMINISTERED PRESCRIBED PRN TYLENOL PER ORDER. DENIES FURTHER NEEDS. WILL MONITOR. SIDE RAILS X 2. BED LOW. CALL LIGHT IN REACH.
[2017-03-17] VITALS (7 sets, daily range): BP systolic 113–144; BP diastolic 52–59
[2017-03-17 06:36] LABS: EOSINOPHILS 5.6 % (0-7); HEMATOCRIT 34.4 % (36.0-48.0); HEMOGLOBIN 10.1 g/dL (12-16); IMMATURE GRANULOCYTES 0.3 % (0-5); LYMPHOCYTES 28.9 % (15-50); MCH 29.5 pg (26.0-34.0); MCHC 29.4 g/dL (31.0-37.0); MCV 100.6 fL (80.0-100.0); MEAN PLATELET VOLUME 8.9 fL (7.4-10.4); MONOCYTES 9.2 % (2-11); PLATELET COUNT 228 10x3/uL (130-400); RBC 3.42 10x6/uL (4.00-5.40); RDW 15.4 % (11.5-14.5); WBC 3.1 10x3/uL (4.8-10.8)
[2017-03-17 07:00] LABS: ALBUMIN 2.3 g/dL (3.4-5.0); BILIRUBIN - TOTAL 0.25 mg/dL (0.2-1.3); CALCIUM 8.6 mg/dL (8.5-10.1); CREATININE - SERUM 1.1 mg/dL (0.6-1.3); POTASSIUM - SERUM 4.5 mmol/L (3.5-5.1); PROTEIN - SERUM 6.8 g/dL (6.4-8.2)
[2017-03-17 07:14] LABS: ANION GAP 0.4 mmol/L (8-16)
[2017-03-17 07:16] LABS: CARBON DIOXIDE 45.1 mmol/L (21.0-32.0)
--- NOTE | 2017-03-17 19:50 | NUR ---
AWAKE, ALERT AND ORIENTED X'S 4. 2L/MIN NASAL CANNULA ON. AT BEDSIDE.
[2017-03-18 04:00] VITALS: BP 114/45
--- NOTE | 2017-03-18 05:15 | NUR ---
DOLAN CARE COMPLETED USING DOLAN CARE WIPES
--- NOTE | 2017-03-18 07:30 | NUR ---
RECIEVED PT DURING WALKING ROUNDS, PT RESTING IN BED WITH NO COMPLAINTS OF PAIN OR DISCOMFORT AT THIS TIME. ASSESSMENT DONE PER FLOWSHEET. BED IN LOW POSITION AND CALL LIGHT WITHIN REACH. WILL CONTINUE TO MONITOR.
[2017-03-18] MEDS ORDERED: IPRAT-ALBUT 0.5-3 ML UPD (09:35)
[2017-03-18] MEDS ORDERED: LOVENOX40 MG/0.4 SC (09:36)
[2017-03-18] MEDS ORDERED: BUMEX 1 MG/1 MG/4 ML IV (09:37)
[2017-03-18] MEDS ORDERED: FLORAJEN3 CAPS460 MG PO (09:38)
[2017-03-18] MEDS ORDERED: BENZONATATE200 MG PO (09:38)
[2017-03-18] MEDS ORDERED: MUCINEX DM ER1 EAC1 PO (09:38)
[2017-03-18] MEDS ORDERED: MIRALAX17 GM PO (09:39)
[2017-03-18] MEDS ORDERED: LEVEMIR100 U/M1 SC (09:40)
[2017-03-18] MEDS ORDERED: HUMULIN R100 U/ML SC (09:40)
--- NOTE | 2017-03-18 09:45 | NUR ---
Rehab Note- Acute Rehab Prescreen order received. Spoke with the patient and is interested in acute rehab stay prior to discharge home. Can accept patient when ready for discharge from the acute hospital. Thank you for this referral! Chantel Medrano RN Clinical Liaison, [facility]
[2017-03-18 10:19] VITALS: BP 102/44
--- NOTE | 2017-03-18 10:30 | NUR ---
PATIENT IS BEING DISCHARGED TO INPAITENT REHAB TO ROOM 111B TODAY
--- NOTE | 2017-03-18 12:37 | NUR ---
REPORT CALLED TO REHAB AT THIS TIME. WILL TRANSFER PT.
--- NOTE | 2017-03-18 13:15 | NUR ---
D/C TEACHING PROVIDED TO PATIENT AND FAMILY AT BEDSIDE. STATES UNDERSTANDING. DENIES QUESTIONS.
[2017-03-18 13:28] VITALS: BP 131/53
[2017-03-22 09:09] LABS: FUNGUS MYCOLOGY CULTURE Preliminary report (())
== END 2017-03-18 13:39 | DRG 177 ==
LOC: D.WS 12:56 → D.MS 12:56
PROVIDERS: Family Medicine; Internal Medicine Pulmonary Disease; Specialist; ADMIT Legal Medicine
PROC: 0W9B3ZZ Drainage of Left Pleural Cavity, Percutaneous Approach (ICD-10-PCS; principal; 2017-03-12 11:30)
DX: J69.0 Pneumonitis due to inhalation of food and vomit (principal); I50.31 Acute diastolic (congestive) heart failure; J98.11 Atelectasis; J90 Pleural effusion, not elsewhere classified; E87.3 Alkalosis; J18.9 Pneumonia, unspecified organism; R91.1 Solitary pulmonary nodule; I69.320 Aphasia following cerebral infarction; I08.3 Combined rheumatic disorders of mitral, aortic and tricuspid valves; E87.5 Hyperkalemia; Z85.3 Personal history of malignant neoplasm of breast; E11.649 Type 2 diabetes mellitus with hypoglycemia without coma; Z79.4 Long term (current) use of insulin; E11.43 Type 2 diabetes mellitus with diabetic autonomic (poly)neuropathy; K31.84 Gastroparesis; E11.40 Type 2 diabetes mellitus with diabetic neuropathy, unspecified

== ENCOUNTER 2017-03-18 13:54 | Inpatient (IN) | payer MEDICARE ==
[~2017-03-18] VITALS: Ht 152.4 cm; Wt 65.5 kg
[~2017-03-18 13:54] MED LIST changes: +BENZONATATE200 MG PO; +BUMEX 1 MG/1 MG/4 ML IV; +FLORAJEN3 CAPS460 MG PO; +HUMULIN R100 U/ML SC; +IPRAT-ALBUT 0.5-3 ML UPD; +LEVEMIR100 U/M1 SC; +LOVENOX40 MG/0.4 SC; +MIRALAX17 GM PO; +MUCINEX DM ER1 EAC1 PO
[2017-03-18 14:03] VITALS: BP 125/62; BMI 31.3
--- NOTE | 2017-03-18 15:00 | NUR ---
ADMIT TO UNIT FROM ACUTE CARE VIA W/C. CAN STAND WITH MIN TO MOD ASST AND TRANSFER.. NO SKIN BREAKDOWN NOTED TO KATE OR BUTTOCKS AREA. DENIES PAIN OR INCREASED SOB. HAS OXYGEN AT 2LNC IN PLACE. DENIES COUGH. 2+ EDEMA NOTED TO BLE. PEDAL PULSES PRESENT X2. SHE C/O NUMBNESS AND TINGLING TO BLE AT TIMES. SHE DECLINED COVERS. F/C PATENT AND DRAINING CLOUDY URINE. HAS TROUBLE FINDING THE WORD SHE WANTS TO SAY AT TIMES. 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 EQUAL CLOTHING ROOM SUPERVISOR AND EQUAL FEET PUSH AND PULL NOTED.
--- NOTE | 2017-03-18 19:20 | NUR ---
IN BED, AWAKE. PRESENT AT BEDSIDE.
--- NOTE | 2017-03-18 21:05 | NUR ---
REMAINS IN BED, AWAKE. DENIES CURRENT NEEDS.
[2017-03-18 22:20] VITALS: BP 143/72
--- NOTE | 2017-03-18 22:20 | NUR ---
ASSESSMENT AND HS MEDS COMPLETE. FSBS 217. GAVE PATIENT REGULAR SLIDING SCALE INSULIN, 8 UNITS, SC IN RIGHT UPPER ARM. DENIES CURRENT NEEDS.
--- NOTE | 2017-03-19 00:15 | NUR ---
PATIENT AWAKE. HAD ME READJUST THE TEMP SETTING ON HER A/C. INCREASED TEMP 5 DEGREES TO 75 AND TURNED FAN TO AUTO SETTING.
--- NOTE | 2017-03-19 02:15 | NUR ---
PATIENT RESTING QUIETLY IN BED, EYES CLOSED.
--- NOTE | 2017-03-19 05:45 | NUR ---
GAVE PATIENT SCHEDULED MEDS. STANDING WEIGHT 159 LBS 0 OZS. DENIES CURRENT NEEDS.
--- NOTE | 2017-03-19 06:00 | NUR ---
GAVE PATIENT SCHEDULED MEDS. ALSO GAVE HER PERCOCET 10/325 X1 TAB PO FOR PAIN LEVEL OF 7/10 IN HER BACK AND RIGHT LEG.
[2017-03-19 06:21] LABS: ANION GAP 5.1 mmol/L (8-16); CALCIUM 8.6 mg/dL (8.5-10.1); CARBON DIOXIDE 37.4 mmol/L (21.0-32.0); CREATININE - SERUM 1.1 mg/dL (0.6-1.3); POTASSIUM - SERUM 4.5 mmol/L (3.5-5.1)
[2017-03-19 06:29] LABS: HEMATOCRIT 31.9 % (36.0-48.0); HEMOGLOBIN 9.7 g/dL (12-16); LYMPHOCYTES 21.5 % (15-50); MCH 29.6 pg (26.0-34.0); MCHC 30.4 g/dL (31.0-37.0); MEAN PLATELET VOLUME 8.8 fL (7.4-10.4); NEUTROPHILS 65.3 % (40-80); PLATELET COUNT 257 10x3/uL (130-400); RBC 3.28 10x6/uL (4.00-5.40); RDW 14.3 % (11.5-14.5)
[2017-03-19 06:32] LABS: MCV 97.3 fL (80.0-100.0); WBC 4.5 10x3/uL (4.8-10.8)
--- NOTE | 2017-03-19 08:03 | NUR ---
ALERT/OREINT. CALL LIGHT WITHIN REACH. VOICES NO NEEDS AT THIS TIME. SITTING UP IN BED TO EAT BREAKFAST.
--- NOTE | 2017-03-19 08:12 | NUR ---
SITTING UP EATING BREAKFAST. DENIES NEEDS. CALL LIGHT IN REACH
[2017-03-19 09:03] VITALS: BP 125/56
--- NOTE | 2017-03-19 11:00 | NUR ---
DRESSING CHANGED TO LEFT LOWER BACK. INCISION FROM LYMPHOMA BIOPSY. NO DRAINAGE. HEALING WELL. OCCUPATIONAL THERAPIST IN ROOM. PATIENT TAKING A SPONGE BATH AT SINK.
--- NOTE | 2017-03-19 11:55 | NUR ---
GLUCOSE LEVEL 174. FOUR UNITS OF REGULAR SLIDING SCALE GIVEN
[2017-03-19 14:08] VITALS: Ht 152.4 cm; Wt 65.5 kg
--- NOTE | 2017-03-19 19:20 | NUR ---
IN BED, AWAKE. AT BEDSIDE.
--- NOTE | 2017-03-19 20:10 | NUR ---
REMAINS AWAKE IN BED. DENIES CURRENT NEEDS.
[2017-03-19 20:27] VITALS: BP 153/56
--- NOTE | 2017-03-19 22:45 | NUR ---
ASSESSMENT AND HS MEDS COMPLETE. C/O PAIN LEVEL OF 7/10 IN HER BACK. GAVE HER NORCO 5/325 X1 TAB PO.
--- NOTE | 2017-03-20 02:15 | NUR ---
REMAINS IN BED, EYES CLOSED. NO DISTRESS NOTED.
--- NOTE | 2017-03-20 04:45 | NUR ---
PATIENT AWAKE. EMPTIED 1350 ML FROM DOLAN DRAINAGE BAG.
--- NOTE | 2017-03-20 06:45 | NUR ---
GAVE PATIENT SCHEDULE MEDS. DENIES CURRENT NEEDS.
--- NOTE | 2017-03-20 07:30 | NUR ---
PATIENT IS ALERT/ORIENT X4. CALL LIGHT WITHIN REACH. VOICES NO NEEDS AT THIS TIME. OXYGEN ON AT 2L PER N/C.
[2017-03-20 08:00] VITALS: BP 123/60
--- NOTE | 2017-03-20 10:41 | NUR ---
ACTIVE WITH THERAPY AT PRESENT IN HALLWAY AMBULATING WITH THERAPY.
--- NOTE | 2017-03-20 10:45 | NUR ---
PATIENT IN REHAB ROOM. WORKING WITH OCCUPATIONAL THERAPIST. DENIES ANY PAIN/DISC AT THIS TIME
--- NOTE | 2017-03-20 11:54 | NUR ---
GLUCOSE LEVEL 167. FOUR UNITS OF SLIDING SCALE INSULIN GIVEN PER ORDER.
--- NOTE | 2017-03-20 15:41 | NUR ---
OCCUPATIONAL THERAPIST WORKING WITH PATIENT IN ROOM. HELPING PATIENT WITH SHOWER.
--- NOTE | 2017-03-20 17:00 | NUR ---
GLUCOSE LEVEL 127. NO SLIDING SCALE INSULIN GIVEN
--- NOTE | 2017-03-20 19:49 | NUR ---
PT. IN BED WITH HOB UP FOR COMFORT AND IS WATCHING TV. NO VOICED NEEDS. DOLAN TO BSD WITHOUT PROBLEMS. CALL LIGHT WITHIN REACH.
--- NOTE | 2017-03-20 21:32 | NUR ---
PT IS LYING IN BED STATED ROOM IS STUFFY, CONVINCED PT TO ALLOW ME TO TURN AIR ON FOR A BIT. REMOVED PT'S SHEETS AND GAVE PT COLD CUP OF WATER. BED IN LOW POSITION, WILL CONTINUE TO MONITOR
--- NOTE | 2017-03-21 01:38 | NUR ---
PT IS LYING IN BED WITH EYES CLOSED, NO SIGNS OF DISTRESS. PT STILL HAD GLASSES ON, OFFERED TO REMOVE AND PT GOT POSSESSIVE AND WANTED HER THINGS HERE.REORIENTED PT BACK TO HOSPITAL AND DAY. WILL CONTINUE TO MONITOR
--- NOTE | 2017-03-21 08:12 | NUR ---
SITTING UP IN BED EATING BREAKFAST.CL IN REACH.
[2017-03-21 08:31] VITALS: BP 125/54
--- NOTE | 2017-03-21 08:48 | NUR ---
PT RESTING IN BED WITH EYES OPEN CALL LIGHT IN REACH NO PROBLEMS WILL MONITER
--- NOTE | 2017-03-21 14:54 | NUR ---
PT RESTING IN BED WITH EYES OPEN CALL LIGHT IN REACH NO PROBLEMS WILL MONITER
--- NOTE | 2017-03-21 19:35 | NUR ---
PT. IN BED WITH HOB UP FOR COMFORT AND IS WATCHING TV. SPOUSE SITTING IN CHAIR NEXT TO HER. ASSESSMENT COMPLETED. PT. REQUESTING PAIN MED BUT INFORMED HER IT'S NOT DUE UNTIL 0. PT. STATED, "OK". DOLAN TO BSD WITHOUT PROBLEMS. CALL LIGHT WITHIN REACH.
--- NOTE | 2017-03-21 19:35 | NUR ---
PT. IN BED WITH HOB UP FOR COMFORT AND IS WATCHING TV. ASSESSMENT COMPLETED. DOLAN TO D WITHOUT PROBLEMS. PT'S CALL LIGHT WITHIN REACH.
[2017-03-21 19:50] VITALS: BP 130/58
--- NOTE | 2017-03-21 22:50 | NUR ---
PT. HAS HAD ANOTHER INCONTINENT BM. STOOL MUSHY BUT NOT DIARRHEA. PT. CLEANED BY Yue SAMUEL LPN AND THEN POSITIONED TO COMFORT WITH CALL LIGHT WITHIN REACH AND DOLAN TO BSD.
--- NOTE | 2017-03-21 23:10 | NUR ---
PT. IN BED WITH HOB UP FOR COMFORT AND HAS HER CALL LIGHT WITHIN REACH.
--- NOTE | 2017-03-22 03:07 | NUR ---
PT. IN BED WITH HOB UP FOR COMFORT WITH EYES CLOSED AND RESP. EVEN. DOLAN TO BSD WITHOUT ANY PROBLEMS. CALL LIGHT WITHIN REACH.
--- NOTE | 2017-03-22 05:12 | NUR ---
ATTEMPTED TO OBTAIN A.M. WEIGHT AND PT. WAS UNABLE TO SAFELY STAND ON THE SCALES SHE WAS TOO UNSTEADY, EVEN WITH 2 NURSES HELPING HER.
[2017-03-22 06:04] LABS: BASOPHILS 0.5 % (0-2); EOSINOPHILS 4.5 % (0-7); HEMATOCRIT 32.9 % (36.0-48.0); LYMPHOCYTES 33.8 % (15-50); MCH 29.5 pg (26.0-34.0); MCHC 30.4 g/dL (31.0-37.0); MCV 97.1 fL (80.0-100.0); MONOCYTES 9.5 % (2-11); NEUTROPHILS 51.7 % (40-80); PLATELET COUNT 305 10x3/uL (130-400); RBC 3.39 10x6/uL (4.00-5.40); RDW 14.5 % (11.5-14.5)
[2017-03-22 06:23] LABS: ANION GAP 7.9 mmol/L (8-16); CALCIUM 8.8 mg/dL (8.5-10.1); CARBON DIOXIDE 35.9 mmol/L (21.0-32.0); CREATININE - SERUM 1.3 mg/dL (0.6-1.3); POTASSIUM - SERUM 4.8 mmol/L (3.5-5.1)
--- NOTE | 2017-03-22 07:18 | NUR ---
RESTING QUIETLY IN BED. NO S/S DISTRESS. CALL LIGHT IN REACH
--- NOTE | 2017-03-22 08:47 | NUR ---
PT RESTING IN BED WITH EYES OPEN CALL LIGHT IN REACH WILL MONITER
[2017-03-22 09:00] VITALS: BP 120/53
--- NOTE | 2017-03-22 14:16 | NUR ---
PT RESTING IN BED WITH EYES OPEN CALL LIGHT IN REACH WILL MONITER
--- NOTE | 2017-03-22 19:00 | NUR ---
DAY SHIFT NURSE CLEANING PATIENT UP AFTER LOOSE INCONTINENT BM.
[2017-03-22 21:05] VITALS: BP 134/59
--- NOTE | 2017-03-22 21:05 | NUR ---
ASSESSMENT AND HS MEDS COMPLETE. DOLAN CATH REMAINS PATENT TO BSD BAG WITH LIGHT YELLOW URINE. C/O PAIN LEVEL OF 7/10 IN HER BACK AND SHOULDERS. GAVE PATIENT NORCO 5/325 X1 TAB PO WITH HS MEDS.
--- NOTE | 2017-03-23 00:05 | NUR ---
IN BED, EYES CLOSED. NO DISTRESS EVIDENT.
--- NOTE | 2017-03-23 02:15 | NUR ---
IN BED, EYES CLOSED. APPEARS COMFORTABLE.
--- NOTE | 2017-03-23 04:30 | NUR ---
PATIENT AWAKE. C/O BACK PAIN OF LEVEL 8/10. GAVE HER NORCO 5/325 X1 TAB PO. EMPTIED 1700ML YELLOW URINE FROM BEDSIDE URINAL.
--- NOTE | 2017-03-23 06:00 | NUR ---
GAVE PATIENT SCHEDULED MEDS. STANDING WEIGHT 156 LBS 8 OZS. ASSISTED HER TO PUT ON PULL-UP BRIEF AND FRESH SCRUBS FOR THERAPY.
[2017-03-23 07:00] VITALS: BP 121/47
--- NOTE | 2017-03-23 07:40 | NUR ---
LYING IN BED RESTING COMFORTABLY. EASILY AROUSED WITH STIMULI. DOLAN PATENT FREE OF KINKS. CALL LIGHT IN REACH. WILL CONTINUE TO MONITOR
--- NOTE | 2017-03-23 08:00 | NUR ---
D/C RIGHT WRIST SL IV CATH TIP INTACT. 2X2 PRESSURE DRESSING INTACT. CALL LIGHT IN REACH. WILL CONTINUE TO MONITOR
--- NOTE | 2017-03-23 11:06 | NUR ---
IN BED RESTING COMFORTABLY. C/O HAVING CONSTANT DIARRHEA AND WOULD LIKE SOMETHING FOR IT. OFFERS NO OTHER COMPLAINTS. CALL LIGHT IN REACH
--- NOTE | 2017-03-23 18:14 | NUR ---
SITTING UP IN WHEELCHAIR EATING DINNER. OFFERS NO COMPLAINTS. CONTINUES ON 2L OF O2. CALL LIGHT IN REACH
[2017-03-23 22:13] VITALS: BP 144/54
--- NOTE | 2017-03-24 00:17 | NUR ---
FAMILY MEMBER TALK TO PT AT BEDSIDE.
--- NOTE | 2017-03-24 01:56 | NUR ---
RESTING IN BED WITH EYES OPEN AND TV ON. PLEASANT AND COOPERARTIVE. O2@2 LITERS PER N/C IN PLACE. RESPIRATIONS EVEN AND UNLABORED. CALL LIGHT IN REACH.
--- NOTE | 2017-03-24 03:21 | NUR ---
PT REST QUIETLY IN BED, CALL LIGHT IN REACH.
[2017-03-24 06:45] LABS: BASOPHILS 0.2 % (0-2); EOSINOPHILS 4.2 % (0-7); HEMATOCRIT 31.1 % (36.0-48.0); HEMOGLOBIN 9.8 g/dL (12-16); LYMPHOCYTES 22.2 % (15-50); MCHC 31.5 g/dL (31.0-37.0); MCV 95.1 fL (80.0-100.0); MONOCYTES 12.3 % (2-11); NEUTROPHILS 61.1 % (40-80); PLATELET COUNT 294 10x3/uL (130-400); RBC 3.27 10x6/uL (4.00-5.40); RDW 14.4 % (11.5-14.5); WBC 4.1 10x3/uL (4.8-10.8)
[2017-03-24 06:51] LABS: ANION GAP 7.1 mmol/L (8-16); CALCIUM 8.8 mg/dL (8.5-10.1); CARBON DIOXIDE 36.3 mmol/L (21.0-32.0); CREATININE - SERUM 0.9 mg/dL (0.6-1.3); POTASSIUM - SERUM 4.4 mmol/L (3.5-5.1)
--- NOTE | 2017-03-24 08:00 | NUR ---
IN BED.DENIES NEEDS.CL IN REACH.
[2017-03-24 08:01] VITALS: BP 125/51
--- NOTE | 2017-03-24 10:00 | NUR ---
PATIENT IN REHAB ROOM. WORKING WITH PHYSICAL THERAPIST. DENIES ANY PAIN/DISC AT THIS TIME.
--- NOTE | 2017-03-24 10:24 | NUR ---
Nutrition Follow Up: Pt was in therapy at the time of RD visit. Interview deferred. Pt is eating 75% meal avg on a diabetic diet. Wt loss 5# since admit. +BM x 6 03/23/17. Labs reviewed - Na low. Meds noted including Bumex. Rec continue current diet. RD following.
--- NOTE | 2017-03-24 11:55 | NUR ---
GLUCOSE LEVEL 140. NO SLIDING SCALE INSULIN GIVEN.
--- NOTE | 2017-03-24 17:00 | NUR ---
GLUCOSE LEVEL 170. FOUR UNITS OF SLIDING SCALE REG INSULIN GIVEN
--- NOTE | 2017-03-24 19:35 | NUR ---
PT. IN BED WITH HOB UP FOR COMFORT WITH EYES CLOSED. PT. AWAKENS EASILY FOR ASSESSMENT. PT. ASKING FOR PAIN MEDICATION WITH NIGHT TIME MEDS SHE DIDN'T SLEEP AT ALL LAST NIGHT AND HER NECK AND RLE ARE HURTING HER TONIGHT. DOLAN TO BSD WITHOUT ANY PROBLEMS. CALL LIGHT WITHIN REACH.
[2017-03-24 19:50] VITALS: BP 152/71
--- NOTE | 2017-03-24 23:01 | NUR ---
PT. IN BED WITH HOB UP FOR COMFORT AND IS STILL AWAKE AND WATCHING TV. PT. REQUESTED VOLUMN IN NEIGHBORS ROOM BE TURNED DOWN IT WAS TOO LOUD FOR HER. TURNED DOWN VOLUMN AND PT. SAID THAT WAS MUCH BETTER. DOLAN TO BSD WITHOUT ANY PROBLEMS. CALL LIGHT WITHIN REACH.
--- NOTE | 2017-03-25 03:00 | NUR ---
PT. IN BED WITH HOB UP FOR COMFORT WITH EYES CLOSED AND RESP. EVEN. DOLAN TO BSD WITHOUT PROBLEMS. CALL LIGHT WITHIN REACH.
--- NOTE | 2017-03-25 07:40 | NUR ---
SITTING UP IN BED EATING BREAKFAST. OFFERS NO COMPLAINTS AND DENIES PAIN. NO S.SX OF DISTRESS. CALL LIGHT IN REACH. WILL CONTINUE TO FOLLOW
[2017-03-25 08:00] VITALS: BP 104/45
--- NOTE | 2017-03-25 09:00 | NUR ---
SITTING UP IN BED.DENIES NEEDS.
--- NOTE | 2017-03-25 12:31 | NUR ---
SITTING UP IN W/C EATING LUNCH. AT BEDSIDE. OFFERS NO COMPLAINTS. CALL [facility] IN REACH
--- NOTE | 2017-03-25 14:19 | NUR ---
SITTING UP IN W/C VISITING WITH . CALL LIGHT IN REACH.
--- NOTE | 2017-03-25 17:36 | NUR ---
LYING IN BED RESTING. NO S/SX OF DISTRESS. CALL LIGHT IN REACH. WILL CONTINU TO MONITOR
--- NOTE | 2017-03-25 19:35 | NUR ---
IN BED, AWAKE. DENIES NEEDS AT THIS TIME.
--- NOTE | 2017-03-25 21:40 | NUR ---
IN BED, AWAKE. C/O HEADACHE. TOLD HER I WILL DELIVER HER MEDICATIONS WHEN I HAVE FINISHED WITH MY CURRENT PATIENT.
[2017-03-25 22:20] VITALS: BP 137/60
--- NOTE | 2017-03-25 22:20 | NUR ---
ASSESSMENT AND HS MEDS COMPLETE. GAVE PATIENT NORCO X1 TAB PO FOR HEADACHE PAIN OF LEVEL 9/10. SAYS IT HAS DECREASED SLIGHTLY SINCE SHE REPORTED IT AT 2139. FSBS 147. REQUIRES NO SLIDING SCALE INSULIN.
--- NOTE | 2017-03-26 | NUR ---
REMAINS IN BED, AWAKE, HAVING JUST FINISHED HER HS SNACK.
--- NOTE | 2017-03-26 01:00 | NUR ---
C/O ROOMMATES SNORING. TOLD HER I CANNOT SEPARATE THEM TONIGHT I DO NOT HAVE ANOTHER FEMALE BED AVAILABLE FOR EITHER OF THEM. AN ASIDE A PRIVATE ROOM WILL BECOME AVAILABLE AFTER ANOTHER PATIENT DISCHARGES. IF THIS REMAINS A PROBLEM, DAY SHIFT WILL MOVE ONE OR THE OTHER.
--- NOTE | 2017-03-26 02:15 | NUR ---
RESTING QUIETLY IN BED, EYES CLOSED.
--- NOTE | 2017-03-26 04:05 | NUR ---
RESTING IN BED, EYES CLOSED. RESPIRATIONS UNLABORED.
--- NOTE | 2017-03-26 05:45 | NUR ---
GAVE PATIENT SCHEDULED PO MEDS. OBTAINED STANDING SCALE WEIGHT. EMPTIED 200ML FROM DOLAN DRAINAGE BAG.
[2017-03-26 06:57] LABS: BASOPHILS 0.5 % (0-2); EOSINOPHILS 4.9 % (0-7); HEMATOCRIT 30.9 % (36.0-48.0); HEMOGLOBIN 9.9 g/dL (12-16); IMMATURE GRANULOCYTES 0.2 % (0-5); LYMPHOCYTES 28.2 % (15-50); MCH 29.8 pg (26.0-34.0); MCV 93.1 fL (80.0-100.0); MEAN PLATELET VOLUME 8.8 fL (7.4-10.4); MONOCYTES 9.2 % (2-11); PLATELET COUNT 295 10x3/uL (130-400); RBC 3.32 10x6/uL (4.00-5.40); RDW 14.3 % (11.5-14.5); WBC 4.1 10x3/uL (4.8-10.8)
[2017-03-26 07:05] LABS: ANION GAP 4.9 mmol/L (8-16); CALCIUM 8.6 mg/dL (8.5-10.1); CARBON DIOXIDE 36.4 mmol/L (21.0-32.0); CREATININE - SERUM 0.9 mg/dL (0.6-1.3); POTASSIUM - SERUM 4.3 mmol/L (3.5-5.1)
--- NOTE | 2017-03-26 07:49 | NUR ---
RESTING QUIETLY IN BED. NO S/S DISTRESS OR NEEDS. CALL LIGHT IN REACH
[2017-03-26 08:12] VITALS: BP 119/52
--- NOTE | 2017-03-26 10:43 | NUR ---
PATIENT ROOM CHANGED TO 1118B. ROOM CHANGED PER PATIENTS REQUEST. PATIENT COULD NOT SLEEP IN SAME ROOM WITH OTHER ROOM MATE DUE TO SNORING. CALLED AND NOTIFED IN REGARDS TO ROOM CHANGE
--- NOTE | 2017-03-26 16:46 | NUR ---
PATIENT ADMITTED TO REHAB FROM ACUTE FLOOR. DR. GILMORE IS PATIENT PCP. [facility] IS HER [facility]ARMACY, DME AT HOME: [facility] AND O2. SHE HAS USED [facility] FOR HOME [facility]. HER PLANS ARE TO RETURN HOME WITH HER FAMILY. WILL CONTINUE TO FOLLOW WITH PATIENT
--- NOTE | 2017-03-26 17:07 | NUR ---
GLUCOSE LEVEL 169. FOUR UNITS OF SLIDING SCALE INSULIN GIVEN
--- NOTE | 2017-03-26 19:20 | NUR ---
UP IN W/C WITH VISITORS AT BEDSIDE. PLEASANT AND SMILEING. NO S/S OF DISTRESSS OBSERVED. CALL LIGHT IN REACH.
[2017-03-26 19:25] VITALS: BP 149/62
[2017-03-27 07:11] VITALS: BP 127/58
--- NOTE | 2017-03-27 07:34 | NUR ---
RESTING QUIETLY IN BED. NO S/S DISTRESS NOTED. CALL LIGHT IN REACH
--- NOTE | 2017-03-27 12:07 | NUR ---
SITTING UP IN BED EATING LUNCH. FAMILY VISITING. DENIES NEEDS
--- NOTE | 2017-03-27 19:33 | NUR ---
RESIEVED LYING IN BED WITH EYES OPEN AND TV ON, PLEAASANT AND TALKATIVE.HOB ELEVATED AND O2@2 LITERS PER N/C IN PLACE. DOLAN CATHETER PATENT WITH CLEAR YELLOW URINE DRAINING TI BEDSIDE DRAINAGE SYSTEM, DENIES ANY PAIN AT THIS TIME. CALL LIGHT IN REACH.
[2017-03-27 20:00] VITALS: BP 146/62
--- NOTE | 2017-03-27 21:10 | NUR ---
LYING IN BED WITH EYES OPEN AND TV ON. PLEASANT AND COOPERATIVE. DENIES ANY PAIN OR DISCOMFORT. HOB ELEVATED AND O2@2 LITERS PER N/C. RESPIRATIONS EVEN AND UNLABORED WITH 02 SAT 98%. CALL LIGHT AND OVERBED TABLE IN REACH.
--- NOTE | 2017-03-28 04:39 | NUR ---
RESTING IN BED WITH EYES CLOSED. NO S/S OF DISTRESS OBSERVED.
[2017-03-28 16:52] VITALS: BP 125/56
--- NOTE | 2017-03-28 19:17 | NUR ---
RECIEVED UP IN BED WITH HOB ELEVATED. EYES OPEN AND TV ON. ASSISTED TO TOILET. REQUIRES SUPERVISION ONLY. PLEASANT AND TALKATIVE. DENIES ANY PAIN. REQUESTED BEDSIDE COMMODE FOR HS D/T FREQUENT URINATION AT NIGHT. CONCERNED ABOUT NOT GETTING ANY SLEEP. CALL LIGHT AND OVERBED TABLE IN REACH. BEDSIDE COMMODE TO BE TAKEN TO HER ROOM.
[2017-03-28 19:20] VITALS: BP 139/55
--- NOTE | 2017-03-28 21:00 | NUR ---
LYING IN BED WITH EYES OPEN AND TV ON. PLEASANT AND COOPERATIVE. VOICES NEEDS. DENIES ANY PAIN AT THIS TIME. CALL LIGHT AND OVERBED TABLE IN REACH.
[2017-03-29 05:23] LABS: BASOPHILS 0.4 % (0-2); EOSINOPHILS 4.8 % (0-7); HEMATOCRIT 32.4 % (36.0-48.0); HEMOGLOBIN 10.2 g/dL (12-16); IMMATURE GRANULOCYTES 0.2 % (0-5); MCH 29.7 pg (26.0-34.0); MCHC 31.5 g/dL (31.0-37.0); MCV 94.2 fL (80.0-100.0); MEAN PLATELET VOLUME 8.7 fL (7.4-10.4); MONOCYTES 11.1 % (2-11); NEUTROPHILS 54.5 % (40-80); PLATELET COUNT 317 10x3/uL (130-400); RBC 3.44 10x6/uL (4.00-5.40); RDW 14.5 % (11.5-14.5); WBC 4.6 10x3/uL (4.8-10.8)
[2017-03-29 05:33] LABS: CALC OSMOLALITY 275 mosm/kg (275-300); CARBON DIOXIDE 37.6 mmol/L (21.0-32.0); CHLORIDE - SERUM 94 mmol/L (98-107); CREATININE - SERUM 0.8 mg/dL (0.6-1.3); GLUCOSE 92 mg/dL (74-106); POTASSIUM - SERUM 4.2 mmol/L (3.5-5.1); SODIUM 134 mmol/L (136-145); UREA NITROGEN 36 mg/dL (7-18); eGFR NON AFRICAN AMERICAN 76 mL/min (90-120)
--- NOTE | 2017-03-29 06:31 | NUR ---
ASSISTED TO BED SIDE COMMODE X2 THIS AM. REQUIRES SUPERVISION WITH TRANSFERS. CALL LIGHT AND OVERBED TABLE IN REACH.
[2017-03-29 08:06] VITALS: BP 142/60
--- NOTE | 2017-03-29 08:15 | NUR ---
PT RESTING IN BED WITH EEYS OPEN CALL LIGHT IN REACH WILL MONITER
--- NOTE | 2017-03-29 14:50 | NUR ---
PT RESTING IN BED WITH EYES OPEN CALL LIGHT IN REACH NO PROBLEMS WILL MONITER
--- NOTE | 2017-03-29 18:30 | NUR ---
PT RESTING IN ROOM, DENIES NEEDS. WCTM.
--- NOTE | 2017-03-29 19:23 | NUR ---
LYING IN BED WITH EYES OPEN AND TV ON. ASSISTED TO TOILET WITH STAND BY ASSIST. USES GRAB BAR TO STAND. ASSISTED BACK TO BED. DENIES ANY PAIN. CALL LIGHT IN REACH.
[2017-03-29 20:07] VITALS: BP 151/64
--- NOTE | 2017-03-30 00:08 | NUR ---
RESTING IN BED WITH EYES CLOSED. NO S/S OF DISTRESS OBSERVED. O2@2 LITERS PER N/C IN PLACE. RESPIRARIONS EVEN AND UNLABORED. HOB ELEVATED. CALL LIGHT IN REACH.
--- NOTE | 2017-03-30 02:36 | NUR ---
RESTING IN BED WITH EYES CLOSED. NO S/S OF DISTRESS OBSERVED. O2@ 2 LITERS PER NC. RESP. EVEN AND UNLABORED. WEARS GLASSES WHEN SLEEPING. CALL LIGHT IN REACH.
--- NOTE | 2017-03-30 06:43 | NUR ---
RESTING IN BED WITH EYES OPEN. HOB ELEVATED AND 02@ 2 [address]ERS PER NASAL CANNULA IN PLACE. RESPIRATIONS EVEN AND UNLABORED. ASSISTED TO TOILET EARLIER. REQUIRES STAND BY ASSIST AND USES GRAB BAR TO AIDE IN STANDING.
--- NOTE | 2017-03-30 08:16 | NUR ---
PT RESTING IN BED WITH EYES OPEN CALL LIGHT IN REACH WILL MONITER
[2017-03-30 08:20] VITALS: BP 139/61
--- NOTE | 2017-03-30 12:32 | NUR ---
Nutrition Follow Up: Pt was unavailable at the time of RD visit. Interview deferred. Pt is eating 53% meal avg on a diabetic diet. +BM 03/28/17. Wt loss noted. Labs reviewed. Meds noted including Bumex. Rec continue current diet. RD following.
--- NOTE | 2017-03-30 12:55 | NUR ---
PT UP IN WHEELCHAIR CALL LIGHT IN REACH WILL MONITER
--- NOTE | 2017-03-30 18:30 | NUR ---
PT RESTING IN ROOM, DENIES NEEDS. WCTM.
--- NOTE | 2017-03-30 19:45 | NUR ---
PT IS SITTING ON THE SIDE OF HER BED VISITING WITH HER . ALERT AND ORIENTED X 3. DENIES ACUTE DISCOMFORT AT THIS TIME. VSS. NO SOB NOTED. SR'S ARE UP X 3 WHILE IN BED. CALL LIGHT AND BEDSIDE TABLE ARE WITHIN EASY REACH.
[2017-03-30 20:07] VITALS: BP 141/61
--- NOTE | 2017-03-30 22:09 | NUR ---
PT IS RESTING IN BED WITH EYES OPEN. NO NEEDS VOICED.
--- NOTE | 2017-03-30 23:39 | NUR ---
RESTING IN BED WITH EYES CLOSED.
--- NOTE | 2017-03-31 03:10 | NUR ---
IN BED, EYES CLOSED. RESPIRATIONS ARE QUIET AND UNLABORED.
--- NOTE | 2017-03-31 06:26 | NUR ---
PT RESTING IN BED WITH EYES CLOSED. AWOKE TO VERBAL STIMULI. TOLERATED AM MED WITHOUT DIFFICULTY. FSBS IS 168. PT DECLINED SLIDING SCALE INSULIN. "I DONT NEED IT UNTIL I GET TO 200"
--- NOTE | 2017-03-31 07:30 | NUR ---
RESTING QUIETLY IN BED BED. EYES CLOSED. NO S/S DISTSRESS. CALL LIGHT IN REACH
[2017-03-31 09:07] VITALS: BP 116/50
--- NOTE | 2017-03-31 12:19 | NUR ---
SITTING UP IN BED EATING LUNCH. MOVEMENTS ARE SLOW BUT SHE COMPLETES TASKS. EVEN HER EYE MOVEMENTS ARE SLOW. DENIES PAIN.
--- NOTE | 2017-03-31 16:45 | NUR ---
RECLINING IN BED, EYES CLOSED. NO S/S DISTRESS. IN ROOM WITH PT. SHE IS CONT OF B/B
--- NOTE | 2017-03-31 17:17 | RHP ---
PATIENT: LOPEZ CASAREZ MEDICAL RECORD: [id number] ACCOUNT: [id number] LOCATION:[facility]1118 : 54 ADMISSION DATE: 03/18/17 REHABILITATION HISTORY AND PHYSICAL EXAMINATION POST ADMISSION PHYSICIAN EXAMINATION Post-admission Physical Examination and History and Physical DATE OF ADMISSION TO THE REHAB: 03/18/2017 ADMITTING DIAGNOSES: Acute diastolic congestive heart failure. HISTORY OF PRESENT ILLNESS: The patient is a 66-year-old female patient admitted to inpatient rehab with acute diastolic heart failure. She presents to the clinic on March 10 with increase in leg and abdominal swelling. She had been taking Lasix and Bumex without any benefit. She has a history of diabetes, hypertension, neuropathy, breast cancer, hyperlipidemia, anemia, depression, CVA in the past, low-grade lymphoma. She has got a history also of shortness of breath, abdominal pain, and increased edema in her extremities. Echocardiogram showed a moderate mitral regurg with moderate aortic stenosis. On exam, she was fatigued and weak, experiencing increased shortness of breath, dyspnea on activity. She has been sleeping on 3 pillows. She is affected adversely by hot and humid weather. She was unable to do her daily activity. She had increasing abdominal swelling and leg swelling. Previously, she lives with her spouse, but moderately independent with a rolling walker and mobility for ADL. She uses O2 at 2 liters p.r.n. only. Currently, she is moderate to max assist for ADLs and mobility and is continuously on O2. She wants to be able to regain her strength and return home with her and her prior level of functioning. COMORBIDITIES: In this patient include pneumonia, volume overload, history of low-grade lymphoma, anasarca, ascites, elevated BNP, hypertension, hyperlipidemia, moderate aortic stenosis, chronic diabetic gastroparesis, diabetes, dependent edema, leukopenia, hypoglycemia, metabolic alkalosis and physical deconditioning. PAST MEDICAL HISTORY: Significant for CVA, weakness, diabetes, adrenal problems, hypertension, breast cancer and expressive aphasia. PAST SURGICAL HISTORY: Includes lymph nodes removed from her right arm and a mastectomy. ALLERGIES: No known drug allergies. CURRENT MEDICATIONS: Include [place] 5/325 one tab q.6 hours p.r.n., Protonix 40 mg daily, lisinopril 2.5 mg daily, Floranex 460 mg daily, Levemir 20 units daily, Lovenox 40 mg subQ daily. She is on Mucinex D one tab b.i.d., Reglan 10 mg t.i.d., DuoNeb updrafts as needed. She is on an intermediate resistant sliding scale with insulin, Neurontin 600 mg t.i.d., Bumex 1 mg IV q.12 hours, Tessalon Perles 200 mg t.i.d., and MiraLax 17 grams in 8 ounces of water daily. HABITS: No current alcohol or tobacco use. FAMILY HISTORY: Noncontributory. SOCIAL HISTORY: The patient hopes to return back home and get back to her prior HISTORY AND PHYSICAL [id number] LOPEZ CASAREZ level of functioning. REVIEW OF SYSTEMS: GENERAL: Does complain of weakness and fatigue. HEENT: She denies cold, cough, or congestion. CARDIOVASCULAR: Denies chest pain. LUNGS: Does complain of shortness of breath. PHYSICAL EXAMINATION: VITAL SIGNS: Stable, afebrile. GENERAL: An elderly female, in no acute distress, alert upon exam. HEENT: Normocephalic and atraumatic. Mucosa moist. NECK: Supple, with no lymphadenopathy. LUNGS: Clear in upper [place], although she does have decreased breath sounds in the bases. ABDOMEN: Soft, benign and nontender, nondistended. EXTREMITIES: Does have peripheral edema. NEUROLOGIC: Intact. LABORATORY DATA: Her white count is 4.5, H&H of 9.7 and 31.9, and platelet count is 257. Sodium 132, potassium is 4.5, BUN and creatinine of 15 and 1.1 and blood sugar was noted to be 181. ASSESSMENT: This is a 66-year-old female patient admitted to rehab with a working diagnosis of acute diastolic congestive heart failure. The patient has potential to make improvement. We instituted the following multidisciplinary therapies including to, but not limited to physical, occupational, respiratory, speech, nutritional services, prosthetics and orthotics. Given her complex condition and risk for more complications, rehabilitation services cannot be provided at a low level of care such as a fci facility. PLAN: 1. Admit to [facility] rehab for intensive inpatient therapy to include the following disciplines: A. Physical therapy to improve gait, all transfer skills and bed mobility to a modified independent level. B. Occupational therapy to improve activities of daily living to a modified independent level. C. Case management to assist with discharge planning and placement options. D. Nutrition to assist with nutritional needs. E. Rehabilitation nursing to assist in monitoring the patient's underlying medical conditions and to assist with any type of bowel or bladder management. 2. The patient's current medications and medical care will be continued. 3. The patient will be placed on standard fall precautions. 4. The patient's estimated length of stay is approximately 7-10 days. 5. Discuss this patient during care team staff meeting this week. TRANSINT:[id number] Voice Confirmation ID: [id number] DOCUMENT ID: [id number] JAZZ notes whether there has been none or any medical/functional change since admission: - HISTORY AND PHYSICAL [id number] LOPEZ CASAREZ attests patient continues to be appropriate for IRF: - CYNTHIA CASTANON MD at 1717 CC: [id number] DICTATION DATE: 03/19/1738 GEOTECHNICIAN: 03/19/17 0909 ADM IN [place] [id number] [place] [id number]
[2017-03-31 19:45] VITALS: BP 138/58
--- NOTE | 2017-03-31 19:49 | NUR ---
PT IS RESTING IN BED WITH EYES OPEN. ALERT AND ORIENTED X 3. DENIES PAIN OR DISCOMFORT AT THIS TIME. VSS. O2 IS ON @ 2LPM PER NC. NO SOB NOTED. SPOUSE IS AT BEDSIDE. SR'S ARE UP X 2 IN BED. CALL LIGHT AND BEDSIDE TABLE ARE WITHIN EASY REACH.
--- NOTE | 2017-03-31 22:29 | NUR ---
PT RESTING IN BED WITH EYES CLOSED.
--- NOTE | 2017-04-01 00:27 | NUR ---
PT RESTING IN BED WITH EYES CLOSED. NO ACUTE DISTRESS NOTED.
--- NOTE | 2017-04-01 02:40 | NUR ---
IN BED, EYES CLOSED. AUDIBLE RESPIRATIONS ARE UNLABORED.
--- NOTE | 2017-04-01 06:19 | NUR ---
PT RESTING IN BED WITH EYES CLOSED. AWOKE EASILY TO VERBAL STIMULI. TOLERATED AM MED WITHOUT DIFFICULTY. REFUSED FSBS.
--- NOTE | 2017-04-01 08:12 | NUR ---
EATING BREAKFAST IN ROOM. CALL LIGHT IN REACH. DENIES NEEDS.
[2017-04-01 08:50] VITALS: BP 124/51
--- NOTE | 2017-04-01 09:25 | NUR ---
PATIENT DISCHARGING HOME TODAY WITH FAMILY. [facility] WILL FOLLOW WITH [facility]IENT AT HOME FOR THERAPY. NO NEW DME NEEDED AT THIS TIME. DR. GILMORE 04/06/17 @ 11:30, DR. SHARP 06/29/17 @ 3:20, DR. PAULA 04/20/17 @ 11:30. PATIENT CHOICE FORM FOR HOME HEALTH AND [facility] FORM SIGNED, EXPLAINED AND FILED IN CHART.
[2017-04-01] MEDS ORDERED: BUMEX 1 MG TAB1 MG PO (09:50)
--- NOTE | 2017-04-01 10:44 | NUR ---
DISCHARGE INSTRUCTIONS FAXED TO [facility] AT DR. ROBLERO OFFICE WITH CONFORMATION RECIEVED
--- NOTE | 2017-04-01 14:18 | NUR ---
DC HOME WITH ALL PERSONAL BELONGINGS. REVIEWED DC INSTRUCTIONS WITH PT AND . THEY DENY NEEDS OR QUESTIONS. LEFT FLOOR IN WC
== END 2017-04-01 13:45 | disposition home health service (06) | DRG 291 ==
LOC: D.REHAB 13:54
PROVIDERS: ADMIT Emergency Medicine
DX: I50.31 Acute diastolic (congestive) heart failure (principal); J18.9 Pneumonia, unspecified organism; R18.8 Other ascites; E87.3 Alkalosis; J90 Pleural effusion, not elsewhere classified; R60.1 Generalized edema; I10 Essential (primary) hypertension; E78.5 Hyperlipidemia, unspecified; I35.0 Nonrheumatic aortic (valve) stenosis; E11.43 Type 2 diabetes mellitus with diabetic autonomic (poly)neuropathy; K31.84 Gastroparesis; D72.819 Decreased white blood cell count, unspecified; E11.649 Type 2 diabetes mellitus with hypoglycemia without coma; R53.1 Weakness

== ENCOUNTER 2017-06-03 16:31 | Inpatient (IN) | payer MEDICARE ==
[~2017-06-03] VITALS: Ht 152.4 cm
[~2017-06-03 16:31] MED LIST changes: +BUMEX 1 MG TAB1 MG PO; +HUMALOG 30100 UNITS/ SC
[2017-06-03] MEDS ORDERED: ERYTHROCIN STE250 MG PO (16:34)
[2017-06-03] MEDS ORDERED: MIRALAX17 GM PO (16:35)
[2017-06-03 21:16] VITALS: BP 144/40
[2017-06-04 06:08] LABS: BASOPHILS 0.5 % (0-2); EOSINOPHILS 6.5 % (0-7); HEMATOCRIT 27.5 % (36.0-48.0); HEMOGLOBIN 8.4 g/dL (12-16); LYMPHOCYTES 31.3 % (15-50); MCH 31.2 pg (26.0-34.0); MCHC 30.5 g/dL (31.0-37.0); MONOCYTES 8.3 % (2-11); NEUTROPHILS 53.4 % (40-80); PLATELET COUNT 213 10x3/uL (130-400); RBC 2.69 10x6/uL (4.00-5.40); RDW 15.6 % (11.5-14.5)
[2017-06-04 06:16] LABS: MCV 102.2 fL (80.0-100.0)
[2017-06-04 06:43] LABS: ANION GAP 9.7 mmol/L (8-16); CARBON DIOXIDE 29.5 mmol/L (21.0-32.0); CREATININE - SERUM 1.2 mg/dL (0.6-1.3); POTASSIUM - SERUM 5.2 mmol/L (3.5-5.1)
[2017-06-04 12:50] VITALS: Ht 152.4 cm
[2017-06-04 22:38] VITALS: BP 127/51
[2017-06-05 08:27] VITALS: BP 116/42
[2017-06-05 22:51] VITALS: BP 116/42
[2017-06-06 09:11] VITALS: BP 121/46
[2017-06-06 19:00] VITALS: BP 128/43
[2017-06-07 05:58] LABS: BASOPHILS 0.2 % (0-2); EOSINOPHILS 6.5 % (0-7); HEMATOCRIT 28.5 % (36.0-48.0); HEMOGLOBIN 8.7 g/dL (12-16); IMMATURE GRANULOCYTES 0.2 % (0-5); LYMPHOCYTES 28.9 % (15-50); MCH 31.4 pg (26.0-34.0); MCHC 30.5 g/dL (31.0-37.0); MCV 102.9 fL (80.0-100.0); MEAN PLATELET VOLUME 9.2 fL (7.4-10.4); MONOCYTES 7.7 % (2-11); NEUTROPHILS 56.5 % (40-80); PLATELET COUNT 237 10x3/uL (130-400); RBC 2.77 10x6/uL (4.00-5.40)
[2017-06-07 06:20] LABS: ANION GAP 10.1 mmol/L (8-16); CARBON DIOXIDE 36.2 mmol/L (21.0-32.0); CREATININE - SERUM 1.1 mg/dL (0.6-1.3); POTASSIUM - SERUM 4.3 mmol/L (3.5-5.1)
[2017-06-07 07:58] VITALS: BP 114/48
--- NOTE | 2017-06-07 11:18 | RHP ---
PATIENT: LOPEZ CASAREZ MEDICAL RECORD: [id number] ACCOUNT: [id number] LOCATION:[facility] : 54 ADMISSION DATE: 06/03/17 REHABILITATION HISTORY AND PHYSICAL EXAMINATION POST ADMISSION PHYSICIAN EXAMINATION Post-admission Physical Examination and History and Physical ADMITTING DIAGNOSIS: Urinary tract infection. HISTORY OF PRESENT ILLNESS: The patient is a 66-year-old female of Dr. Ham and Dr. Farias, was admitted to acute inpatient rehab debility secondary to urinary tract infection, history of diabetes, and dependent edema. She has got a history of diastolic heart failure, chronic lower extremity edema, and low-grade lymphoma. She presented to the ED on 05/30 and stated that she had seen Dr. Farias last week. We ordered some chest x-rays to follow mass in her lungs, the mass thus far have been indeterminate. She states she got a shower on 05/29 and her legs got weak, so she could not hold herself up. She denied any severe low back pain. For this reason, she came to the Emergency Room, indeed inability to access to ambulate. She was admitted for observation and later to the acute hospitalist. She denies any recent fever, cough, or severe low back pain. She states her quadriceps were both standard to touch and her legs felt weak. She had general malaise and gait weakness despite recent inpatient PTCA on 2016 at [facility]. She had a remote lacunar and right cerebral infarcts, probably affecting her gait, lymphoma, and adrenal mass that was benign, diabetes, history of diabetic foot ulcer, peripheral neuropathy, carcinoma of the breast, remote hyperlipidemia, depression, and hypertension. She is placed on radiographer cardiac catheterization and prior to the illness, she was moderately independent with ambulation and ADLs, living in her home with her spouse. She is currently moderate to max assist with ADLs and max assist with ambulation. She will require intensive inpatient therapy and PT and OT in order to return to her prior level of function and return home with her spouse. COMORBIDITIES: Include hypertension, diastolic CHF, leukopenia, hypoglycemia, metabolic alkalosis, diabetic gastroparesis, low-grade lymphoma, neuropathy, hyperlipidemia, depression, remote CVA, benign adrenal adenoma, and anasarca. PAST MEDICAL HISTORY: Significant for diabetes type 2, hypertension, neuropathy, history of breast cancer, hyperlipidemia, chronic anemia, depression, remote CVA, lymphoma, history of benign adrenal adenoma, anasarca, cellulitis, and diabetic foot ulcer. PAST SURGICAL HISTORY: Includes mastectomy and also a lung biopsy. ALLERGIES: No known drug allergies. CURRENT MEDICATIONS: Include DuoNeSurgeonKidzrafts. She is on MiraLax 17 gm in 8 ounces of water daily, metformin 500 mg b.i.d. with meals, Bumex 1 mg daily. She is on a glucose replacement protocol as needed, Neurontin 600 mg t.i.d. She is on low resistant sliding scale insulin, erythromycin 250 t.i.d., and polyethylene glycol 17 grams in 8 ounces of water daily. HABITS: No alcohol or tobacco use. FAMILY HISTORY: Noncontributory. HISTORY AND PHYSICAL [id number] LOPEZ CASAREZ SOCIAL HISTORY: The patient hopes to return back home and get back to her prior level of functioning. REVIEW OF SYSTEMS: GENERAL: Does complain of weakness. HEENT: She denies cold, cough, or congestion. CARDIOVASCULAR: She denies chest pain. PHYSICAL EXAMINATION: VITAL SIGNS: Stable, afebrile. GENERAL: A well-developed female in no acute distress, alert upon exam. HEENT: Normocephalic and atraumatic. Mucosa moist. NECK: Supple. No lymphadenopathy. LUNGS: Clear at this time. HEART: Regular rate and rhythm. ABDOMEN: Benign. EXTREMITIES: No clubbing, cyanosis, but does have peripheral edema. NEUROLOGIC: She does have noted paraesthesias in legs. LABORATORY DATA: Her white count is 4.0, H&H of 8.4 and 27.5, and platelet count was noted to be 213. Her MCV is elevated at 102.2. Her sodium is 139, potassium 5.2, BUN and creatinine are 69 and 1.2, and blood sugar is noted to be 90. ASSESSMENT: This is a 66-year-old female patient admitted to rehab with a working diagnosis of debility secondary to urinary tract infection with history of lymphoma. The patient has potential to make improvement. We instituted the following multidisciplinary therapies including to, but not limited to physical, occupational, respiratory, speech, nutritional services, prosthetics, and orthotics. Given her complex condition and risk for more complications, rehabilitation services cannot be provided at a low level of care such as a intermediate facility. PLAN: 1. Admit to [facility] rehab for intensive inpatient therapy to include the following disciplines: A. Physical therapy to improve gait, all transfer skills and bed mobility to a modified independent level. B. Occupational therapy to improve activities of daily living to a modified independent level. C. Case management to assist with discharge planning and placement options. D. Nutrition to assist with nutritional needs. E. Rehabilitation nursing to assist in monitoring the patient's underlying medical conditions and to assist with any type of bowel or bladder management. 2. The patient's current medication and medical care will be continued. 3. The patient will be placed on standard fall precautions. 4. We will watch her H&H and also her potassium levels closely. 5. We will discuss this patient during care team staff meeting this week. TRANSINT:[id number] Voice Confirmation ID: [id number] DOCUMENT ID: [id number] JAZZ notes whether there has been none or any medical/functional change since admission: HISTORY AND PHYSICAL [id number] LOPEZ CASAREZ - Continues with confusion. Having bowel & bladder incontinence. JAZZ attests patient continues to be appropriate for IRF: - Continues to be appropriate. CYNTHIA CASTANON MD at 1118 CC: [id number] DICTATION DATE: 06/04/17829 EXCEPTIONAL CHILDREN TEACHER: 06/04/17 1000 ADM IN [place] [id number] [place] [address]
[2017-06-07 22:38] VITALS: BP 117/49
[2017-06-08 08:46] VITALS: BP 105/42
[2017-06-08 22:05] VITALS: BP 133/59
[2017-06-09 06:33] LABS: BASOPHILS 0.8 % (0-2); EOSINOPHILS 7.7 % (0-7); HEMATOCRIT 29.1 % (36.0-48.0); HEMOGLOBIN 8.8 g/dL (12-16); LYMPHOCYTES 32.3 % (15-50); MCH 31.1 pg (26.0-34.0); MCHC 30.2 g/dL (31.0-37.0); MCV 102.8 fL (80.0-100.0); MEAN PLATELET VOLUME 8.9 fL (7.4-10.4); MONOCYTES 8.2 % (2-11); PLATELET COUNT 218 10x3/uL (130-400); RBC 2.83 10x6/uL (4.00-5.40); WBC 3.8 10x3/uL (4.8-10.8)
[2017-06-09 06:45] LABS: ANION GAP 6.5 mmol/L (8-16); CALCIUM 8.7 mg/dL (8.5-10.1); CARBON DIOXIDE 37.8 mmol/L (21.0-32.0); CREATININE - SERUM 1.1 mg/dL (0.6-1.3); POTASSIUM - SERUM 4.3 mmol/L (3.5-5.1)
[2017-06-09 11:08] VITALS: BP 111/41
[2017-06-09 22:20] VITALS: BP 132/56
[2017-06-10 08:43] VITALS: BP 119/49
[2017-06-10 13:19] LABS: ERYTHROCYTE SEDIMENTATION RATE 101 mm/hr (0-30)
[2017-06-10 20:40] VITALS: BP 129/57
[2017-06-11 05:46] LABS: BASOPHILS 0.5 % (0-2); HEMATOCRIT 27.1 % (36.0-48.0); HEMOGLOBIN 8.4 g/dL (12-16); IMMATURE GRANULOCYTES 0.3 % (0-5); LYMPHOCYTES 33.9 % (15-50); MCH 31.6 pg (26.0-34.0); MCV 101.9 fL (80.0-100.0); MEAN PLATELET VOLUME 8.9 fL (7.4-10.4); MONOCYTES 5.3 % (2-11); PLATELET COUNT 255 10x3/uL (130-400); RBC 2.66 10x6/uL (4.00-5.40); RDW 14.8 % (11.5-14.5)
[2017-06-11 06:06] LABS: CARBON DIOXIDE 35.5 mmol/L (21.0-32.0); CREATININE - SERUM 1.2 mg/dL (0.6-1.3); POTASSIUM - SERUM 4.5 mmol/L (3.5-5.1)
[2017-06-11 08:40] VITALS: BP 100/42
[2017-06-11 20:53] VITALS: BP 147/72
[2017-06-12 10:24] VITALS: BP 105/39
[2017-06-13 00:44] VITALS: BP 125/48
[2017-06-13 09:03] VITALS: BP 120/51
[2017-06-13 22:31] VITALS: BP 148/48
[2017-06-14 06:07] LABS: BASOPHILS 0.2 % (0-2); EOSINOPHILS 6.8 % (0-7); HEMATOCRIT 29.5 % (36.0-48.0); IMMATURE GRANULOCYTES 0.2 % (0-5); LYMPHOCYTES 29.7 % (15-50); MCHC 30.5 g/dL (31.0-37.0); MCV 101.7 fL (80.0-100.0); MEAN PLATELET VOLUME 8.9 fL (7.4-10.4); MONOCYTES 4.8 % (2-11); NEUTROPHILS 58.3 % (40-80); PLATELET COUNT 295 10x3/uL (130-400); RDW 14.7 % (11.5-14.5)
[2017-06-14 06:17] LABS: CARBON DIOXIDE 33.5 mmol/L (21.0-32.0); POTASSIUM - SERUM 4.5 mmol/L (3.5-5.1)
[2017-06-14 09:15] VITALS: BP 111/45
[2017-06-14 22:57] VITALS: BP 127/54
[2017-06-15 08:00] VITALS: BP 107/39
[2017-06-15 21:30] VITALS: BP 141/55
[2017-06-16 06:12] LABS: BASOPHILS 0.3 % (0-2); HEMATOCRIT 29.6 % (36.0-48.0); HEMOGLOBIN 9.2 g/dL (12-16); LYMPHOCYTES 39.6 % (15-50); MCH 31.4 pg (26.0-34.0); MCHC 31.1 g/dL (31.0-37.0); MEAN PLATELET VOLUME 8.7 fL (7.4-10.4); MONOCYTES 6.2 % (2-11); NEUTROPHILS 46.9 % (40-80); PLATELET COUNT 296 10x3/uL (130-400); RBC 2.93 10x6/uL (4.00-5.40); RDW 14.3 % (11.5-14.5); WBC 3.9 10x3/uL (4.8-10.8)
[2017-06-16 06:36] LABS: ANION GAP 12.2 mmol/L (8-16); CALCIUM 8.8 mg/dL (8.5-10.1); CARBON DIOXIDE 32.7 mmol/L (21.0-32.0); CREATININE - SERUM 1.1 mg/dL (0.6-1.3); POTASSIUM - SERUM 4.9 mmol/L (3.5-5.1)
[2017-06-16 08:19] VITALS: BP 116/49
--- NOTE | 2017-09-02 14:37 | DS ---
PATIENT:LOPEZ CASAREZ :54 MEDICAL RECORD: [id number] DISCHARGE SUMMARY ADMISSION DATE: 06/03/17 DISCHARGE DATE: 06/16/17 This is a discharge dated 06/16/2017 from inpatient rehab. PRIMARY DIAGNOSIS: Decreased functional ability and ability to provide activities of daily living secondary to weakness and debility with urinary tract infection. SECONDARY DIAGNOSES: 1. Diabetes. 2. Diastolic congestive heart failure. 3. Chronic lower extremity edema. 4. Lymphoma. 5. Hypertension. 6. Neuropathy. 7. Anemia. 8. Hyperlipidemia. 9. Gastroparesis. 10. Depression. 11. Osteoarthritis of the left hand. 12. Elevated uric acid level. HOSPITAL COURSE: Full H&P is located elsewhere on the chart on this 66-year-old female who was admitted to inpatient rehab for physical therapy and occupational therapy to improve gait, transfer skills, bed mobility, and activities of daily living to a modified independent level. She was evaluated by PT and OT and their plans of care were followed. She required shelter care for observation and assessment and medication administration. Fingerstick blood sugars were monitored throughout her hospital stay with appropriate adjustment in medications as needed. She was on erythromycin for antibiotic coverage. She had DuoNebs for respiratory support. She complained of pain in her hand, x-rays revealed osteoarthritis, and she did have an elevated uric acid level. She was cooperative with therapies, progressing towards goals. Case management was involved for discharge planning. She was considered stable for discharge on 06/16/2017. DISCHARGE MEDICATIONS: As per discharge medication reconciliation. DISCHARGE DISPOSITION: The patient is discharged home. She will continue her current diet and level of activity. She will have home health for continued PT and OT and will follow up with primary care and specialists as directed. At least 30 minutes was spent in this discharge activity. TRANSINT:[id number] Voice Confirmation ID: [id number] DOCUMENT ID: [id number] Dictated By: LYNNETTE PORRAS I have interviewed/examined the above patient and agree with these documented findings. DISCHARGE SUMMARY REPORT [id number] LOPEZ CASAREZ SCOTT MD at 1802 at 1437 CC: [id number] DICTATION DATE: 08/07/17 1137 CLIPPER MACHINE: 08/07/17 1421 DIS IN 06/16/17 [facility] [address] [place] [address]
== END 2017-06-16 14:41 | disposition home health service (06) | DRG 948 ==
LOC: D.REHAB 16:31
PROVIDERS: ADMIT Emergency Medicine
DX: R53.81 Other malaise (principal); N39.0 Urinary tract infection, site not specified; I50.30 Unspecified diastolic (congestive) heart failure; E87.3 Alkalosis; I11.0 Hypertensive heart disease with heart failure; D72.819 Decreased white blood cell count, unspecified; E11.43 Type 2 diabetes mellitus with diabetic autonomic (poly)neuropathy; K31.84 Gastroparesis; E78.5 Hyperlipidemia, unspecified; G62.9 Polyneuropathy, unspecified; D35.00 Benign neoplasm of unspecified adrenal gland; Z85.3 Personal history of malignant neoplasm of breast

== ENCOUNTER 2017-10-04 06:48 | Emergency (ER) | payer MEDICARE ==
[~2017-10-04 06:48] MED LIST changes: +ERYTHROCIN STE250 MG PO
[2017-10-04 07:39] LABS: BASOPHILS 0.5 % (0-2); EOSINOPHILS 3.4 % (0-7); HEMATOCRIT 41.8 % (36.0-48.0); HEMOGLOBIN 13.8 g/dL (12-16); IMMATURE GRANULOCYTES 0.1 % (0-5); LYMPHOCYTES 28.7 % (15-50); MCH 28.9 pg (26.0-34.0); MCV 87.6 fL (80.0-100.0); MONOCYTES 5.5 % (2-11); NEUTROPHILS 61.8 % (40-80); RBC 4.77 10x6/uL (4.00-5.40); RDW 12.4 % (11.5-14.5); WBC 7.3 10x3/uL (4.8-10.8)
[2017-10-04 07:52] LABS: PLATELET COUNT 170 10x3/uL (130-400)
[2017-10-04 07:56] LABS: ALBUMIN 3.2 g/dL (3.4-5.0); ALKALINE PHOSPHATASE 80 U/L (46-116); ALT (SGPT) 25 U/L (10-68); CALC OSMOLALITY 278 mosm/kg (275-300); CALCIUM 8.7 mg/dL (8.5-10.1); CARBON DIOXIDE 20.8 mmol/L (21.0-32.0); CHLORIDE - SERUM 98 mmol/L (98-107); CREATININE - SERUM 0.8 mg/dL (0.6-1.3); PROTEIN - SERUM 7.4 g/dL (6.4-8.2); SODIUM 133 mmol/L (136-145); UREA NITROGEN 7 mg/dL (7-18); eGFR NON AFRICAN AMERICAN 76 mL/min (90-120)
[2017-10-04 08:01] LABS: GLUCOSE 365 mg/dL (74-106)
[2017-10-04 11:34] LABS: APPEARANCE HAZY (CLEAR); BILIRUBIN NEGATIVE (NEGATIVE); COLOR YELLOW (YELLOW); GLUCOSE NEGATIVE (NEGATIVE); KETONE NEGATIVE (NEGATIVE); NITRITE NEGATIVE (NEGATIVE); PROTEIN 1+ mg/dL (NEGATIVE); UROBILINOGEN NORMAL (NORMAL)
[2017-10-04 11:35] LABS: AMORPHOUS SEDIMENT >1+ /lpf (NONE SEEN); BACTERIA FEW /hpf (NONE SEEN); EPITHELIAL CELLS 0-5 /hpf (0-5); RED CELLS - URINE 0-5 /hpf (0-5); WHITE CELLS - URINE 0-5 /hpf (0-5)
[2017-10-04 11:37] LABS: HYALINE CAST OCC /lpf (NONE SEEN); MUCUS <1+ /lpf (NONE SEEN)
== END 2017-10-04 12:50 | disposition home or self-care (01) ==
LOC: D.ER 06:48
PROVIDERS: Family Medicine
DX: T68.XXXA Hypothermia, initial encounter (principal); E11.9 Type 2 diabetes mellitus without complications; Z79.4 Long term (current) use of insulin; I50.9 Heart failure, unspecified; K21.9 Gastro-esophageal reflux disease without esophagitis

== ENCOUNTER → 2017-10-07 19:18 | Outpatient (CLI) | payer MEDICARE | END | disposition home or self-care (01) | LOC: D.MAMMO 14:15 | DX: Z12.31 Encounter for screening mammogram for malignant neoplasm of breast (principal) ==

== ENCOUNTER 2017-12-15 02:01 | Inpatient (IN) | payer MEDICARE ==
[2017-12-15] VITALS (13 sets, daily range): BP systolic 113–153; BP diastolic 53–73; Ht 152.4 cm; Wt 81.6 kg
[~2017-12-15] VITALS: Ht 152.4 cm; Wt 81.6 kg
[2017-12-15 03:14] LABS: BASOPHILS 0.2 % (0-2); HEMOGLOBIN 9.6 g/dL (12-16); IMMATURE GRANULOCYTES 0.2 % (0-5); LYMPHOCYTES 21.7 % (15-50); MCV 103.3 fL (80.0-100.0); MEAN PLATELET VOLUME 9.4 fL (7.4-10.4); MONOCYTES 8.9 % (2-11); RDW 15.4 % (11.5-14.5); WBC 4.7 10x3/uL (4.8-10.8)
[2017-12-15 03:22] LABS: PLATELET COUNT 124 10x3/uL (130-400)
[2017-12-15 03:33] LABS: ALBUMIN 2.8 g/dL (3.4-5.0); ANION GAP 8.3 mmol/L (8-16); BILIRUBIN - TOTAL 0.51 mg/dL (0.2-1.3); CALCIUM 8.7 mg/dL (8.5-10.1); CARBON DIOXIDE 31.7 mmol/L (21.0-32.0); CREATININE - SERUM 1.2 mg/dL (0.6-1.3); PROTEIN - SERUM 6.9 g/dL (6.4-8.2)
[2017-12-15 03:44] LABS: MAGNESIUM - SERUM 2.4 mg/dL (1.8-2.4); TROPONIN-I 0.04 ng/mL (0.000-0.060)
[2017-12-15 04:52] LABS: APPEARANCE CLEAR (CLEAR); COLOR YELLOW (YELLOW)
[2017-12-15 04:53] LABS: BILIRUBIN NEGATIVE (NEGATIVE); GLUCOSE 100 mg/dL (NEGATIVE); KETONE NEGATIVE (NEGATIVE); NITRITE NEGATIVE (NEGATIVE); PROTEIN 3+ mg/dL (NEGATIVE); UROBILINOGEN NORMAL (NORMAL)
[2017-12-15 04:54] LABS: BACTERIA FEW /hpf (NONE SEEN); EPITHELIAL CELLS 0-5 /hpf (0-5); RED CELLS - URINE 0-5 /hpf (0-5); WHITE CELLS - URINE 0-5 /hpf (0-5)
[2017-12-15 19:21] LABS: FERRITIN 56 ng/mL (3-244); LDH 269 U/L (81-234)
[2017-12-15 19:33] LABS: IRON 44 ug/dl (35-150)
[2017-12-15 19:35] LABS: % SATURATION 12 % (15-55); TOTAL IRON BIND CAPACITY 353 ug/dl (260-445); UNSAT IRON BIND CAPACITY 309 ug/dl (150-375)
[2017-12-16 03:00] VITALS: BP 118/53
[2017-12-16 04:29] LABS: BASOPHILS 0.2 % (0-2); EOSINOPHILS 3.7 % (0-7); HEMATOCRIT 31.6 % (36.0-48.0); HEMOGLOBIN 9.6 g/dL (12-16); LYMPHOCYTES 26.5 % (15-50); MCH 31.4 pg (26.0-34.0); MCHC 30.4 g/dL (31.0-37.0); MCV 103.3 fL (80.0-100.0); MONOCYTES 11.3 % (2-11); NEUTROPHILS 58.3 % (40-80); PLATELET COUNT 133 10x3/uL (130-400); RBC 3.06 10x6/uL (4.00-5.40); RDW 15.6 % (11.5-14.5); WBC 4.6 10x3/uL (4.8-10.8)
[2017-12-16 04:47] LABS: ALBUMIN 2.6 g/dL (3.4-5.0); BILIRUBIN - TOTAL 0.6 mg/dL (0.2-1.3); CALCIUM 8.3 mg/dL (8.5-10.1); CARBON DIOXIDE 34.7 mmol/L (21.0-32.0); CREATININE - SERUM 1.3 mg/dL (0.6-1.3); MAGNESIUM - SERUM 2.1 mg/dL (1.8-2.4); PROTEIN - SERUM 6.7 g/dL (6.4-8.2)
[2017-12-16 04:56] LABS: ANION GAP 7.1 mmol/L (8-16); POTASSIUM - SERUM 4.8 mmol/L (3.5-5.1)
[2017-12-16 07:00] VITALS: BP 123/54
[2017-12-16 11:00] VITALS: BP 120/53
[2017-12-16 15:54] VITALS: BP 153/70
[2017-12-16 20:00] VITALS: BP 139/46
[2017-12-17] VITALS (9 sets, daily range): BP systolic 104–150; BP diastolic 33–82
[2017-12-17 05:36] LABS: BASOPHILS 0.4 % (0-2); EOSINOPHILS 3.9 % (0-7); HEMATOCRIT 29.6 % (36.0-48.0); HEMOGLOBIN 9.1 g/dL (12-16); MCH 31.6 pg (26.0-34.0); MCHC 30.7 g/dL (31.0-37.0); MCV 102.8 fL (80.0-100.0); MEAN PLATELET VOLUME 9.3 fL (7.4-10.4); NEUTROPHILS 63.7 % (40-80); PLATELET COUNT 124 10x3/uL (130-400); RBC 2.88 10x6/uL (4.00-5.40); RDW 15.2 % (11.5-14.5); WBC 5.4 10x3/uL (4.8-10.8)
[2017-12-17 05:53] LABS: ALBUMIN 2.5 g/dL (3.4-5.0); ANION GAP 5.9 mmol/L (8-16); APTT 27.1 SECONDS (22.8-39.4); BILIRUBIN - TOTAL 0.41 mg/dL (0.2-1.3); CALCIUM 8.4 mg/dL (8.5-10.1); CARBON DIOXIDE 36.1 mmol/L (21.0-32.0); CREATININE - SERUM 1.5 mg/dL (0.6-1.3); INR 1.18 (0.85-1.17); MAGNESIUM - SERUM 2.2 mg/dL (1.8-2.4); PROTEIN - SERUM 6.5 g/dL (6.4-8.2); PROTIME 14.5 SECONDS (11.6-15.0)
[2017-12-17 08:20] LABS: FOLATE (FOLIC ACID) - SERUM >20.0 ng/mL (>3.0)
[2017-12-18 01:11] VITALS: BP 123/43
[2017-12-18 05:45] LABS: BASOPHILS 0.3 % (0-2); EOSINOPHILS 3.3 % (0-7); HEMATOCRIT 30.9 % (36.0-48.0); HEMOGLOBIN 9.5 g/dL (12-16); IMMATURE GRANULOCYTES 0.2 % (0-5); LYMPHOCYTES 16.8 % (15-50); MCH 31.3 pg (26.0-34.0); MCHC 30.7 g/dL (31.0-37.0); MCV 101.6 fL (80.0-100.0); MEAN PLATELET VOLUME 9.2 fL (7.4-10.4); MONOCYTES 8.6 % (2-11); NEUTROPHILS 70.8 % (40-80); PLATELET COUNT 137 10x3/uL (130-400); RBC 3.04 10x6/uL (4.00-5.40); RDW 14.9 % (11.5-14.5); WBC 6.1 10x3/uL (4.8-10.8)
[2017-12-18 05:46] VITALS: BP 112/45
[2017-12-18 05:47] LABS: ALBUMIN 2.5 g/dL (3.4-5.0); ANION GAP 6.2 mmol/L (8-16); BILIRUBIN - TOTAL 0.4 mg/dL (0.2-1.3); CALCIUM 8.2 mg/dL (8.5-10.1); CARBON DIOXIDE 33.8 mmol/L (21.0-32.0); CREATININE - SERUM 1.3 mg/dL (0.6-1.3); MAGNESIUM - SERUM 2.5 mg/dL (1.8-2.4); PROTEIN - SERUM 6.8 g/dL (6.4-8.2)
[2017-12-18 08:26] VITALS: BP 145/46
[2017-12-18 11:51] VITALS: BP 124/40
[2017-12-18 16:33] VITALS: BP 140/55
[2017-12-18 20:46] VITALS: BP 127/57
[2017-12-19 01:06] VITALS: BP 144/50
[2017-12-19 06:10] VITALS: BP 137/55
[2017-12-19 06:23] LABS: BASOPHILS 0.4 % (0-2); EOSINOPHILS 4.2 % (0-7); HEMATOCRIT 30.3 % (36.0-48.0); HEMOGLOBIN 9.3 g/dL (12-16); IMMATURE GRANULOCYTES 0.2 % (0-5); LYMPHOCYTES 18.3 % (15-50); MCH 31.3 pg (26.0-34.0); MCHC 30.7 g/dL (31.0-37.0); MEAN PLATELET VOLUME 9.3 fL (7.4-10.4); MONOCYTES 10.3 % (2-11); NEUTROPHILS 66.6 % (40-80); PLATELET COUNT 146 10x3/uL (130-400); RBC 2.97 10x6/uL (4.00-5.40); RDW 14.9 % (11.5-14.5); WBC 5.5 10x3/uL (4.8-10.8)
[2017-12-19 06:47] LABS: ALBUMIN 2.4 g/dL (3.4-5.0); ANION GAP 6.4 mmol/L (8-16); BILIRUBIN - TOTAL 0.3 mg/dL (0.2-1.3); CALCIUM 8.1 mg/dL (8.5-10.1); CARBON DIOXIDE 33.9 mmol/L (21.0-32.0); CREATININE - SERUM 1.3 mg/dL (0.6-1.3); MAGNESIUM - SERUM 2.5 mg/dL (1.8-2.4); POTASSIUM - SERUM 5.3 mmol/L (3.5-5.1); PROTEIN - SERUM 6.6 g/dL (6.4-8.2)
[2017-12-19 09:12] VITALS: BP 146/60
[2017-12-19 12:37] VITALS: BP 119/45
[2017-12-19 17:32] VITALS: BP 119/47
[2017-12-19 20:00] VITALS: BP 128/60
[2017-12-20] VITALS: BP 129/50
[2017-12-20 04:00] VITALS: BP 130/58
[2017-12-20 05:10] LABS: BASOPHILS 0.2 % (0-2); EOSINOPHILS 3.6 % (0-7); HEMOGLOBIN 9.4 g/dL (12-16); IMMATURE GRANULOCYTES 0.2 % (0-5); LYMPHOCYTES 18.2 % (15-50); MCH 31.1 pg (26.0-34.0); MCHC 30.3 g/dL (31.0-37.0); MCV 102.6 fL (80.0-100.0); MEAN PLATELET VOLUME 9.3 fL (7.4-10.4); MONOCYTES 9.2 % (2-11); NEUTROPHILS 68.6 % (40-80); PLATELET COUNT 151 10x3/uL (130-400); RBC 3.02 10x6/uL (4.00-5.40); RDW 14.8 % (11.5-14.5); WBC 5.8 10x3/uL (4.8-10.8)
[2017-12-20 05:25] LABS: ALBUMIN 2.5 g/dL (3.4-5.0); BILIRUBIN - TOTAL 0.2 mg/dL (0.2-1.3); CALCIUM 8.4 mg/dL (8.5-10.1); CARBON DIOXIDE 34.9 mmol/L (21.0-32.0); CREATININE - SERUM 1.2 mg/dL (0.6-1.3); MAGNESIUM - SERUM 2.4 mg/dL (1.8-2.4); POTASSIUM - SERUM 4.9 mmol/L (3.5-5.1); PROTEIN - SERUM 6.8 g/dL (6.4-8.2)
[2017-12-20 08:11] VITALS: BP 131/51
[2017-12-20 12:24] VITALS: BP 123/58
[2017-12-20 15:31] VITALS: BP 134/56
[2017-12-20 20:00] VITALS: BP 127/50
[2017-12-21 06:14] LABS: BASOPHILS 0.3 % (0-2); EOSINOPHILS 3.9 % (0-7); HEMOGLOBIN 9.7 g/dL (12-16); IMMATURE GRANULOCYTES 0.2 % (0-5); LYMPHOCYTES 17.9 % (15-50); MCH 31.2 pg (26.0-34.0); MCHC 30.3 g/dL (31.0-37.0); MCV 102.9 fL (80.0-100.0); MEAN PLATELET VOLUME 9.5 fL (7.4-10.4); MONOCYTES 7.7 % (2-11); PLATELET COUNT 158 10x3/uL (130-400); RBC 3.11 10x6/uL (4.00-5.40); RDW 14.9 % (11.5-14.5); WBC 6.1 10x3/uL (4.8-10.8)
[2017-12-21 06:40] LABS: ALBUMIN 2.5 g/dL (3.4-5.0); ANION GAP 8.7 mmol/L (8-16); BILIRUBIN - TOTAL 0.24 mg/dL (0.2-1.3); CALCIUM 8.8 mg/dL (8.5-10.1); CARBON DIOXIDE 35.9 mmol/L (21.0-32.0); CREATININE - SERUM 1.2 mg/dL (0.6-1.3); POTASSIUM - SERUM 4.6 mmol/L (3.5-5.1); PROTEIN - SERUM 6.9 g/dL (6.4-8.2)
[2017-12-21 08:24] VITALS: BP 133/55
[2017-12-21 12:35] VITALS: BP 132/60
[2017-12-21 20:00] VITALS: BP 133/49
[2017-12-22] VITALS: BP 124/47
[2017-12-22 04:00] VITALS: BP 131/53
[2017-12-22 06:21] LABS: BASOPHILS 0.7 % (0-2); EOSINOPHILS 5.1 % (0-7); HEMATOCRIT 31.5 % (36.0-48.0); HEMOGLOBIN 9.7 g/dL (12-16); IMMATURE GRANULOCYTES 0.4 % (0-5); LYMPHOCYTES 26.3 % (15-50); MCH 31.5 pg (26.0-34.0); MCHC 30.8 g/dL (31.0-37.0); MCV 102.3 fL (80.0-100.0); MEAN PLATELET VOLUME 9.2 fL (7.4-10.4); MONOCYTES 7.1 % (2-11); NEUTROPHILS 60.4 % (40-80); PLATELET COUNT 158 10x3/uL (130-400); RBC 3.08 10x6/uL (4.00-5.40); RDW 14.8 % (11.5-14.5)
[2017-12-22 06:33] LABS: WBC 4.5 10x3/uL (4.8-10.8)
[2017-12-22 06:57] LABS: ALBUMIN 2.4 g/dL (3.4-5.0); ANION GAP 8.1 mmol/L (8-16); BILIRUBIN - TOTAL 0.4 mg/dL (0.2-1.3); CALCIUM 8.8 mg/dL (8.5-10.1); CARBON DIOXIDE 35.9 mmol/L (21.0-32.0); PROTEIN - SERUM 6.8 g/dL (6.4-8.2)
[2017-12-22 08:40] VITALS: BP 150/67
[2017-12-22 12:48] VITALS: BP 136/73
[2017-12-22 16:15] VITALS: BP 127/51
== END 2017-12-22 19:01 | DRG 809 ==
LOC: D.ER 02:01 → D.ICU 06:13 → D.M2 06:13 → D.EDHOLD 06:13 → D.ICU 06:54 → D.M2 12-16 11:57
PROVIDERS: Family Medicine; Legal Medicine; Physician Assistant Medical; Radiology Diagnostic Radiology
PROC: 0BBG3ZX Excision of Left Upper Lung Lobe, Percutaneous Approach, Diagnostic (ICD-10-PCS; principal; 2017-12-17 09:30)
DX: D61.818 Other pancytopenia (principal); N39.0 Urinary tract infection, site not specified; E11.649 Type 2 diabetes mellitus with hypoglycemia without coma; E11.43 Type 2 diabetes mellitus with diabetic autonomic (poly)neuropathy; K31.84 Gastroparesis; Z79.4 Long term (current) use of insulin; R91.8 Other nonspecific abnormal finding of lung field; E27.8 Other specified disorders of adrenal gland; K59.00 Constipation, unspecified; R60.1 Generalized edema; E87.5 Hyperkalemia; E83.41 Hypermagnesemia; I11.0 Hypertensive heart disease with heart failure; I50.9 Heart failure, unspecified; Z86.73 Personal history of transient ischemic attack (TIA), and cerebral infarction without residual deficits

== ENCOUNTER 2017-12-22 14:11 | Inpatient (IN) | payer MEDICARE ==
[~2017-12-22] VITALS: Ht 152.4 cm; Wt 65.8 kg
--- NOTE | ~2017-12-22 | RHP ---
PATIENT: LOPEZ CASAREZ MEDICAL RECORD: [id number] ACCOUNT: [id number] LOCATION:[facility]1112 : 54 ADMISSION DATE: 12/22/17 REHABILITATION HISTORY AND PHYSICAL EXAMINATION POST ADMISSION PHYSICIAN EXAMINATION POST-ADMISSION PHYSICAL EXAM AND HISTORY AND PHYSICAL DATE OF ADMISSION: 12/22/2017 ADMITTING DIAGNOSIS: Urinary tract infection. HISTORY OF PRESENT ILLNESS: The patient is a 67-year-old female patient of Dr. Farias and Dr. Ham who presents secondary to urinary tract infection, anasarca, and metabolic alkalosis. She has got a past medical history of neuropathy, gastroparesis, chronic anasarca, leukocytopenia, insulin-dependent diabetes. She presented to the ED on 12/15/2017 with weakness and confusion. She was found to have hypoglycemia down to 44. She is recommended for admission a week ago, but declined. On admit, her CBC showed a white count of 4.7, H&H of 9.6 and platelet count was 124. Chest x-ray showed a questionable left lower lung mass. She had generalized weakness, abdominal distention. She was admitted to the ICU for IV diuresis. On 12/15/2017, a biopsy was performed through interventional radiology. She has been stable during the hospital stay. She diuresed well and recovered from this lung biopsy. She has got chronic deconditioning that is worsened with her hospital stay. She is [id number] assist for ADLs and mobility. She is very weak and shaky with standing. She has ambulated 6 feet with PT with 40% to 50% assist with a rolling walker, gait belt and PT. She is on O2 p.r.n., but currently is in demand that she is on 3.5 liters continuously. She wants to get back to her prior level of functioning. She was moderately independent with rolling walker at home. Comorbidities in this patient include leukopenia, hypoglycemia, hepatomegaly, mass of lower lung, prerenal azotemia, anasarca, pancytopenia, fatigue, weakness, dizziness, neuropathy, orthopnea, dysuria, hyperkalemia, hypermagnesemia, anxiety, history of CHF and CVA. PAST MEDICAL HISTORY: Significant for CVA and weakness, diabetes. She has got a history of breast cancer. PAST SURGICAL HISTORY: Includes lymph node removal from her right arm. ALLERGIES: No known drug allergies. MEDICATIONS: Current medications include Tylenol 650 q.4 hours p.r.n., MiraLax 17 grams in 8 ounces of water daily, metformin 500 mg b.i.d. with meals, Bumex 1 mg prior to lunch, DuoNeb updrafts as needed, Neurontin 600 mg t.i.d., and polyethylene glycol 17 g in 8 ounces of water daily. HABITS: No current alcohol or tobacco use. FAMILY HISTORY: Noncontributory. SOCIAL HISTORY: The patient hopes to return back home and get back to her prior level of functioning. REVIEW OF SYSTEMS: HISTORY AND PHYSICAL [id number] LOPEZ CASAREZ GENERAL: Does complain of weakness and fatigue. HEENT: Denies cold, cough, or congestion. CARDIOVASCULAR: Denies chest pain. PHYSICAL EXAMINATION: VITAL SIGNS: Stable, afebrile. Generally a thin white female in no distress, alert upon exam. HEENT: Normocephalic and atraumatic. Mucosa moist. NECK: Supple. No lymphadenopathy. LUNGS: Clear at this time. HEART: Regular rate and rhythm. ABDOMEN: Benign. EXTREMITIES: Does have some peripheral edema. NEUROLOGIC: Intact. LABORATORY DATA: White count is 5.1, H&H of 9.7 and 31.2 and platelet count was noted to be 161. Her sodium is 139, potassium 4.3, BUN and creatinine of 55 and 1.2, and blood sugar was noted to be 179. ASSESSMENT: This is a 67-year-old female patient admitted to rehab with a working diagnosis of UTI with also possible left lower lung mass and also anasarca. The patient has potential to make improvement. We instituted the following multidisciplinary therapies including, but limited to physical, occupational, respiratory, speech, nutritional services, prosthetics and orthotics. Given her complex medical condition and risk for more complications, rehabilitation services cannot be provided at a low level of care such as fdc facility. PLAN: 1. Admit to [facility] for intensive inpatient therapy to include the following disciplines: A. Physical therapy to improve gait, all transfer skills and bed mobility to a modified independent level. B. Occupational therapy to improve activities of daily living to a modified independent level. C. Case management to assist with discharge planning and placement options. D. Nutrition to assist with nutritional needs. E. Rehabilitation nursing to assist in monitoring the patient's underlying medical conditions and to assist with any type of bowel or bladder management. 2. The patient's current medication and medical care will be continued. 3. The patient will be placed on standard fall precautions. 4. The patient's estimated length of stay is approximately 7-10 days. 5. We will discuss this patient during care team staff meeting this week. TRANSINT:[id number] Voice Confirmation ID: [id number] DOCUMENT ID: [id number] JAZZ notes whether there has been none or any medical/functional change since admission: - No change since prescreen. JAZZ attests patient continues to be appropriate for IRF: - Continues to be appropriate. HISTORY AND PHYSICAL [id number] LOPEZ CASAREZ SCOTT MD at 1405 CC: [id number] DICTATION DATE: 12/23/17 0932 BLOOD AND PLASMA LABORATORY ASSISTANT: 12/23/17 1029 ADM IN [place] [id number] [place] [address]
[2017-12-22 19:00] VITALS: BP 131/52
[2017-12-23 06:31] LABS: BASOPHILS 0.4 % (0-2); HEMATOCRIT 31.2 % (36.0-48.0); HEMOGLOBIN 9.7 g/dL (12-16); IMMATURE GRANULOCYTES 0.2 % (0-5); LYMPHOCYTES 24.7 % (15-50); MCH 31.5 pg (26.0-34.0); MCHC 31.1 g/dL (31.0-37.0); MCV 101.3 fL (80.0-100.0); MEAN PLATELET VOLUME 9.4 fL (7.4-10.4); MONOCYTES 7.5 % (2-11); NEUTROPHILS 64.2 % (40-80); PLATELET COUNT 161 10x3/uL (130-400); RBC 3.08 10x6/uL (4.00-5.40); RDW 14.3 % (11.5-14.5); WBC 5.1 10x3/uL (4.8-10.8)
[2017-12-23 07:03] LABS: ANION GAP 9.6 mmol/L (8-16); CALCIUM 8.6 mg/dL (8.5-10.1); CARBON DIOXIDE 36.7 mmol/L (21.0-32.0); CREATININE - SERUM 1.2 mg/dL (0.6-1.3); POTASSIUM - SERUM 4.3 mmol/L (3.5-5.1)
[2017-12-23 07:52] VITALS: BP 102/44
[2017-12-23 12:32] VITALS: Ht 152.4 cm; Wt 65.8 kg
[2017-12-23 19:00] VITALS: BP 146/53
[2017-12-24 05:45] LABS: BASOPHILS 0.4 % (0-2); EOSINOPHILS 5.3 % (0-7); HEMATOCRIT 29.2 % (36.0-48.0); HEMOGLOBIN 8.9 g/dL (12-16); IMMATURE GRANULOCYTES 0.2 % (0-5); LYMPHOCYTES 27.6 % (15-50); MCH 30.8 pg (26.0-34.0); MCHC 30.5 g/dL (31.0-37.0); MEAN PLATELET VOLUME 9.1 fL (7.4-10.4); MONOCYTES 7.3 % (2-11); NEUTROPHILS 59.2 % (40-80); PLATELET COUNT 180 10x3/uL (130-400); RBC 2.89 10x6/uL (4.00-5.40); RDW 14.3 % (11.5-14.5); WBC 4.9 10x3/uL (4.8-10.8)
[2017-12-24 06:24] LABS: ANION GAP 7.5 mmol/L (8-16); CALCIUM 8.6 mg/dL (8.5-10.1); CARBON DIOXIDE 33.7 mmol/L (21.0-32.0); CREATININE - SERUM 1.3 mg/dL (0.6-1.3); POTASSIUM - SERUM 4.2 mmol/L (3.5-5.1)
[2017-12-24 08:19] VITALS: BP 116/59
[2017-12-24 19:00] VITALS: BP 148/56
[2017-12-25 07:30] VITALS: BP 112/57
[2017-12-25 20:49] VITALS: BP 145/56
[2017-12-26 08:25] VITALS: BP 121/47
[2017-12-26 22:34] VITALS: BP 150/69
[2017-12-27 06:35] LABS: BASOPHILS 0.3 % (0-2); EOSINOPHILS 5.4 % (0-7); HEMATOCRIT 30.4 % (36.0-48.0); HEMOGLOBIN 9.3 g/dL (12-16); IMMATURE GRANULOCYTES 0.2 % (0-5); MCH 31.2 pg (26.0-34.0); MCHC 30.6 g/dL (31.0-37.0); MEAN PLATELET VOLUME 9.1 fL (7.4-10.4); MONOCYTES 5.2 % (2-11); NEUTROPHILS 64.9 % (40-80); PLATELET COUNT 201 10x3/uL (130-400); RBC 2.98 10x6/uL (4.00-5.40); RDW 14.4 % (11.5-14.5); WBC 5.7 10x3/uL (4.8-10.8)
[2017-12-27 06:55] LABS: ANION GAP 9.7 mmol/L (8-16); CALCIUM 8.9 mg/dL (8.5-10.1); CREATININE - SERUM 1.4 mg/dL (0.6-1.3); POTASSIUM - SERUM 4.7 mmol/L (3.5-5.1)
[2017-12-27 08:00] VITALS: BP 109/49
[2017-12-27 19:00] VITALS: BP 137/47
[2017-12-28 06:15] LABS: BASOPHILS 0.3 % (0-2); EOSINOPHILS 6.3 % (0-7); HEMOGLOBIN 9.3 g/dL (12-16); IMMATURE GRANULOCYTES 0.2 % (0-5); LYMPHOCYTES 24.6 % (15-50); MCH 31.3 pg (26.0-34.0); MEAN PLATELET VOLUME 9.1 fL (7.4-10.4); MONOCYTES 6.5 % (2-11); NEUTROPHILS 62.1 % (40-80); PLATELET COUNT 203 10x3/uL (130-400); RBC 2.97 10x6/uL (4.00-5.40); RDW 14.4 % (11.5-14.5); WBC 5.9 10x3/uL (4.8-10.8)
[2017-12-28 06:40] LABS: ANION GAP 11.2 mmol/L (8-16); CALCIUM 9.1 mg/dL (8.5-10.1); CREATININE - SERUM 1.3 mg/dL (0.6-1.3); POTASSIUM - SERUM 4.2 mmol/L (3.5-5.1)
[2017-12-28 08:33] VITALS: BP 130/56
[2017-12-28 19:00] VITALS: BP 134/47
[2017-12-29 07:37] VITALS: BP 101/45
[2017-12-29 19:00] VITALS: BP 153/51
[2017-12-30 09:00] VITALS: BP 119/60
[2017-12-30 19:16] VITALS: BP 155/56
[2017-12-31 08:48] VITALS: BP 123/48
[2017-12-31 19:00] VITALS: BP 137/81
[2018-01-01 08:19] VITALS: BP 120/57
[2018-01-01 20:32] VITALS: BP 146/54
[2018-01-02 20:20] VITALS: BP 141/50
[2018-01-03 05:40] LABS: BASOPHILS 0.4 % (0-2); EOSINOPHILS 6.8 % (0-7); HEMATOCRIT 30.5 % (36.0-48.0); HEMOGLOBIN 9.5 g/dL (12-16); LYMPHOCYTES 29.7 % (15-50); MCH 31.1 pg (26.0-34.0); MCHC 31.1 g/dL (31.0-37.0); MEAN PLATELET VOLUME 9.5 fL (7.4-10.4); MONOCYTES 5.5 % (2-11); NEUTROPHILS 57.6 % (40-80); RBC 3.05 10x6/uL (4.00-5.40); RDW 14.1 % (11.5-14.5); WBC 5.5 10x3/uL (4.8-10.8)
[2018-01-03 05:53] LABS: CALCIUM 8.9 mg/dL (8.5-10.1); CARBON DIOXIDE 32.2 mmol/L (21.0-32.0); CREATININE - SERUM 1.7 mg/dL (0.6-1.3); POTASSIUM - SERUM 5.2 mmol/L (3.5-5.1)
[2018-01-03 05:54] LABS: PLATELET COUNT 155 10x3/uL (130-400)
[2018-01-03 08:34] VITALS: BP 122/47
[2018-01-03 19:00] VITALS: BP 147/45
[2018-01-04 06:28] LABS: BASOPHILS 0.5 % (0-2); EOSINOPHILS 6.9 % (0-7); HEMATOCRIT 30.6 % (36.0-48.0); HEMOGLOBIN 9.8 g/dL (12-16); MCH 31.9 pg (26.0-34.0); MCV 99.7 fL (80.0-100.0); MEAN PLATELET VOLUME 9.6 fL (7.4-10.4); MONOCYTES 5.2 % (2-11); NEUTROPHILS 62.4 % (40-80); PLATELET COUNT 175 10x3/uL (130-400); RBC 3.07 10x6/uL (4.00-5.40); RDW 14.2 % (11.5-14.5); WBC 5.8 10x3/uL (4.8-10.8)
[2018-01-04 06:50] LABS: ANION GAP 12.2 mmol/L (8-16); CARBON DIOXIDE 31.4 mmol/L (21.0-32.0); CREATININE - SERUM 1.6 mg/dL (0.6-1.3); POTASSIUM - SERUM 4.6 mmol/L (3.5-5.1)
[2018-01-04 08:00] VITALS: BP 95/57
[2018-01-04 08:41] VITALS: BP 116/47
[2018-01-04 19:00] VITALS: BP 129/54
[2018-01-05 08:00] VITALS: BP 133/55
[2018-01-05 19:00] VITALS: BP 128/54
[2018-01-06 05:35] LABS: BASOPHILS 0.4 % (0-2); EOSINOPHILS 4.8 % (0-7); HEMATOCRIT 33.6 % (36.0-48.0); HEMOGLOBIN 10.7 g/dL (12-16); IMMATURE GRANULOCYTES 0.1 % (0-5); LYMPHOCYTES 22.5 % (15-50); MCH 31.8 pg (26.0-34.0); MCHC 31.8 g/dL (31.0-37.0); MEAN PLATELET VOLUME 9.1 fL (7.4-10.4); MONOCYTES 5.8 % (2-11); NEUTROPHILS 66.4 % (40-80); PLATELET COUNT 155 10x3/uL (130-400); RBC 3.36 10x6/uL (4.00-5.40); RDW 14.1 % (11.5-14.5); WBC 7.2 10x3/uL (4.8-10.8)
[2018-01-06 05:45] LABS: ANION GAP 9.2 mmol/L (8-16); CALCIUM 9.1 mg/dL (8.5-10.1); CARBON DIOXIDE 32.8 mmol/L (21.0-32.0)
[2018-01-06 05:59] LABS: CREATININE - SERUM 2.3 mg/dL (0.6-1.3)
[2018-01-06 08:00] VITALS: BP 102/36
[2018-01-06] MEDS ORDERED: BUMEX 1 MG TAB1 MG PO (11:10)
== END 2018-01-06 16:52 | disposition home health service (06) | DRG 690 ==
LOC: D.REHAB 14:11
PROVIDERS: Emergency Medicine; Family Medicine
DX: N39.0 Urinary tract infection, site not specified (principal); D61.818 Other pancytopenia; D72.819 Decreased white blood cell count, unspecified; R16.0 Hepatomegaly, not elsewhere classified; R91.8 Other nonspecific abnormal finding of lung field; R79.89 Other specified abnormal findings of blood chemistry; R60.1 Generalized edema; R53.83 Other fatigue; R53.1 Weakness; R42 Dizziness and giddiness; G62.9 Polyneuropathy, unspecified; R06.01 Orthopnea; E87.5 Hyperkalemia; R30.0 Dysuria; E83.41 Hypermagnesemia; F41.9 Anxiety disorder, unspecified

== ENCOUNTER 2018-01-25 19:47 | Inpatient (IN) | payer MEDICARE ==
[~2018-01-25] VITALS: Ht 152.4 cm; Wt 64.5 kg
--- NOTE | ~2018-01-25 | PN ---
PATIENT:LOPEZ CASAREZ MEDICAL RECORD: [id number] LOCATION:.[facility] D.230 ADMISSION DATE: 01/27/18 PROGRESS NOTE DATE OF SERVICE: 03/15/2018 SUBJECTIVE: This is a 67-year-old female who was admitted for acute respiratory failure with hypoxemia. The patient was noted to have bilateral edema, possible ARDS. Also was noted to have acute renal failure. She has had dialysis without significant improvement. She also has severe thrombocytopenia secondary to RUBINA and on argatroban. The patient has been on Solu-Medrol. She has had multifocal infiltrates and pneumonia. The patient is sedated this morning. as well as the daughter is at the bedside. PHYSICAL EXAMINATION: GENERAL: Reveals a sedated female on the ventilator. VITAL SIGNS: Temperature 98.4, heart rate of 84, respiratory rate of 16, blood pressure 144/65, saturations 96%. SHEENT: Unremarkable. There is no petechia. Normocephalic. Pupils are equal and reactive. NECK: Supple. There is no adenopathy. Trachea is midline. CHEST: Shows some mild crackles bilaterally. There is no accessory muscle use. HEART: Shows no jugular venous distention, murmur or gallops. ABDOMEN: Shows no tenderness, distention, or masses. EXTREMITIES: Shows no clubbing, cyanosis or edema. LABORATORY DATA: Showed white count of 5.8, hemoglobin 9.9, platelet count is 16,000. Arterial blood gas: pH 7.41, pCO2 of 39, and pO2 of 73 on 50% FIO2. Chest x-ray showed right pleural effusion and multifocal infiltrates involving the left upper, left lower, and right lower lobe of the lung. ASSESSMENT: 1. Sepsis. 2. Multifocal pneumonia. We will restart antibiotics. 3. Thrombocytopenia, RUBINA syndrome. The patient is on argatroban. 4. Acute renal failure. The patient is probably euvolemic. 5. Anemia. 6. Hyponatremia. It should be corrected. DISCUSSION: NEUROPSYCHIATRIC: The patient is sedated. There are no focal signs. CARDIOVASCULAR: There are no apparent issues. PULMONARY AND RESPIRATORY: The patient is on the ventilator. She has pneumonia. The patient appeared to have ARDS initially, but has been on dialysis showing multifocal pneumonia. KIDNEYS AND METABOLIC: The patient has been on dialysis with improving creatinine levels. Ammonia level has been high and is getting lactulose. BNP has also been high about 20,000. She has severe low albumin levels and hypoalbuminemia and malnutrition. PLAN: 1. Restart antibiotics. 2. The patient is awaiting tracheostomy tube placement and platelet count is improved. 3. Continue dialysis. PROGRESS NOTE [id number] LOPEZ CASAREZ 4. Taper steroids. TRANSINT:[id number] Voice Confirmation ID: [id number] DOCUMENT ID: [id number] CORNELL ROBLES at 0820 CC: [id number] DICTATION DATE: 03/15/18 1026 PIANO ACCOMPANIST: 03/15/18 1108 ADM IN [facility] [address] [place] [address]
--- NOTE | ~2018-01-25 | PN ---
PATIENT:LOPEZ CASAREZ MEDICAL RECORD: [id number] LOCATION:D.[facility] D.230 ADMISSION DATE: 01/27/18 PROGRESS NOTE DATE OF SERVICE: 03/01/2018 HISTORY OF PRESENT ILLNESS: This is a 67-year-old female who was admitted with hypoxic respiratory failure. The patient was placed on BiPAP, but failed with increasing oxygen requirement up to 100%. The patient's mental status declined and was intubated yesterday. Chest x-ray has shown possible edema and ARDS. The patient had diabetes mellitus. 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 The patient denies known fever. PHYSICAL EXAMINATION: GENERAL: Reveals an elderly female who is sedated. VITAL SIGNS: Temperature 100, heart rate of 79, respiratory rate of 12, blood pressure 149/70. Saturation is 93% to 96%. SHEENT: Unremarkable. NECK: Supple. CHEST: Shows some mild rales, which are dependent areas. There is no accessory muscle use. CARDIOVASCULAR: Shows no jugular venous distention, murmur or gallops. ABDOMEN: Benign, without any tenderness. EXTREMITIES: No clubbing, cyanosis or edema. LABORATORY DATA: Shows white count 9.8, hemoglobin 8.9, and platelet count is 64,000. Arterial blood gas: pH 7.48, pCO2 of 48, pO2 of 61, and 50%. Chest x-ray showed persistent diffuse bilateral airspace disease concerning for acute respiratory distress syndrome, pulmonary edema, diffuse pneumonia. ASSESSMENT: 1. Acute respiratory failure with hypoxemia, possibly secondary to ARDS. 2. Acute renal failure. 3. Anemia, mild. 4. GI bleed with occult blood. DISCUSSION: NEUROPSYCHIATRY: The patient has had previous strokes. Mental status is decreased probably from critical illness. CARDIOVASCULAR: No issues at this time. PULMONARY: The patient has ARDS. We will give Lasix in case the patient has volume overload. Continue bronchodilator therapy. PLAN: 1. Ventilatory support. 2. Lasix. 3. Tube feeding. TRANSINT:[id number] Voice Confirmation ID: [id number] DOCUMENT ID: [id number] PROGRESS NOTE [id number] LOPEZ CASAREZ CORNELL ROBLES at 0759 CC: [id number] DICTATION DATE: 03/01/18 1338 FIRESTOPPER INSTALLER: 03/01/18 1440 ADM IN [place] [id number] [place] [address]
--- NOTE | ~2018-01-25 | PN ---
PATIENT:LOPEZ CASAREZ MEDICAL RECORD: [id number] LOCATION:.[facility] D.230 ADMISSION DATE: 01/27/18 PROGRESS NOTE DATE OF SERVICE: 03/02/2018 SUBJECTIVE: This is a 67-year-old female who was admitted with severe hypoxic respiratory failure with pulmonary edema. The patient was placed on BiPAP without improvement and required 100% FiO2. Hypoxemia was intubated. The patient's oxygen requirement has improved, but chest x-ray has not improved. Her intake and output showed more retain fluids. She has also showed weight gain of about 13 pounds since admission. PHYSICAL EXAMINATION: GENERAL: Reveals an elderly female who is in no acute distress on sedation on ventilator. VITAL SIGNS: The patient is afebrile, heart rate of 68, respiratory rate of 14, blood pressure 103/59. Oxygen saturation is 50%. SHEENT: Unremarkable. Pupils are equal and reactive. NECK: Supple. There is no adenopathy. Trachea is midline. CHEST: Showed some mild rales. There is no accessory muscle use. HEART: Shows no jugular venous distention, murmur or gallops. ABDOMEN: Benign with no tenderness. EXTREMITIES: Shows no clubbing, cyanosis or edema. LABORATORY DATA: Show white count 11.4, hemoglobin 8.7, platelet count 79,000. Arterial blood gas: pH of 7.48, pCO2 of 49, and pO2 of 45 on 50% FiO2. Chest x-ray showed pulmonary edema and possible ARDS. ASSESSMENT: 1. Acute respiratory failure with hypoxemia and hypercapnia, probably secondary to ARDS. 2. Volume overload. 3. Acute renal failure. 4. Anemia. 5. Thrombocytopenia. DISCUSSION: NEUROPSYCHIATRY: The patient had a stroke in the past. She is awake, alert, responsive. She has some tracking of person at home as well as the who is a bedside. CARDIOVASCULAR: There are no issues. The patient may need echocardiogram. PULMONARY AND RESPIRATORY: The patient is on the ventilator with pulmonary edema. Diuresis and also do weaning protocol today. PLAN: 1. Lasix to weaning protocol off sedation. 2. Monitor CBC and electrolytes. TRANSINT:[id number] Voice Confirmation ID: [id number] DOCUMENT ID: [id number] PROGRESS NOTE [id number] LOPEZ CASAREZ CORNELL ROBLES at 0758 CC: [id number] DICTATION DATE: 03/02/18 1130 PEER SPECIALIST: 03/02/18 1308 ADM IN [facility] [address] [place] [id number]
--- NOTE | ~2018-01-25 | PN ---
PATIENT:LOPEZ CASAREZ MEDICAL RECORD: [id number] LOCATION:D.ICU D.230 ADMISSION DATE: 01/27/18 PROGRESS NOTE DATE OF SERVICE: 03/19/2018 SUBJECTIVE: This is a 67-year-old female who was admitted with acute respiratory failure with hypoxia. The patient was tried on BiPAP with no significant improvement. The patient was intubated. She was noted on admission to have acute kidney injury. Dialysis catheter was placed and has been dialyzed. Repeat chest x-ray shows bilateral pneumonia. Bronchoscopy showed MRSA. The patient had dialysis yesterday and is reported to have dialysis today. The patient was initially admitted for fractured distal end of the right fibula. This was repaired. She had ischemic right anterior cerebral artery stroke and left anterior cerebral artery stroke. Also had dependent edema. 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 PHYSICAL EXAMINATION: GENERAL: Reveals an elderly female who is awake and on ventilator. VITAL SIGNS: Temperature 98.6, heart rate was 65, respiratory rate of 18, blood pressure 154/56. HEENT: Unremarkable. NECK: Supple. There is no adenopathy. Trachea is midline. CHEST: She has some mild basilar crackles. CARDIAC: No jugular venous distention, murmur or gallops. ABDOMEN: Benign. EXTREMITIES: No clubbing, cyanosis, or edema. LABORATORY DATA: White count of 5.8, hemoglobin 8.4, platelet count is 25,000. Arterial blood gas pH 7.36, pCO2 of 35, pO2 of 59, bicarbonate is 19.4; that is on 50%. Chemistry is remarkable for potassium of 3.4, sodium of 131, carbon dioxide is 27, alubmin 1.5. ASSESSMENT: 1. Acute respiratory failure and hypoxemia. The patient is on ventilator, this is probably secondary to pneumonia and volume overload with kidney injury. 2. Bilateral pneumonia, secondary to methicillin-resistant Staphylococcus aureus. 3. 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 4. Acute kidney injury, on hemodialysis, followed by nephrology. DISCUSSION: 1. Neuropsychiatric: There are no focal signs. The patient is awake, on Precedex. 2. Cardiovascular: No issues. Heart rate is within normal limits. Blood pressure is within normal limits. 3. Pulmonary and respiratory: The patient has pneumonia, is on mechanical ventilation. She is on bronchodilators as well as mucolytics. 4. Infectious disease: The patient is on vancomycin and meropenem. 5. Gastrointestinal and dietary: The patient is on tube feedings. 6. Renal and metabolic: The patient has mild hyponatremia and has increasing urinary output of 750 in the last 24 hours. PLAN: PROGRESS NOTE [id number] LOPEZ CASAREZ 1. Continue ventilator support. 2. Mucolytics. 3. Continue antibiotics. 4. Dialysis today. 5. Continue argatroban. Discussed with family, nurse and respiratory therapist. TRANSINT:[id number] Voice Confirmation ID: [id number] DOCUMENT ID: [id number] CORNELL ROBLES at 0942 CC: [id number] DICTATION DATE: 03/19/18 08 SOCIAL AND POLITICAL STUDIES PROFESSOR: 03/19/18 1320 ADM IN [facility] [address] [place] [id number]
--- NOTE | ~2018-01-25 | OP ---
PATIENT NAME: LOPEZ CASAREZ MEDICAL RECORD: [id number] :52 LOCATION:D[facility].2212 ADMISSION DATE:01/27/18 SURGEON: ALAN FARIAS DO DATE OF OPERATION: 01/28/2018 PROCEDURE PERFORMED: Right ankle open reduction internal fixation. PREOPERATIVE DIAGNOSIS: Right bimalleolar ankle fracture. POSTOPERATIVE DIAGNOSIS: Right bimalleolar ankle fracture. INDICATIONS: Ms. Casarez is a 67-year-old female who was found on the floor of the bathroom a few days ago, not knowing what happened. She usually does not ambulate much. According to her , he came home and found her on the floor and she was complaining of her ankle hurting. She was brought to the ER and seen to have a bimalleolar ankle fracture. She was admitted due to some medical issues and I was asked to see her while in the hospital and is scheduled the surgery for today. We had a long discussion with her and her about operative treatments as well as the risks and benefits of the procedure including nerve damage to the superficial peroneal nerve, which would cause numbness on top of the foot and need for further surgery, infection, bleeding and DVT. We discussed DVT prophylaxis as well. After knowing all the risks and benefits, the patient desired to proceed forward with the procedure: SURGEON: Alan Farias DO DESCRIPTION OF PROCEDURE: The patient received a block in the preoperative area by anesthesia, was taken to the operative suite, laid in supine position, given general anesthetic, given 2 grams Ancef preoperatively. The right lower extremity was then prepped and draped in a sterile fashion with a tourniquet above the knee under the drapes. Once this was prepped and draped, a timeout was performed and everyone was in agreement with the correct side, site, and patient. The medial side was addressed first and 2 guidewires or K-wires were used to get a good reduction of the medial malleolus confirmed on AP, mortise and lateral and two 40-mm partially threaded cannulated screws were then used. A 4.0 cannulated screws were used to secure the medial malleolus piece. Once this was done, the guidewires were removed and the attention was drawn to the lateral side. The tourniquet had been inflated prior to the surgery and was up at 350 mmHg and was up for a total of 47 minutes during the surgery. After the medial side was completed, the lateral side was addressed and the incision was marked out along the fibula and careful dissection was made down to the fibula itself. The fracture was reduced, held with a Hohmann and then a plate was put on and 2 pins were put into plate to hold it, first with a shaft screw in proximally and then locked distally. Four locking screws were put in distally and 3 shaft screws were put in proximally and then a syndesmotic TightRope was put in due to the fact she is diabetic and she had some syndesmotic widening for a more secure fixation. Once this was done, the syndesmotic clamp was used and the TightRope was tightened, seemed to close down the ankle very well. Then, the ends were cut. The tourniquet was then let down at 47 minutes and the wound was closed with 2-0 Vicryl in an inverted interrupted fashion on the lateral side. On the medial side, the poke holes that had been made for the cannulated screws, were closed with 4-0 Monocryl. Then, on the lateral side after the 2-0 Vicryl, the ZipLine was placed over it. Adaptic, 4 x 4s, ABDs were then placed on the wound. A Webril and then a splint along the posterior aspect of the lower extremity was put into place with Pastor wrap to secure it. Blood loss was OPERATIVE REPORT [id number] LOPEZ CASAREZ. COMPLICATIONS: None. TRANSINT:[id number] Voice Confirmation ID: [id number] DOCUMENT ID: [id number] ALAN FARIAS DO at 1828 CC: [id number] DICTATION DATE: 01/28/18 1448 ROLLER PAINTER: 01/28/18 1533 ADM IN [facility] [address] [place] [address]
--- NOTE | ~2018-01-25 | PN ---
PATIENT:LOPEZ CASAREZ MEDICAL RECORD: [id number] LOCATION:.[facility] D.230 ADMISSION DATE: 01/27/18 PROGRESS NOTE DATE OF SERVICE: 03/05/2018 HISTORY: This is a 67-year-old female who was admitted with ankle fracture. The patient was noted to have diffuse anasarca with low platelet count. She also had left hand contusion, ecchymosis, limited range of motion. The patient developed acute respiratory failure with hypoxemia. BiPAP was used, but did not improve and was subsequently intubated. Has had heparin-induced thrombocytopenia, has been on Solu-Medrol, has also been on argatroban. Her platelet count has begun to improve. Petechia is non-blanching. The patient's blood gas on ventilator has improved and has had dependent edema on x-ray. There is no fever or chills. There is no nausea or vomiting. PHYSICAL EXAMINATION: VITAL SIGNS: Temperature 99, heart rate of 92, respiratory rate of 20, blood pressure 160/57, saturation is 92%. SHEENT: Unremarkable. NECK: Supple. No adenopathy. Trachea is midline. There is no thyromegaly. CHEST: Shows some mild rales. There are no crackles or wheezes. There is no accessory muscle use. CARDIAC: Shows no jugular venous distention, murmur or gallops. ABDOMINAL: Benign. EXTREMITIES: Shows no clubbing, cyanosis or edema. LABORATORY AND DIAGNOSTIC DATA: Chest x-ray with increased perihilar edema, possible underlying pneumonia. Her white count is 13.3, hemoglobin 8.1 and platelet count is 62. She has blood gas; pH of 7.46, pCO2 of 45, pO2 of 61 on 40%. She is remarkable for sodium of 151, potassium 3.7, creatinine is 1.9, BUN is 117. ASSESSMENT AND PLAN: 1. Pulmonary edema, possible intravascular depletion. The patient's sodium level is increasing with hypernatremia. This may need to be held at this time. 2. Acute respiratory failure with hypoxia. The patient is on ventilator and oxygen requirement is improving. 3. Acute renal failure, has azotemia, BUN of 117. 4. Right ankle fracture status post open reduction and internal fixation. 5. Heparin-induced thrombocytopenia syndrome. 6. Hypernatremia, probably from intravascular depletion. DISCUSSION: 1. NEUROLOGY AND PSYCHIATRY: The patient's mental status has not changed as per metabolic abnormalities. 2. CARDIOVASCULAR: Chest x-ray report of congestive heart failure. 3. RESPIRATORY: The patient has possible pneumonia with pulmonary edema in the perihilar area. The patient is on mechanical ventilation. 4. GASTROINTESTINAL AND DIETARY: The patient is on tube feeding. Has mild anemia, possibly from gastrointestinal or chronic disease. PLAN: 1. Weaning protocol this morning. Hold Lasix. At this time, probably the patient may need free water. PROGRESS NOTE [id number] LOPEZ CASAREZ 2. Monitor CBC and thrombocytopenia. Total time spent is 38 minutes. Discussed with nurse, respiratory therapist and family at the bedside. TRANSINT:[id number] Voice Confirmation ID: [id number] DOCUMENT ID: [id number] CORNELL ROBLES at 0819 CC: [id number] DICTATION DATE: 03/05/18 1005 GRANITE SETTER: 03/05/18 1256 ADM IN [place] [id number] [place] [id number]
--- NOTE | ~2018-01-25 | PN ---
PATIENT:LOPEZ CASAREZ MEDICAL RECORD: [id number] LOCATION:.[facility] D.230 ADMISSION DATE: 01/27/18 PROGRESS NOTE DATE OF SERVICE: 03/20/2018 SUBJECTIVE: This is a 57-year-old female. The patient was admitted with severe respiratory failure with hypoxemia. Chest x-ray suggested ARDS. She was tried on BiPAP initially, but failed, had to be intubated. The patient was noted to have acute kidney injury, has been having dialysis. Subsequent chest x-ray showed bilateral pneumonia. Bronchoscopy showed Enterobacter and Staph aureus. The patient has also had thrombocytopenia, felt to be due to HIT syndrome. The patient had an uneventful night. She is awake. is at bedside. PHYSICAL EXAMINATION: GENERAL: Reveals an awake female, on the ventilator. VITAL SIGNS: Temperature 98.4, heart rate of 80, respiratory rate of 18, and blood pressure 144/51. SHEENT: Unremarkable. The patient is normocephalic. Pupils are equal and reactive. Extraocular muscles are intact. Nares normal. NECK: Supple. There is no tenderness. There is no adenopathy. Trachea is midline. CHEST: Shows some mild crackles. No accessory muscle use. CARDIAC: Shows no jugular venous distention, murmur, or gallop. ABDOMEN: Benign. There is no tenderness, no masses, and no distention. EXTREMITIES: Show no clubbing, cyanosis, or edema. LABORATORY DATA: Showed white count is 6.1, hemoglobin 8.5, platelet count is 26,000. Blood gas; pH 7.42, pCO2 of 40, and pO2 of 102 on 60%. Chemistries remarkable for potassium of 3.2, creatinine is 1.7, BUN 64. DIAGNOSTIC DATA: Chest x-ray showed more improvement of bilateral pneumonia and bilateral pleural effusions. ASSESSMENT: 1. Acute respiratory failure with hypoxia. 2. Bilateral pneumonia secondary to Enterobacter and methicillin-sensitive Staph aureus. 3. Acute kidney injury, requiring dialysis. 4. Bilateral pleural effusions. DISCUSSION: NEUROPSYCHIATRY: There is no focal sign. The patient's mental status is decreased secondary to sedation. CARDIOVASCULAR: There are no issues at the present time. PULMONARY/RESPIRATORY: The patient is on bronchodilators, mechanical ventilation. Also on Mucomyst and prednisone. We will start tapering prednisone off and stop Mucomyst. GASTROINTESTINAL/DIETARY: The patient is on tube feeding. RENAL/METABOLIC: The patient has hypokalemia as well as has acute renal injury. PLAN: 1. Mechanical ventilation. 2. Taper off Solu-Medrol. 3. Stop Mucomyst. PROGRESS NOTE [id number] LOPEZ CASAREZ 4. Wean off ventilator as tolerated. TRANSINT:[id number] Voice Confirmation ID: [id number] DOCUMENT ID: [id number] CORNELL ROBLES at 0809 CC: [id number] DICTATION DATE: 03/20/18 1034 SHOE PLANNER: 03/20/18 1605 ADM IN [facility] [address] [place] [id number]
--- NOTE | ~2018-01-25 | PN ---
PATIENT:LOPEZ CASAREZ MEDICAL RECORD: [id number] LOCATION:D.[facility] D.230 ADMISSION DATE: 01/27/18 PROGRESS NOTE DATE OF SERVICE: 03/18/2018 SUBJECTIVE: This is a 67-year-old female who was admitted for acute respiratory failure with hypoxemia. The patient was also noted to have acute renal failure. She had diffuse infiltrates, felt to be due to ARDS. The patient has had dialysis and there was underlying pneumonia. Bronchoscopy showed MRSA and Enterobacter cloacae complex. The patient has been on antibiotics. She is currently on hemodialysis. The patient is awake and alert and tracks. There is no fever or chills. PHYSICAL EXAMINATION: GENERAL: Reveals an elderly female who is in no acute distress. VITAL SIGNS: Temperature 98.4, heart rate of 70, respiratory rate of 19, blood pressure 160/60. SHEENT: Unremarkable. NECK: Supple. There is no adenopathy. Trachea is midline. CHEST: Shows mild to moderate basilar crackles. There is no chest wall tenderness. HEART: Shows no jugular venous distention, murmur or gallops. ABDOMEN: Benign. There is no tenderness. EXTREMITIES: Shows no clubbing, cyanosis or edema. LABORATORY DATA: Showed white count 6.5, hemoglobin 8.9, and platelet count is 21,000. Arterial blood gas: pH 7.36, pCO2 of 35, and pO2 of 59 on 50%. Chemistry: Sodium is 128, potassium 4.8, carbon dioxide is 20, creatinine is 3.8, BUN is 128. Chest x-ray showed multifocal infiltrates and consolidation in right lower lobe. ASSESSMENT: 1. Acute respiratory failure with hypoxemia. 2. Pneumonia secondary to MRSA and Enterobacter. She is currently on antibiotics. Vancomycin level 24. 3. 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 4. Anemia secondary to occult GI bleed. 5. Acute renal failure, probably on chronic renal failure. The patient is on hemodialysis. 6. Hyponatremia. DICUSSION: NEUROPSYCHIATRY: The patient is awake and tracks, moves all extremities. No focal signs. Mental status is improved with Precedex. CARDIOVASCULAR: There are no present issues. PULMONARY AND RESPIRATORY: The patient has multifocal pneumonia and right lower lobe consolidation. She has increasing FiO2 from 50% to 60% probably because of increased edema. The patient is to have dialysis today. RENAL AND METABOLIC: The patient has renal failure, on dialysis. She also has hyponatremia. She has severe hypoalbuminemia. GASTROINTESTINAL AND DIETARY: The patient is on tube feeding. There is no nausea, vomiting or abdominal pain. PLAN: PROGRESS NOTE [id number] LOPEZ CASAREZ 1. Continue antibiotics. 2. Send sputum for cultures. 3. Hemodialysis today. TRANSINT:[id number] Voice Confirmation ID: [id number] DOCUMENT ID: [id number] CORNELL ROBLES at 1059 CC: [id number] DICTATION DATE: 03/18/18900 LOCAL TRUCK DRIVER: 03/18/18 1049 ADM IN [facility] [address] [place] [address]
--- NOTE | ~2018-01-25 | PN ---
PATIENT:LOPEZ CASAREZ MEDICAL RECORD: [id number] LOCATION:D.[facility] D.230 ADMISSION DATE: 01/27/18 PROGRESS NOTE DATE OF SERVICE: 03/06/2018 SUBJECTIVE: This is a 67-year-old female who was admitted for right ankle fracture, post fall, and had open reduction internal fixation. She also had diffuse anasarca and had thrombocytopenia. She had ecchymosis. The patient had hypoxemic respiratory failure. She was placed on BiPAP with no significant improvement. She had desaturations at 100%, was intubated. She had perihilar pneumonia and edema. The patient has been on a ventilator since Wednesday, 6 days ago. She has done well with weaning but not extubated. 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 This morning, her hemoglobin was decreased about 3 units with no obvious bleeding site. Argatroban was held this morning. Blood transfusion ordered and the patient is scheduled to have nuclear med bleeding scan. There are no fevers or chills. The patient is sedated on the ventilator. No complaints at this time. PHYSICAL EXAMINATION: GENERAL: Reveals a pale elderly woman, who is in no acute distress. VITAL SIGNS: Temperature 99, heart rate of 78, respiratory rate of 14, blood pressure of 138/54, saturation of 90% on 40% FiO2. SHEENT: The patient is pale. Pupils are equal and reactive. NECK: Supple. There is no adenopathy. Trachea is midline. CHEST: Shows some mild rales. There is no accessory muscle use. There is good air flow bilaterally. CARDIAC: Shows no jugular venous distention, murmur, or gallop. ABDOMEN: Benign with no tenderness or distention. EXTREMITIES: Show no clubbing, cyanosis, or edema. LABORATORY DATA: CBC; 8.7, hemoglobin 5.7, hematocrit of 18.8, platelet count is 62,000. Arterial blood gas; pH 7.39, pCO2 of 50, and pO2 of 73 on SIMV of 60%. INR is 7. Fibrinogen is 462. D-dimer is 2.5. DIAGNOSTIC DATA: Chest x-ray is pending. ASSESSMENT AND PLAN: 1. Acute respiratory failure, hypercapnia, and hypoxia. The patient is on ventilator. Gas exchange appears to be mildly decreased. We will obtain chest x-ray and review today. 2. Anemia, most likely GI bleed. The patient has had history of GI bleed. She is held on argatroban and INR is elevated. We will obtain GI scan with nuclear med. 3. Pneumonia. The patient is on antibiotics. 4. Acute kidney disease with ischemia. 5. Hypernatremia. The patient will need free water. 6. HIT syndrome. The patient is on argatroban, which is held today. This is because of bleeding. 7. Iron-deficiency anemia. DISCUSSION: NEUROPSYCHIATRY: The patient's mental status is decreased on sedation. There are no focal signs. There is prior history of stroke. CARDIOVASCULAR: The patient has no issues. The patient has pneumonia and PROGRESS NOTE [id number] LOPEZ CASAREZ edema. The patient had hypernatremia suggestive of intravascular depletion. She has also had peripheral edema. We will hold off on free water. The patient needs blood transfusion at this time. GASTROINTESTINAL: The patient is on tube feeding. PULMONARY/RESPIRATORY: The patient is on a ventilator. Evaluate chest with chest x-ray. The patient has good air flow bilaterally. PLAN: 1. Recommend GI bleeding scan. Ventilator support. Chest x-ray. 2. Blood transfusions to keep hemoglobin above 7. 3. Ventilator support. Hold weaning today and start again tomorrow. 4. Hold argatroban. TIME SPENT: 40 minutes. We discussed with nurse, respiratory therapist, and . TRANSINT:[id number] Voice Confirmation ID: [id number] DOCUMENT ID: [id number] CORNELL ROBLES at 0801 CC: [id number] DICTATION DATE: 03/06/18 1044 RN PAIN MANAGEMENT: 03/06/18 1754 ADM IN [facility] [address] [place] [address]
--- NOTE | ~2018-01-25 | PN ---
PATIENT:LOPEZ CASAREZ MEDICAL RECORD: [id number] LOCATION:D.[facility] D.230 ADMISSION DATE: 01/27/18 PROGRESS NOTE DATE OF SERVICE: 03/14/2018 SUBJECTIVE: This is a 67-year-old female who was admitted with chronic renal failure as well as thrombocytopenia, possibly from HIT syndrome. The patient has been on a good regimen and has some bleeding. The patient's platelet count has slowly improved. The patient has been on dialysis with significant improvement. Arterial blood gases have some mild improvement. The patient is currently on the ventilator, sedated and also had hyponatremia, which is improving. There is no fever or chills. PHYSICAL EXAMINATION: GENERAL: Reveals well-developed, well-nourished female, who is in no acute distress. VITAL SIGNS: Temperature 99.1, heart rate of 82, respiratory rate of 14, blood pressure 151/59. SHEENT: Unremarkable. NECK: Supple. No adenopathy. Trachea is midline. There is no thyromegaly. There is no adenopathy. CHEST: Clear, symmetric. There are no wheezes. There are no crackles. HEART: Shows no jugular venous distention, murmur or gallops. ABDOMEN: Benign. EXTREMITIES: Shows no clubbing, cyanosis or edema. NEUROLOGIC: Intact. LABORATORY DATA: CBC: Show white count 3.8, hemoglobin 7.8, platelet count is 37,000. Arterial blood gas: pH 7.34, pCO2 of 36 and pO2 of 93 on 35% assist control. Chemistries remarkable for sodium of 131, potassium 3.6, creatinine is 3.7, BUN is 117. DISCUSSION: NEUROPSYCHIATRY: The patient has no focal deficits. MENTAL STATUS: The patient is sedated on the ventilator. CARDIOVASCULAR: There are no issues. PULMONARY AND RESPIRATORY: The patient is on mechanical ventilation and serial bronchodilators. RENAL AND METABOLIC: The patient is on dialysis Wednesday, Wednesday and Wednesday. Has had mild hyponatremia. Mild metabolic acidosis. GASTROINTESTINAL AND DIETARY: The patient is on tube feeding. PLAN: 1. Continue bronchodilators. 2. Continue mechanical ventilation. 3. Monitor blood gas in the morning. TRANSINT:[id number] Voice Confirmation ID: [id number] DOCUMENT ID: [id number] PROGRESS NOTE [id number] LOPEZ CASAREZ CORNELL ROBLES at 0824 CC: [id number] DICTATION DATE: 03/14/18 0941 ELIGIBILITY ANALYST: 03/14/18 1118 ADM IN [place] [id number] [place] [id number]
--- NOTE | ~2018-01-25 | MORECARE ---
CASE MANAGEMENT DISCHARGE SUMMARY PATIENT: LOPEZ CASAREZ UNIT: [id number] ADM DATE: 01/27/18 AGE: 67 : 54 SEX: F ROOM/BED: D.2304 AUTHOR: CASE, RECORDS TECH PHYSICIAN: REFERRING PHYSICIAN: DK GILMORE MD DATE OF SERVICE: 01/27/18 Discharge Plan Patient Name: LOPEZ CASAREZ Facility: [facility]:[place] : 1950 Planned Disposition: [facility] Facility Anticipated Discharge Date: Discharge Date: Expected LOS: Initial Reviewer: [email or web address] Initial Review Date: 02/01/2018 Generated: 02/25/18 11:59 am Comments DCP- Discharge Planning Updated by [email or web address]: Genie Ronquillo on 02/25/18 9:[address] CM spoke with [facility][1] update given of patient current status. [facility][1] requested update when closer to discharge. CM will continue to follow and assist in discharge planning as needed. DCP- Discharge Planning Updated by [id number]: Elo Jackson on 02/03/18 9:[address] Dr Gilmore to let him know that [facility] when patient is ready to be transferred DCP- Discharge Planning Updated by [email or web address]: Elo Jackson on 02/01/18 3:[address] PATIENT HAS BEEN ACCEPTED TO THE [facility] WHEN SHE IS MEDICALLY STABLE TO TRANSFER, SHE WILL BE GOING TO A SKILLED BED DCP- Discharge Planning Updated by [email or web address]: Elo Jackson on 02/01/18 10:[address] Patient Name: LOPEZ CASAREZ Admission Status: ER Accout number: [id number] Admission Date: 01-27-2018 : 1950 Admission Diagnosis:DISPLACED BIMALLEOLAR FRACTURE OF RIGHT LOWER LEG, INIT Attending: DK GILMORE Current LOS: 5 Anticipated DC Date: Planned Disposition: [facility] Facility Primary Insurance: MEDICARE A & B Discharge Planning Comments: CM met with to assess discharge planning needs. The patient was asleep and would not open eyes for interview. stated that prior to this hospitalization the patient was partially dependent. He has to help her with her baths. He had requested grab bars in the shower, but the apartment complex would not put them in (per ) Patient has a walker at home. They live in [facility] [place]. would like the patient to go to the [facility][1], ESTELA signed IMM also given. Will send clinical info to [place] with the [facility][1]. CM will continue to follow and assist with DC planning. PCP: Mando Brooke [facility] [address] [phone] Cloth Drier: Elo Jackson DCPIA - Discharge Planning Initial Assessment Updated by [email or web address]: Elo Jackson on 02/01/18 11:23 am * Is the patient Alert and Oriented? Yes * How many steps to enterexit or inside your home? * PCP MANDO * Pharmacy [facility] [address] * Preadmission Environment Home with Family * ADLs Partial Dependent * Partial ADLs (Assistance needed) Bathing * Equipment Rolling Walker * List name and contact numbers for known caregivers / representatives who currently or will assist patient after discharge: BEAU () [phone] * Verbal permission to speak to the caregivers and representatives has been obtained from the patient. Yes * Community resources currently utilized None * Additional services required to return to the preadmission environment? Yes * Can the patient safely return to the preadmission environment? No * Has this patient been hospitalized within the prior 30 days at any hospital? No External Providers External Provider: [facility] [place] Next Contact Date: Service Request Date: Service Type: Resolution: Reviewer: Comments: Coverage Notice Reviewer: [email or web address] Sumeet Jackson Notice Issued Date-Time: 02/01/2018 11:00 Notice Type: IM Discharge Notice Notice Delivered To: Family Member Relationship to Patient: Spouse Aboriginal Education Worker Coordinator Name: BEAU CASAREZ Delivery Method: HAND - Hand Delivered Jana Days: Prior Verbal Notification: Recipient Understood Notice: Yes Recipient Signature: Yes Med Rec Note Co-signed by Attending: Coverage Notice Comment: Reviewer: [email or web address] Sumeet Jackson Notice Issued Date-Time: 02/11/2018 11:40 Notice Type: IM Discharge Notice Notice Delivered To: Patient Relationship to Patient: Aboriginal Education Worker Coordinator Name: Delivery Method: HAND - Hand Delivered Jana Days: Prior Verbal Notification: Recipient Understood Notice: Yes Recipient Signature: Yes Med Rec Note Co-signed by Attending: Coverage Notice Comment: Reviewer: [email or web address] - Deborah Grantmel Notice Issued Date-Time: 02/14/2018 7:34 Notice Type: IM Discharge Notice Notice Delivered To: Patient Relationship to Patient: Aboriginal Education Worker Coordinator Name: Delivery Method: HAND - Hand Delivered Jana Days: Prior Verbal Notification: Recipient Understood Notice: Yes Recipient Signature: Med Rec Note Co-signed by Attending: Coverage Notice Comment: VERBAL OK - COULD NOT WRITE Patient Name: LOPEZ CASAREZ Page [phone] All edits/amendments must be made on the electronic document DICTATION DATE: 02/25/181057 RN LAB: 02/25/181057 RPT#: [id number] DC DATE: STATUS: ADM IN [facility] [address] [place] [address] END OF REPORT
--- NOTE | ~2018-01-25 | PN ---
PATIENT:LOPEZ CASAREZ MEDICAL RECORD: [id number] LOCATION:D.[facility] D.230 ADMISSION DATE: 01/27/18 PROGRESS NOTE DATE OF SERVICE: 03/17/2018 SUBJECTIVE: This is a 67-year-old female who was admitted with severe respiratory failure with hypoxemia. The patient was felt to have ARDS and acute renal failure. The patient was subsequently intubated. She has had hemodialysis. The patient had multifocal pneumonia. Bronchoscopy showed Enterobacter cloacae complex and Staphylococcus aureus. The patient has been on antibiotics; cefepime and vancomycin. 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 She has been on argatroban. She has had anemia requiring transfusion. PHYSICAL EXAMINATION: GENERAL: Reveals an elderly female who is in no acute distress. VITAL SIGNS: Temperature 98.4, heart rate of 72, respiratory rate of 12, blood pressure 164/63, saturation 94%. SHEENT: Unremarkable. NECK: Supple. There is no stridor. There is no air leak. Trachea is midline. There is no adenopathy. There is no thyromegaly. CHEST: Shows some mild crackles bilaterally. CARDIAC: Shows no jugular venous distention. No murmur, rub or gallop. ABDOMEN: Benign. There is no tenderness. EXTREMITIES: Shows no clubbing, cyanosis or edema. LABORATORY DATA: Showed white count 7.3, hemoglobin 9.4 and platelet count of 17,000. Arterial blood gas: pH 7.35, pCO2 37, pO2 of 68, bicarb 20.5, on 50%. Chest x-ray from yesterday showed multilobar infiltrate and right lower lobe consolidation. There is a right pleural effusion increasing. ASSESSMENT AND PLAN: 1. Acute respiratory failure with hypoxemia. 2. Multilobar pneumonia with methicillin-sensitive staphylococcus aureus. The patient is on vancomycin and cefepime. White count is within normal limits. 3. Acute respiratory failure, on hemodialysis. 4. 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 5. Anemia secondary to acute disease and GI bleed. DISCUSSION: 1. Neuropsychiatric: The patient is on less sedation, opens eyes, and appears to be tracking. There are no focal signs. 2. Cardiovascular: Had no current issues. 3. Pulmonary/respiratory: The patient has pneumonia, respiratory failure, on some bronchodilators, antibiotics, mechanical ventilation. 4. Gastrointestinal/dietary: The patient is on tube feeding. The patient has occult blood loss from the GI. PLAN: 1. Continue antibiotics. 2. Mechanical ventilation. 3. Argatroban for RUBINA syndrome. PROGRESS NOTE [id number] LOPEZ CASAREZ TRANSINT:[id number] Voice Confirmation ID: [id number] DOCUMENT ID: [id number] CORNELL ROBLES at 1815 CC: [id number] DICTATION DATE: 03/17/18 09 PAYROLL OFFICER: 03/17/18 1404 ADM IN [place] [id number] [place] [address]
--- NOTE | ~2018-01-25 | HP ---
PATIENT: LOPEZ CASAREZ MEDICAL RECORD: [id number] ACCOUNT: [id number] LOCATION:D.[facility] : [birth year] ADMISSION DATE: 01/26/18 HISTORY AND PHYSICAL EXAMINATION DATE OF ADMISSION: 01/26/2018 REASON FOR ADMISSION: Hypersomnolent with mental status change. HISTORY OF PRESENT ILLNESS: Ms. Casarez is a 67-year-old female who was brought in to the Emergency Room after she fell in her bathroom on 01/25/2018. She is complaining of pain around the right ankle. She had swelling there as well. Workup in the Emergency Room showed a venous Doppler ultrasound of the right leg, negative for DVT. X-ray of the ankle showed trimalleolar fracture. X-ray of the foot showed no foot fracture, but did show the same trimalleolar fracture. She was to be discharged from the Emergency Department after the emergency physician spoke with the orthopedist. Patient was given something for pain and nausea and she was hypersomnolent. She is not her normal self. She will be observed at least overnight to see how she does. PAST MEDICAL AND SURGICAL HISTORY: She has a history of diabetes, lymphoma followed by Dr. Farias, lower extremity edema, diastolic congestive heart failure, hypertension, hyperlipidemia, chronic anemia, history of breast cancer, remote CVA, depression, and chronic anasarca. PAST SURGICAL HISTORY: Lung biopsy and mastectomy. SOCIAL HISTORY: She is and retired. ALLERGIES: None. HOME MEDICATIONS: Include gabapentin 600 mg t.i.d., DuoNeb via nebulizer q.i.d. p.r.n., metformin 500 mg twice a day, MiraLax 1 scoop daily p.r.n. constipation, Bumex 1 mg daily. HABITS: She does not smoke, drink or use illicit drugs. FAMILY HISTORY: Father had hypertension and heart disease. Sister with breast cancer. REVIEW OF SYSTEMS: GENERAL: No major weight changes. HEENT: No particular sinus or allergy problems. RESPIRATORY: She uses updrafts. GASTROINTESTINAL: See above history. GENITOURINARY: No significant problems there. MUSCULOSKELETAL: No significant arthritis. NEUROLOGIC: No migraines. No seizures. PSYCHIATRIC: She has had some depression. PHYSICAL EXAMINATION: VITAL SIGNS: Temperature 97.5, pulse 68, respirations 14, and blood pressure 106/44. GENERAL: She is somnolent. She will awaken and barely whisper a few words and she goes right back to sleep. This is not her normal baseline mental status. HISTORY AND PHYSICAL [id number] HERMELINDOLOPEZ LISA HEJEFFERY: Grossly within normal limits. NECK: Supple. No JVD or bruit. HEART: Regular rate and rhythm. LUNGS: Fairly clear. ABDOMEN: Soft. EXTREMITIES: Her right lower extremity, her right foot and ankle are in a boot. Left lower extremity with 1-2+ edema. LABORATORY DATA: CBC with a white count of 5000, hemoglobin 9.3, hematocrit 30.2. Liver functions are all okay. Basic metabolic panel is okay except BUN 40, creatinine 1.3, glucose is 86. D-dimer is 4.63. Venous Doppler ultrasound of the lower extremities is negative for DVT. X-ray of the right ankle shows trimalleolar fracture. X-ray of the foot shows same trimalleolar fracture and nothing more. ASSESSMENT: 1. Trimalleolar fracture. 2. Hypersomnolence with mental status change. 3. History of diabetes. PLAN: We will monitor overnight, we will check her blood sugars. Dr. Barton has been consulted here. Other tests and procedures as warranted. TRANSINT:[id number] Voice Confirmation ID: [id number] DOCUMENT ID: [id number] TERRI LOPEZ MD at 2246 CC: [id number] DICTATION DATE: 01/26/181951 NAIL PROFESSIONAL: 01/26/182141 ADM IN [place] [address] [place] [address]
--- NOTE | ~2018-01-25 | PN ---
PATIENT:LOPEZ CASAREZ MEDICAL RECORD: [id number] LOCATION:D.[facility] D.230 ADMISSION DATE: 01/27/18 PROGRESS NOTE DATE OF SERVICE: 02/28/2018 SUBJECTIVE: This is a 67-year-old old female who has had history of sleep apnea, right ankle fracture with open reduction and internal fixation. She has also had right breast carcinoma with mastectomy, diabetes, anemia, stroke, diastolic congestive heart failure, and hyperlipidemia. The patient was transferred from the floor with acute respiratory failure with hypercapnia and hypoxia. CT scan showed lung nodules and interstitial alveolar infiltrates. The patient was placed on BiPAP and has had progressive hypoxemia, currently requiring 100% FiO2. The patient was intubated this morning with decreased mental status, unresponsiveness, and staring. PHYSICAL EXAMINATION: GENERAL: Reveals an elderly female, who is in no acute distress. VITAL SIGNS: Temperature 98.1, heart rate 101, respiratory rate 28, blood pressure 176/99, saturation 95%. Chest x-ray showed [id number] congestive heart failure, pneumonia, and possible ARDS. CBC showed white count of 18.6, hemoglobin of 10, platelet count is 85,000. Chemistries remarkable for sodium 146, potassium 3.2, creatinine is 1.1, BUN 49, glucose is 218. BNP is 20,886. ASSESSMENT: 1. Acute respiratory failure with hypoxemia due to pulmonary edema, pneumonia, possible metastatic pulmonary nodules. 2. History of breast carcinoma. 3. Coagulopathy. She has no evidence of DVT or PE. 4. Diabetes mellitus type 2. Control is not optimal. 5. Anemia, possibly from chronic disease. 6. Status post open reduction and internal fixation. DISCUSSION: NEUROLOGIC/MENTAL STATUS: Mental status is decreased, but there are no focal deficits. CARDIOVASCULAR: The patient has ischemic cardiomyopathy and very high BNP, suggesting existence of pulmonary edema. PULMONARY/RESPIRATORY: The patient is intubated. Arterial blood gases still exhibit hypoxemia. We will try to increase PEEP to improve oxygenation. GASTROINTESTINAL/DIETARY: The patient will be n.p.o. at this time. Reassess feeding in the morning. PLAN: 1. Vent support. 2. Bronchodilators. 3. Diuresis. TRANSINT:[id number] Voice Confirmation ID: [id number] DOCUMENT ID: [id number] PROGRESS NOTE [id number] LOPEZ CASAREZ CORNELL ROBLES at 0758 CC: [id number] DICTATION DATE: 02/28/18 1458 SUMMER INTERNSHIP: 02/28/18 191 ADM IN [address] [place] [id number]
--- NOTE | ~2018-01-25 | PN ---
PATIENT:LOPEZ CASAREZ MEDICAL RECORD: [id number] LOCATION:D.ICU D.230 ADMISSION DATE: 01/27/18 PROGRESS NOTE DATE OF SERVICE: 03/04/2018 SUBJECTIVE: This is a 67-year-old female who has had pneumonia with severe hypoxemic respiratory failure. The patient was tried on BiPAP without improvement and was intubated. The patient has done well oxygen calderon. She has had no fever or chills. She has also tolerated weaning daily. PHYSICAL EXAMINATION: GENERAL: Reveals an elderly female who is in no acute distress. VITAL SIGNS: Temperature 99.1, heart rate of 75, respiratory rate of 20, blood pressure 150/63. SHEENT: Unremarkable. NECK: Supple. Trachea is midline. No thyromegaly. CHEST: Shows basilar crackles, no wheezes. HEART: Shows no jugular venous distention, murmur or gallops. ABDOMEN: Benign without any tenderness. EXTREMITIES: Shows no clubbing, cyanosis or edema. LABORATORY DATA: Showed white count of 13.5, hemoglobin 8.9, and platelet count is 62,000. Arterial blood gas: pH 7.46, pCO2 of 44, and pO2 of 64. Chemistry is remarkable for sodium of 147, creatinine is 1.8. Chest x-ray showed basilar infiltrates. ASSESSMENT AND PLAN: 1. Acute respiratory failure with hypoxemia. 2. Pneumonia, probably aspiration. 3. Acute kidney injury. 4. Anemia. 5. Thrombocytopenia, which may be due to infection. DISCUSSION: 1. Neuropsychiatric: The patient has no focal signs. The patient is currently sedated. 2. Diabetes mellitus. 3. History of stroke. 3. Ascites, which is chronic. 4. Cardiovascular: There are no issues. 5. The patient has pneumonia, possibly airway disease, probably chronic. There is no documentation of cardiac disease. 6. Gastrointestinal and dietary: The patient is tolerating tube feeding. PLAN: 1. Weaning protocol. 2. Change antibiotics. 3. Procalcitonin in the morning. TRANSINT:[id number] Voice Confirmation ID: [id number] DOCUMENT ID: [id number] PROGRESS NOTE [id number] LOPEZ CASAREZ CORNELL ROBLES at 0814 CC: [id number] DICTATION DATE: 03/04/18 1102 AIR QUALITY INSTRUMENT SPECIALIST: 03/04/18 1222 ADM IN [facility] [address] [place] [id number]
--- NOTE | ~2018-01-25 | OP ---
PATIENT NAME: LOPEZ CASAREZ MEDICAL RECORD: [id number] :54 LOCATION:D.[facility] D.2304 ADMISSION DATE:01/27/18 SURGEON: QUYEN FINN MD DATE OF OPERATION: 03/08/2018 PREOPERATIVE DIAGNOSES: 1. Acute kidney injury. 2. Acute respiratory failure, on the ventilator. 3. Hypertension. 4. Hypernatremia. 5. Hyperkalemia. 6. Anemia. 7. Diabetic gastroparesis. 8. Diabetes mellitus. POSTOPERATIVE DIAGNOSES: 1. Acute kidney injury. 2. Acute respiratory failure, on the ventilator. 3. Hypertension. 4. Hypernatremia. 5. Hyperkalemia. 6. Anemia. 7. Diabetic gastroparesis. 8. Diabetes mellitus. PROCEDURE: Right subclavian vein 15-cm Trialysis catheter placement. SURGEON: Quyen Finn MD REPORT OF PROCEDURE: The patient's right neck was prepped and draped in sterile fashion. Using ultrasound guidance, a needle was used to cannulate the right internal jugular vein and a guidewire was advanced with ease. Over this wire, dilator was placed followed by the Trialysis catheter. The catheter aspirated nonpulsatile dark blood and flushed easily in all 3 ports. This was sutured into place with 3-0 nylons and dressed appropriately. COMPLICATIONS: None. CONDITION: Stable. ANESTHESIA: General endotracheal. BLOOD LOSS: 30 mL. TRANSINT:[id number] Voice Confirmation ID: [id number] DOCUMENT ID: [id number] QUYEN FINN MD at 1110 CC: [id number] DICTATION DATE: 03/08/18 1645 MARKETING ENGINEER: 03/08/18 1726 ADM IN [place] [id number] [place] [id number]
--- NOTE | ~2018-01-25 | PN ---
PATIENT:LOPEZ CASAREZ MEDICAL RECORD: [id number] LOCATION:.[facility] D.230 ADMISSION DATE: 01/27/18 PROGRESS NOTE DATE OF SERVICE: 03/16/2018 SUBJECTIVE: This is a 67-year-old female who was admitted with hypoxemic respiratory failure. The patient's x-ray appeared to be ARDS, diffuse pneumonia. Also had acute renal failure. The patient was initially treated with antibiotics, corticosteroids. Also has been having dialysis daily and now 3 times a week. Chest x-ray is improved, but has residual multifocal pneumonia. Bronchial washing showed Enterobacter cloacae and Staphylococcal aureus, there is possibility of resistant Staphylococcal aureus. The patient was started on meropenem yesterday. The patient will be started on vancomycin today. The patient is heavily sedated with propofol. The patient had severe thrombocytopenia yesterday to about 16,000, it is improved today to 27,000. Tracheostomy is pending, increasing platelet count. PHYSICAL EXAMINATION: GENERAL: Revealed elderly female who is heavily sedated. VITAL SIGNS: Temperature 98.4, heart rate of 80, respiratory rate of 13, blood pressure 145/62. SHEENT: Unremarkable. NECK: Supple. CHEST: Shows some mild crackles. HEART: Shows no jugular venous distention, murmur or gallops. ABDOMEN: Benign. EXTREMITIES: No clubbing, cyanosis or edema. LABORATORY DATA: White count 6.9, hemoglobin 8.8, platelet count is 27,000. Arterial blood gas showed pH 7.41, pCO2 of 39, pO2 of 73. Chest x-ray showed right pleural effusion, multifocal infiltrates involving the left upper, left lower and right lower lobes of the lung. ASSESSMENT: 1. Bronchoscopy done on the showed Enterobacter cloacae complex and Staphylococcus aureus, possibly MRSA. 2. Chronic renal failure, on dialysis. 3. 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 4. Anemia. 5. Acute respiratory failure with hypoxemia. PLAN: 1. Broad-spectrum antibiotics, add vancomycin to cefepime. Pharmacy to dose. 2. Mechanical ventilation. 3. Change propofol to Precedex to light sedation. 4. Continue argatroban. DISCUSSION: There are no focal signs. CARDIOVASCULAR: There are no issues at this time. PULMONARY AND RESPIRATORY: The patient has multifocal pneumonia as well as respiratory failure. She is currently on mechanical ventilation. We will escalate antibiotics. We will also change sedation to Precedex. GASTROINTESTINAL AND DIETARY: The patient is getting adequate nutrition. Will probably switch to Pulmocare and Precedex. PROGRESS NOTE [id number] LOPEZ CASAREZ Time spent 38 minutes, discussed with the daughter and as well as nurse, respiratory therapist. TRANSINT:[id number] Voice Confirmation ID: [id number] DOCUMENT ID: [id number] CORNELL ROBLES at [id number] CC: [id number] DICTATION DATE: 03/16/18 1014 EARTH SCIENCE TEACHER: 03/16/18 1300 ADM IN [facility] [address] [place] [address]
--- NOTE | ~2018-01-25 | PN ---
PATIENT:LOPEZ CASAREZ MEDICAL RECORD: [id number] LOCATION:D.ICU D.230 ADMISSION DATE: 01/27/18 PROGRESS NOTE DATE OF SERVICE: 03/03/2018 SUBJECTIVE: This is a 67-year-old female who was admitted for acute respiratory failure with hypoxemia and hypercapnia. CT scan of the chest showed dependent edema with possible pneumonia. The patient has had a history of obstructive sleep apnea as well as COPD, on neb treatments. The patient was put on BiPAP and titrated to 100% with no improvement. The patient was intubated. FiO2 has improved. The patient has been on weaning trial yesterday and today. The patient is awake. No fever or chills. OBJECTIVE: VITAL SIGNS: Temperature 99, heart rate of 73, respiratory rate of 18, blood pressure 170/72, pulse ox is 97% on 30% FiO2. GENERAL: The patient is awake and alert. SHEENT: Unremarkable. Pupils are equal and reactive. NECK: Supple. Trachea is midline. There is no adenopathy. There is no thyromegaly. CHEST: Shows bilateral coarse crackles. No accessory muscle use. CARDIAC: Shows no jugular venous distention, murmur, or gallop. ABDOMEN: Benign without any tenderness. EXTREMITIES: Show no clubbing, cyanosis, or edema. NEUROLOGIC: Intact. LABORATORY DATA: Shows white count 13.5, hemoglobin 9.3, platelet count is 65,000. Arterial blood gas; pH of 7.44, pCO2 of 44, and pO2 of 50 on 40%. Chemistry is remarkable for sodium of 150, potassium is 3.4, chloride is 109, creatinine is 1.7, glucose level 469. BNP 20,886. ASSESSMENT: 1. Acute respiratory failure with hypercapnia and hypoxia. The patient is requiring less oxygen supplementation. She is on mechanical ventilation. 2. Acute renal failure, to diuresis. 3. Pneumonia. The patient's leukocytosis is improving. We will continue antibiotics. 4. Chronic obstructive pulmonary disease. The patient is on bronchodilators. 5. Hypernatremia, probably secondary to volume depletion. She will need free water. If this progresses, we will stop diuresis. DISCUSSION: NEUROPSYCHIATRY: No focal signs. There is no evidence of a stroke. The patient is sedated, on the ventilator. PLAN: 1. Continue weaning protocol every morning. 2. Continue antibiotics. TRANSINT:[id number] Voice Confirmation ID: [id number] DOCUMENT ID: [id number] PROGRESS NOTE [id number] LOPEZ CASAREZ AUGUSTINE K at 0758 CC: [id number] DICTATION DATE: 03/03/18 1130 HTML WEB DEVELOPER: 03/03/18 1335 ADM IN [facility] [id number] [place] [address]
[2018-01-25] MEDS ORDERED: HUMULIN R100 U/ML SC (20:09)
[2018-01-25 23:53] LABS: HEMATOCRIT 30.2 % (36.0-48.0); HEMOGLOBIN 9.3 g/dL (12-16); MCH 31.5 pg (26.0-34.0); MCHC 30.8 g/dL (31.0-37.0); MCV 102.4 fL (80.0-100.0); MEAN PLATELET VOLUME 8.1 fL (7.4-10.4); NEUTROPHILS 70.8 % (40-80); RBC 2.95 10x6/uL (4.00-5.40); RDW 14.9 % (11.5-14.5)
[2018-01-25 23:54] LABS: PLATELET COUNT 207 10x3/uL (130-400)
[2018-01-26 00:12] LABS: ALBUMIN 3.1 g/dL (3.4-5.0); ANION GAP 9.4 mmol/L (8-16); BILIRUBIN - TOTAL 0.42 mg/dL (0.2-1.3); CALCIUM 8.5 mg/dL (8.5-10.1); CARBON DIOXIDE 31.9 mmol/L (21.0-32.0); CREATININE - SERUM 1.3 mg/dL (0.6-1.3); POTASSIUM - SERUM 4.3 mmol/L (3.5-5.1); PROTEIN - SERUM 7.4 g/dL (6.4-8.2)
[2018-01-26] MEDS ORDERED: HYDROCODON-ACE1 EAC7 PO (05:27)
[2018-01-26 08:04] VITALS: BP 100/43
[2018-01-26 11:48] VITALS: BP 106/44
[2018-01-26 16:16] VITALS: BP 136/59; BMI 31.3
[2018-01-26 21:00] VITALS: BP 107/46
[2018-01-26 23:35] VITALS: BP 105/40
[2018-01-27 04:29] VITALS: BP 121/53
[2018-01-27 05:52] LABS: BASOPHILS 0.2 % (0-2); EOSINOPHILS 5.5 % (0-7); HEMATOCRIT 27.8 % (36.0-48.0); HEMOGLOBIN 8.1 g/dL (12-16); LYMPHOCYTES 19.7 % (15-50); MCH 31.6 pg (26.0-34.0); MCHC 29.1 g/dL (31.0-37.0); MEAN PLATELET VOLUME 8.7 fL (7.4-10.4); MONOCYTES 10.5 % (2-11); NEUTROPHILS 64.1 % (40-80); RBC 2.56 10x6/uL (4.00-5.40); RDW 15.1 % (11.5-14.5); WBC 4.4 10x3/uL (4.8-10.8)
[2018-01-27 05:56] LABS: MCV 108.6 fL (80.0-100.0); PLATELET COUNT 153 10x3/uL (130-400)
[2018-01-27 06:34] LABS: ALBUMIN 2.6 g/dL (3.4-5.0); ANION GAP 9.7 mmol/L (8-16); BILIRUBIN - TOTAL 0.47 mg/dL (0.2-1.3); CALCIUM 8.5 mg/dL (8.5-10.1); CARBON DIOXIDE 31.2 mmol/L (21.0-32.0); POTASSIUM - SERUM 4.9 mmol/L (3.5-5.1); PROTEIN - SERUM 6.6 g/dL (6.4-8.2)
[2018-01-27 06:44] LABS: CREATININE - SERUM 2.3 mg/dL (0.6-1.3)
[2018-01-27 07:47] VITALS: BP 119/46
[2018-01-27 12:13] VITALS: BP 122/47
[2018-01-27 15:58] VITALS: BP 104/41
[2018-01-27 20:06] VITALS: BP 116/48
[2018-01-27 23:21] VITALS: BP 107/43
[2018-01-28 04:41] VITALS: BP 126/53
[2018-01-28 09:20] VITALS: BP 110/45
[2018-01-28 10:01] LABS: BASOPHILS 0.2 % (0-2); EOSINOPHILS 4.4 % (0-7); HEMATOCRIT 28.5 % (36.0-48.0); HEMOGLOBIN 8.3 g/dL (12-16); LYMPHOCYTES 16.6 % (15-50); MCH 31.4 pg (26.0-34.0); MCHC 29.1 g/dL (31.0-37.0); MEAN PLATELET VOLUME 8.4 fL (7.4-10.4); MONOCYTES 6.5 % (2-11); NEUTROPHILS 72.3 % (40-80); PLATELET COUNT 154 10x3/uL (130-400); RBC 2.64 10x6/uL (4.00-5.40); RDW 14.8 % (11.5-14.5); WBC 4.8 10x3/uL (4.8-10.8)
[2018-01-28 10:10] LABS: ANION GAP 8.9 mmol/L (8-16); CALCIUM 8.9 mg/dL (8.5-10.1); CARBON DIOXIDE 31.4 mmol/L (21.0-32.0); POTASSIUM - SERUM 5.3 mmol/L (3.5-5.1)
[2018-01-28 15:51] VITALS: BP 150/69
[2018-01-28 17:07] VITALS: BP 146/52
[2018-01-28 20:42] VITALS: BP 152/62
[2018-01-29 00:28] VITALS: BP 148/68
[2018-01-29 04:10] VITALS: BP 134/64
[2018-01-29 08:30] VITALS: BP 154/60
[2018-01-29 12:35] VITALS: BP 132/53
[2018-01-29 13:24] LABS: BASOPHILS 0.2 % (0-2); EOSINOPHILS 1.3 % (0-7); HEMATOCRIT 29.8 % (36.0-48.0); HEMOGLOBIN 9.1 g/dL (12-16); IMMATURE GRANULOCYTES 0.2 % (0-5); LYMPHOCYTES 14.3 % (15-50); MCH 31.8 pg (26.0-34.0); MCHC 30.5 g/dL (31.0-37.0); MONOCYTES 6.9 % (2-11); NEUTROPHILS 77.1 % (40-80); PLATELET COUNT 163 10x3/uL (130-400); RBC 2.86 10x6/uL (4.00-5.40); RDW 14.5 % (11.5-14.5); WBC 5.2 10x3/uL (4.8-10.8)
[2018-01-29 13:29] LABS: MCV 104.2 fL (80.0-100.0)
[2018-01-29 13:41] LABS: ALBUMIN 2.6 g/dL (3.4-5.0); ANION GAP 9.6 mmol/L (8-16); BILIRUBIN - TOTAL 0.41 mg/dL (0.2-1.3); CALCIUM 8.7 mg/dL (8.5-10.1); CARBON DIOXIDE 29.4 mmol/L (21.0-32.0); CREATININE - SERUM 1.6 mg/dL (0.6-1.3); PROTEIN - SERUM 6.5 g/dL (6.4-8.2)
[2018-01-29 17:56] VITALS: BP 150/58
[2018-01-29 22:18] VITALS: BP 143/58
[2018-01-30 04:10] VITALS: BP 134/64
[2018-01-30 07:52] VITALS: BP 122/53
[2018-01-30 12:16] VITALS: BP 144/49
[2018-01-30 15:24] VITALS: BP 146/59
[2018-01-30 17:02] LABS: APPEARANCE CLOUDY (CLEAR); COLOR DK YELLOW (YELLOW); GLUCOSE 250 mg/dL (NEGATIVE); KETONE NEGATIVE (NEGATIVE); NITRITE NEGATIVE (NEGATIVE); PROTEIN 2+ mg/dL (NEGATIVE); SPECIFIC GRAVITY 1.015 (1.005-1.020)
[2018-01-30 17:03] LABS: BILIRUBIN NEGATIVE (NEGATIVE); UROBILINOGEN NORMAL (NORMAL)
[2018-01-30 17:06] LABS: RED CELLS - URINE >50 /hpf (0-5); WHITE CELLS - URINE 0-5 /hpf (0-5)
[2018-01-30 17:07] LABS: BACTERIA MODERATE /hpf (NONE SEEN); EPITHELIAL CELLS 0-5 /hpf (0-5); URIC ACID CRYSTALS 0-5 /hpf (NONE SEEN)
[2018-01-30 21:48] VITALS: BP 126/56
[2018-01-31 00:56] VITALS: BP 134/54
[2018-01-31 03:50] VITALS: BP 135/53
[2018-01-31 08:06] VITALS: BP 126/60
[2018-01-31 12:36] VITALS: BP 130/50
[2018-01-31 15:23] VITALS: BP 136/59
[2018-01-31 20:00] VITALS: BP 145/56
[2018-02-01 04:00] VITALS: BP 135/49
[2018-02-01 05:53] LABS: BASOPHILS 0 % (0-2); EOSINOPHILS 5.9 % (0-7); HEMATOCRIT 25.9 % (36.0-48.0); HEMOGLOBIN 7.8 g/dL (12-16); IMMATURE GRANULOCYTES 0.2 % (0-5); LYMPHOCYTES 29.9 % (15-50); MCH 31.2 pg (26.0-34.0); MCHC 30.1 g/dL (31.0-37.0); MCV 103.6 fL (80.0-100.0); MEAN PLATELET VOLUME 9.2 fL (7.4-10.4); MONOCYTES 6.6 % (2-11); NEUTROPHILS 57.4 % (40-80); PLATELET COUNT 136 10x3/uL (130-400); RDW 14.8 % (11.5-14.5); WBC 4.1 10x3/uL (4.8-10.8)
[2018-02-01 06:22] LABS: ANION GAP 9.2 mmol/L (8-16); CALCIUM 8.2 mg/dL (8.5-10.1); CARBON DIOXIDE 30.1 mmol/L (21.0-32.0); CHOL - HDL RATIO 3.7 ratio (2.3-4.1); CREATININE - SERUM 1.1 mg/dL (0.6-1.3); LDL-HDL RATIO 2.1 ratio (1.5-3.5); POTASSIUM - SERUM 4.3 mmol/L (3.5-5.1)
[2018-02-01 07:58] VITALS: BP 111/54
[2018-02-01 11:19] VITALS: BP 150/62
[2018-02-01 15:43] VITALS: BP 146/65
[2018-02-01 21:19] VITALS: BP 157/67
[2018-02-01 23:47] VITALS: BP 164/74
[2018-02-02 04:05] VITALS: BP 164/78
[2018-02-02 06:09] LABS: BASOPHILS 0.2 % (0-2); EOSINOPHILS 5.3 % (0-7); HEMATOCRIT 25.7 % (36.0-48.0); HEMOGLOBIN 7.7 g/dL (12-16); IMMATURE GRANULOCYTES 0.6 % (0-5); LYMPHOCYTES 21.7 % (15-50); MCH 31.2 pg (26.0-34.0); MEAN PLATELET VOLUME 9.5 fL (7.4-10.4); MONOCYTES 6.7 % (2-11); NEUTROPHILS 65.5 % (40-80); PLATELET COUNT 144 10x3/uL (130-400); RBC 2.47 10x6/uL (4.00-5.40); RDW 14.8 % (11.5-14.5); WBC 4.9 10x3/uL (4.8-10.8)
[2018-02-02 06:35] LABS: ANION GAP 9.3 mmol/L (8-16); CALCIUM 8.2 mg/dL (8.5-10.1); CARBON DIOXIDE 28.8 mmol/L (21.0-32.0); POTASSIUM - SERUM 4.1 mmol/L (3.5-5.1)
[2018-02-02 07:52] VITALS: BP 129/48
[2018-02-02 12:24] VITALS: BP 147/56
[2018-02-02 15:32] VITALS: BP 142/50
[2018-02-02 20:51] VITALS: BP 138/64
[2018-02-03 04:26] VITALS: BP 154/64
[2018-02-03 06:31] LABS: BASOPHILS 0.4 % (0-2); EOSINOPHILS 4.3 % (0-7); HEMATOCRIT 25.2 % (36.0-48.0); HEMOGLOBIN 7.6 g/dL (12-16); IMMATURE GRANULOCYTES 0.4 % (0-5); LYMPHOCYTES 18.3 % (15-50); MCH 31.5 pg (26.0-34.0); MCHC 30.2 g/dL (31.0-37.0); MCV 104.6 fL (80.0-100.0); MEAN PLATELET VOLUME 9.2 fL (7.4-10.4); MONOCYTES 6.2 % (2-11); NEUTROPHILS 70.4 % (40-80); PLATELET COUNT 140 10x3/uL (130-400); RBC 2.41 10x6/uL (4.00-5.40); RDW 14.9 % (11.5-14.5); WBC 5.3 10x3/uL (4.8-10.8)
[2018-02-03 06:55] LABS: ANION GAP 7.8 mmol/L (8-16); CALCIUM 8.1 mg/dL (8.5-10.1); CARBON DIOXIDE 29.5 mmol/L (21.0-32.0); POTASSIUM - SERUM 4.3 mmol/L (3.5-5.1)
[2018-02-03 08:39] VITALS: BP 139/52
[2018-02-03 12:24] VITALS: BP 123/48
[2018-02-03 15:42] VITALS: BP 131/76; BP 139/59
[2018-02-03 20:26] VITALS: BP 136/62
[2018-02-04] VITALS (7 sets, daily range): BP systolic 118–148; BP diastolic 41–64
[2018-02-04 05:31] LABS: BASOPHILS 0.2 % (0-2); EOSINOPHILS 4.9 % (0-7); HEMATOCRIT 26.1 % (36.0-48.0); HEMOGLOBIN 7.8 g/dL (12-16); IMMATURE GRANULOCYTES 0.2 % (0-5); LYMPHOCYTES 22.6 % (15-50); MCH 31.5 pg (26.0-34.0); MCHC 29.9 g/dL (31.0-37.0); MCV 105.2 fL (80.0-100.0); MEAN PLATELET VOLUME 9.7 fL (7.4-10.4); MONOCYTES 8.2 % (2-11); NEUTROPHILS 63.9 % (40-80); PLATELET COUNT 144 10x3/uL (130-400); RBC 2.48 10x6/uL (4.00-5.40); RDW 14.9 % (11.5-14.5); WBC 4.9 10x3/uL (4.8-10.8)
[2018-02-04 06:07] LABS: ANION GAP 9.4 mmol/L (8-16); CALCIUM 8.1 mg/dL (8.5-10.1); CARBON DIOXIDE 29.1 mmol/L (21.0-32.0); CREATININE - SERUM 1.1 mg/dL (0.6-1.3); POTASSIUM - SERUM 4.5 mmol/L (3.5-5.1)
[2018-02-05 03:46] VITALS: BP 125/54
[2018-02-05 05:19] LABS: BASOPHILS 0.2 % (0-2); EOSINOPHILS 3.3 % (0-7); HEMATOCRIT 24.2 % (36.0-48.0); IMMATURE GRANULOCYTES 0.6 % (0-5); MCH 31.1 pg (26.0-34.0); MCHC 30.2 g/dL (31.0-37.0); MEAN PLATELET VOLUME 9.6 fL (7.4-10.4); MONOCYTES 7.5 % (2-11); NEUTROPHILS 65.4 % (40-80); PLATELET COUNT 140 10x3/uL (130-400); RBC 2.35 10x6/uL (4.00-5.40); RDW 14.9 % (11.5-14.5); WBC 4.8 10x3/uL (4.8-10.8)
[2018-02-05 05:33] LABS: HEMOGLOBIN 7.3 g/dL (12-16)
[2018-02-05 06:20] LABS: CALCIUM 8.3 mg/dL (8.5-10.1); CARBON DIOXIDE 31.4 mmol/L (21.0-32.0); CREATININE - SERUM 1.2 mg/dL (0.6-1.3); POTASSIUM - SERUM 4.4 mmol/L (3.5-5.1); PRE-ALBUMIN 10.2 mg/dL (18.0-35.7)
[2018-02-05 08:13] VITALS: BP 154/72
[2018-02-05 12:33] VITALS: BP 135/57
[2018-02-05 19:36] VITALS: BP 156/64
[2018-02-05 23:26] VITALS: BP 163/69
[2018-02-06 04:00] VITALS: BP 145/52
[2018-02-06 05:49] LABS: BASOPHILS 0.2 % (0-2); EOSINOPHILS 3.3 % (0-7); IMMATURE GRANULOCYTES 0.6 % (0-5); LYMPHOCYTES 17.9 % (15-50); MCH 31.7 pg (26.0-34.0); MCHC 32.1 g/dL (31.0-37.0); MEAN PLATELET VOLUME 9.4 fL (7.4-10.4); MONOCYTES 6.7 % (2-11); NEUTROPHILS 71.3 % (40-80); PLATELET COUNT 122 10x3/uL (130-400); RDW 16.3 % (11.5-14.5); WBC 4.9 10x3/uL (4.8-10.8)
[2018-02-06 05:55] LABS: HEMATOCRIT 29.9 % (36.0-48.0); HEMOGLOBIN 9.6 g/dL (12-16); MCV 98.7 fL (80.0-100.0); RBC 3.03 10x6/uL (4.00-5.40)
[2018-02-06 06:20] LABS: ALBUMIN 2.7 g/dL (3.4-5.0); ANION GAP 9.1 mmol/L (8-16); BILIRUBIN - TOTAL 1.19 mg/dL (0.2-1.3); CALCIUM 8.6 mg/dL (8.5-10.1); CARBON DIOXIDE 33.6 mmol/L (21.0-32.0); CREATININE - SERUM 1.1 mg/dL (0.6-1.3); PROTEIN - SERUM 6.6 g/dL (6.4-8.2)
[2018-02-06 06:21] LABS: POTASSIUM - SERUM 3.7 mmol/L (3.5-5.1)
[2018-02-06 08:05] VITALS: BP 130/50
[2018-02-06 12:09] VITALS: BP 149/58
[2018-02-06 16:02] VITALS: BP 146/60
[2018-02-06 19:47] VITALS: BP 141/57
[2018-02-06 23:37] VITALS: BP 136/58
[2018-02-07 03:39] VITALS: BP 110/47
[2018-02-07 05:08] LABS: BASOPHILS 0.2 % (0-2); EOSINOPHILS 2.9 % (0-7); HEMOGLOBIN 9.5 g/dL (12-16); IMMATURE GRANULOCYTES 0.5 % (0-5); LYMPHOCYTES 10.4 % (15-50); MCH 30.9 pg (26.0-34.0); MCHC 30.6 g/dL (31.0-37.0); MEAN PLATELET VOLUME 9.8 fL (7.4-10.4); MONOCYTES 6.6 % (2-11); NEUTROPHILS 79.4 % (40-80); PLATELET COUNT 111 10x3/uL (130-400); RBC 3.07 10x6/uL (4.00-5.40); RDW 15.7 % (11.5-14.5); WBC 5.6 10x3/uL (4.8-10.8)
[2018-02-07 06:00] LABS: ANION GAP 11.2 mmol/L (8-16); BILIRUBIN - TOTAL 1.25 mg/dL (0.2-1.3); CALCIUM 8.6 mg/dL (8.5-10.1); CARBON DIOXIDE 32.5 mmol/L (21.0-32.0); POTASSIUM - SERUM 3.7 mmol/L (3.5-5.1); PROTEIN - SERUM 6.9 g/dL (6.4-8.2)
[2018-02-07 06:20] LABS: CREATININE - SERUM 1.4 mg/dL (0.6-1.3)
[2018-02-07 08:20] VITALS: BP 119/52
[2018-02-07 12:06] VITALS: BP 135/57
[2018-02-07 16:41] VITALS: BP 140/62; BP 155/69
[2018-02-07 21:09] VITALS: BP 142/58
[2018-02-07 23:47] VITALS: BP 111/45
[2018-02-08 04:32] VITALS: BP 124/54
[2018-02-08 05:44] LABS: BASOPHILS 0.2 % (0-2); EOSINOPHILS 4.3 % (0-7); HEMATOCRIT 30.4 % (36.0-48.0); HEMOGLOBIN 9.3 g/dL (12-16); IMMATURE GRANULOCYTES 0.4 % (0-5); LYMPHOCYTES 18.4 % (15-50); MCH 31.2 pg (26.0-34.0); MCHC 30.6 g/dL (31.0-37.0); MEAN PLATELET VOLUME 9.8 fL (7.4-10.4); NEUTROPHILS 70.7 % (40-80); PLATELET COUNT 101 10x3/uL (130-400); RBC 2.98 10x6/uL (4.00-5.40); RDW 15.4 % (11.5-14.5); WBC 4.7 10x3/uL (4.8-10.8)
[2018-02-08 06:08] LABS: ALBUMIN 3.1 g/dL (3.4-5.0); ANION GAP 7.5 mmol/L (8-16); BILIRUBIN - TOTAL 0.82 mg/dL (0.2-1.3); CALCIUM 8.7 mg/dL (8.5-10.1); CARBON DIOXIDE 35.2 mmol/L (21.0-32.0); CREATININE - SERUM 1.4 mg/dL (0.6-1.3); POTASSIUM - SERUM 3.7 mmol/L (3.5-5.1); PROTEIN - SERUM 6.9 g/dL (6.4-8.2)
[2018-02-08 08:25] VITALS: BP 167/75
[2018-02-08 11:57] VITALS: BP 187/56
[2018-02-08 16:27] VITALS: BP 148/62
[2018-02-08 22:40] VITALS: BP 148/62
[2018-02-09 01:14] VITALS: BP 126/54
[2018-02-09 04:42] VITALS: BP 134/64
[2018-02-09 05:43] LABS: BASOPHILS 0.6 % (0-2); EOSINOPHILS 3.5 % (0-7); HEMATOCRIT 30.2 % (36.0-48.0); HEMOGLOBIN 9.2 g/dL (12-16); IMMATURE GRANULOCYTES 0.4 % (0-5); LYMPHOCYTES 15.8 % (15-50); MCH 31.1 pg (26.0-34.0); MCHC 30.5 g/dL (31.0-37.0); MEAN PLATELET VOLUME 9.8 fL (7.4-10.4); NEUTROPHILS 74.7 % (40-80); PLATELET COUNT 111 10x3/uL (130-400); RBC 2.96 10x6/uL (4.00-5.40); RDW 15.2 % (11.5-14.5); WBC 5.4 10x3/uL (4.8-10.8)
[2018-02-09 06:08] LABS: ALBUMIN 3.3 g/dL (3.4-5.0); ANION GAP 5.8 mmol/L (8-16); BILIRUBIN - TOTAL 0.9 mg/dL (0.2-1.3); CALCIUM 8.6 mg/dL (8.5-10.1); CREATININE - SERUM 1.3 mg/dL (0.6-1.3); POTASSIUM - SERUM 3.8 mmol/L (3.5-5.1)
[2018-02-09 08:00] VITALS: BP 127/58
[2018-02-09 11:39] VITALS: BP 139/43
[2018-02-09 16:49] VITALS: BP 131/56
[2018-02-09 20:32] VITALS: BP 134/74
[2018-02-10 00:20] VITALS: BP 132/62
[2018-02-10 03:34] VITALS: BP 128/55
[2018-02-10 07:39] VITALS: BP 127/43
[2018-02-10 07:59] LABS: BASOPHILS 0.2 % (0-2); EOSINOPHILS 3.1 % (0-7); HEMATOCRIT 28.8 % (36.0-48.0); HEMOGLOBIN 8.9 g/dL (12-16); IMMATURE GRANULOCYTES 0.3 % (0-5); LYMPHOCYTES 14.1 % (15-50); MCH 31.4 pg (26.0-34.0); MCHC 30.9 g/dL (31.0-37.0); MCV 101.8 fL (80.0-100.0); MEAN PLATELET VOLUME 10.5 fL (7.4-10.4); NEUTROPHILS 77.3 % (40-80); PLATELET COUNT 98 10x3/uL (130-400); RBC 2.83 10x6/uL (4.00-5.40); WBC 5.8 10x3/uL (4.8-10.8)
[2018-02-10 08:19] LABS: ALBUMIN 3.3 g/dL (3.4-5.0); ANION GAP 8.9 mmol/L (8-16); BILIRUBIN - TOTAL 0.82 mg/dL (0.2-1.3); CALCIUM 8.6 mg/dL (8.5-10.1); CARBON DIOXIDE 37.7 mmol/L (21.0-32.0); CREATININE - SERUM 1.2 mg/dL (0.6-1.3); POTASSIUM - SERUM 3.6 mmol/L (3.5-5.1); PROTEIN - SERUM 6.5 g/dL (6.4-8.2)
[2018-02-10 08:37] LABS: PLATELET ESTIMATE DECREASED
[2018-02-10 12:15] VITALS: BP 134/57
[2018-02-10 15:43] VITALS: BP 121/46
[2018-02-10 20:04] VITALS: BP 104/50
[2018-02-11] VITALS: BP 130/46
[2018-02-11 04:59] VITALS: BP 110/42; BP 88/50
[2018-02-11 09:36] VITALS: BP 128/56
[2018-02-11 13:33] VITALS: BMI 31.2
[2018-02-11 15:03] VITALS: BP 141/57
[2018-02-11 18:07] VITALS: BP 134/68
[2018-02-11 21:49] VITALS: BP 150/61
[2018-02-12 05:40] LABS: BASOPHILS 0.3 % (0-2); EOSINOPHILS 3.3 % (0-7); HEMATOCRIT 28.5 % (36.0-48.0); HEMOGLOBIN 8.6 g/dL (12-16); IMMATURE GRANULOCYTES 0.5 % (0-5); LYMPHOCYTES 17.2 % (15-50); MCH 30.6 pg (26.0-34.0); MCHC 30.2 g/dL (31.0-37.0); MCV 101.4 fL (80.0-100.0); MEAN PLATELET VOLUME 10.3 fL (7.4-10.4); NEUTROPHILS 72.7 % (40-80); RBC 2.81 10x6/uL (4.00-5.40); RDW 15.2 % (11.5-14.5); WBC 6.5 10x3/uL (4.8-10.8)
[2018-02-12 05:44] LABS: PLATELET COUNT 123 10x3/uL (130-400)
[2018-02-12 06:09] LABS: ALBUMIN 3.4 g/dL (3.4-5.0); ANION GAP 8.3 mmol/L (8-16); BILIRUBIN - TOTAL 1.06 mg/dL (0.2-1.3); CALCIUM 8.7 mg/dL (8.5-10.1); CARBON DIOXIDE 34.8 mmol/L (21.0-32.0); CREATININE - SERUM 1.5 mg/dL (0.6-1.3); POTASSIUM - SERUM 4.1 mmol/L (3.5-5.1)
[2018-02-12 06:38] VITALS: BP 137/65
[2018-02-12 08:30] VITALS: BP 126/54
[2018-02-12 12:45] VITALS: BP 109/68; BP 128/50
[2018-02-12 16:31] VITALS: BP 104/12
[2018-02-12 23:09] VITALS: BP 126/49
[2018-02-13 05:06] VITALS: BP 114/59
[2018-02-13 09:23] VITALS: BP 138/55
[2018-02-13 11:08] LABS: BASOPHILS 0.3 % (0-2); EOSINOPHILS 5.4 % (0-7); HEMATOCRIT 29.3 % (36.0-48.0); HEMOGLOBIN 8.9 g/dL (12-16); IMMATURE GRANULOCYTES 0.3 % (0-5); LYMPHOCYTES 15.3 % (15-50); MCH 31.1 pg (26.0-34.0); MCHC 30.4 g/dL (31.0-37.0); MCV 102.4 fL (80.0-100.0); MEAN PLATELET VOLUME 10.1 fL (7.4-10.4); MONOCYTES 5.9 % (2-11); NEUTROPHILS 72.8 % (40-80); RBC 2.86 10x6/uL (4.00-5.40); RDW 15.4 % (11.5-14.5); WBC 6.5 10x3/uL (4.8-10.8)
[2018-02-13 11:21] LABS: PLATELET COUNT 95 10x3/uL (130-400)
[2018-02-13 11:38] LABS: PLATELET ESTIMATE DECREASED
[2018-02-13 11:49] LABS: ALBUMIN 3.2 g/dL (3.4-5.0); ANION GAP -1.6 mmol/L (8-16); BILIRUBIN - TOTAL 0.97 mg/dL (0.2-1.3); CALCIUM 8.8 mg/dL (8.5-10.1); CARBON DIOXIDE 36.4 mmol/L (21.0-32.0); CREATININE - SERUM 1.5 mg/dL (0.6-1.3); POTASSIUM - SERUM 3.8 mmol/L (3.5-5.1); PROTEIN - SERUM 6.9 g/dL (6.4-8.2)
[2018-02-13 12:48] VITALS: BP 136/56
[2018-02-13 17:13] VITALS: BP 144/49
[2018-02-13 22:51] VITALS: BP 144/52
[2018-02-14] VITALS (18 sets, daily range): BP systolic 120–165; BP diastolic 40–67
[2018-02-14 06:27] LABS: BASOPHILS 0.2 % (0-2); EOSINOPHILS 5.1 % (0-7); HEMATOCRIT 28.4 % (36.0-48.0); HEMOGLOBIN 8.6 g/dL (12-16); IMMATURE GRANULOCYTES 0.4 % (0-5); LYMPHOCYTES 18.1 % (15-50); MCH 30.9 pg (26.0-34.0); MCHC 30.3 g/dL (31.0-37.0); MCV 102.2 fL (80.0-100.0); MEAN PLATELET VOLUME 10.3 fL (7.4-10.4); MONOCYTES 5.8 % (2-11); NEUTROPHILS 70.4 % (40-80); PLATELET COUNT 79 10x3/uL (130-400); RBC 2.78 10x6/uL (4.00-5.40); RDW 15.4 % (11.5-14.5); WBC 5.7 10x3/uL (4.8-10.8)
[2018-02-14 06:52] LABS: ALBUMIN 3.1 g/dL (3.4-5.0); ANION GAP 6.1 mmol/L (8-16); CALCIUM 8.8 mg/dL (8.5-10.1); CARBON DIOXIDE 35.8 mmol/L (21.0-32.0); CREATININE - SERUM 1.3 mg/dL (0.6-1.3); POTASSIUM - SERUM 3.9 mmol/L (3.5-5.1); PROTEIN - SERUM 6.9 g/dL (6.4-8.2)
[2018-02-14 09:52] LABS: BASOPHILS 0.2 % (0-2); HEMATOCRIT 29.9 % (36.0-48.0); HEMOGLOBIN 9.1 g/dL (12-16); IMMATURE GRANULOCYTES 0.5 % (0-5); LYMPHOCYTES 20.8 % (15-50); MCH 31.4 pg (26.0-34.0); MCHC 30.4 g/dL (31.0-37.0); MCV 103.1 fL (80.0-100.0); MEAN PLATELET VOLUME 10.3 fL (7.4-10.4); MONOCYTES 5.5 % (2-11); PLATELET COUNT 82 10x3/uL (130-400); RDW 15.5 % (11.5-14.5); WBC 6.3 10x3/uL (4.8-10.8)
[2018-02-14 09:59] LABS: ANION GAP 8.9 mmol/L (8-16); CALCIUM 8.8 mg/dL (8.5-10.1); CARBON DIOXIDE 34.3 mmol/L (21.0-32.0); CREATININE - SERUM 1.5 mg/dL (0.6-1.3); MAGNESIUM - SERUM 2.4 mg/dL (1.8-2.4); POTASSIUM - SERUM 4.2 mmol/L (3.5-5.1)
[2018-02-14 10:18] LABS: APTT 26.4 SECONDS (22.8-39.4); INR 1.24 (0.85-1.17); PROTIME 15.1 SECONDS (11.6-15.0)
[2018-02-14 15:35] LABS: INR 10.57 (0.85-1.17)
[2018-02-14 15:36] LABS: APTT 128.5 SECONDS (22.8-39.4)
[2018-02-14 19:27] LABS: INR 2.19 (0.85-1.17); PROTIME 23.8 SECONDS (11.6-15.0)
[2018-02-15] VITALS (22 sets, daily range): BP systolic 134–165; BP diastolic 55–71
[2018-02-15 04:58] LABS: BASOPHILS 0.2 % (0-2); EOSINOPHILS 4.3 % (0-7); HEMATOCRIT 27.6 % (36.0-48.0); HEMOGLOBIN 8.3 g/dL (12-16); IMMATURE GRANULOCYTES 0.2 % (0-5); LYMPHOCYTES 16.8 % (15-50); MCH 30.9 pg (26.0-34.0); MCHC 30.1 g/dL (31.0-37.0); MCV 102.6 fL (80.0-100.0); MEAN PLATELET VOLUME 10.1 fL (7.4-10.4); MONOCYTES 6.8 % (2-11); NEUTROPHILS 71.7 % (40-80); PLATELET COUNT 88 10x3/uL (130-400); RBC 2.69 10x6/uL (4.00-5.40); RDW 15.5 % (11.5-14.5); WBC 5.6 10x3/uL (4.8-10.8)
[2018-02-15 05:12] LABS: ALBUMIN 2.9 g/dL (3.4-5.0); BILIRUBIN - TOTAL 0.91 mg/dL (0.2-1.3); CALCIUM 8.5 mg/dL (8.5-10.1); CARBON DIOXIDE 33.2 mmol/L (21.0-32.0); CREATININE - SERUM 1.2 mg/dL (0.6-1.3); POTASSIUM - SERUM 4.2 mmol/L (3.5-5.1); PROTEIN - SERUM 6.8 g/dL (6.4-8.2)
[2018-02-15 09:19] LABS: FOLATE (FOLIC ACID) - SERUM 16.9 ng/mL (>3.0)
[2018-02-16] VITALS (24 sets, daily range): BP systolic 137–188; BP diastolic 58–82
[2018-02-16 05:37] LABS: BASOPHILS 0.2 % (0-2); EOSINOPHILS 7.4 % (0-7); HEMATOCRIT 27.7 % (36.0-48.0); HEMOGLOBIN 8.3 g/dL (12-16); IMMATURE GRANULOCYTES 0.2 % (0-5); LYMPHOCYTES 19.6 % (15-50); MCV 103.4 fL (80.0-100.0); MEAN PLATELET VOLUME 10.9 fL (7.4-10.4); MONOCYTES 5.7 % (2-11); NEUTROPHILS 66.9 % (40-80); PLATELET COUNT 103 10x3/uL (130-400); RBC 2.68 10x6/uL (4.00-5.40); RDW 15.8 % (11.5-14.5); WBC 5.4 10x3/uL (4.8-10.8)
[2018-02-16 05:58] LABS: ALBUMIN 2.8 g/dL (3.4-5.0); ANION GAP 8.8 mmol/L (8-16); BILIRUBIN - TOTAL 0.82 mg/dL (0.2-1.3); CALCIUM 8.6 mg/dL (8.5-10.1); CARBON DIOXIDE 35.2 mmol/L (21.0-32.0); CREATININE - SERUM 1.2 mg/dL (0.6-1.3); PROTEIN - SERUM 6.2 g/dL (6.4-8.2)
[2018-02-17] VITALS (23 sets, daily range): BP systolic 127–180; BP diastolic 50–82
[2018-02-17 03:24] LABS: BASOPHILS 0.2 % (0-2); EOSINOPHILS 7.7 % (0-7); HEMATOCRIT 27.6 % (36.0-48.0); HEMOGLOBIN 8.3 g/dL (12-16); IMMATURE GRANULOCYTES 0.2 % (0-5); LYMPHOCYTES 19.6 % (15-50); MCH 30.9 pg (26.0-34.0); MCHC 30.1 g/dL (31.0-37.0); MCV 102.6 fL (80.0-100.0); MONOCYTES 4.8 % (2-11); NEUTROPHILS 67.5 % (40-80); PLATELET COUNT 115 10x3/uL (130-400); RBC 2.69 10x6/uL (4.00-5.40); RDW 15.8 % (11.5-14.5); WBC 5.4 10x3/uL (4.8-10.8)
[2018-02-17 03:42] LABS: ANION GAP 9.2 mmol/L (8-16); BILIRUBIN - TOTAL 0.93 mg/dL (0.2-1.3); CALCIUM 8.5 mg/dL (8.5-10.1); CARBON DIOXIDE 33.8 mmol/L (21.0-32.0); CREATININE - SERUM 1.2 mg/dL (0.6-1.3); PROTEIN - SERUM 6.8 g/dL (6.4-8.2)
[2018-02-18] VITALS (24 sets, daily range): BP systolic 123–159; BP diastolic 46–66
[2018-02-18 07:12] LABS: BASOPHILS 0.2 % (0-2); EOSINOPHILS 7.7 % (0-7); HEMATOCRIT 26.5 % (36.0-48.0); HEMOGLOBIN 8.1 g/dL (12-16); IMMATURE GRANULOCYTES 0.2 % (0-5); LYMPHOCYTES 16.6 % (15-50); MCH 31.5 pg (26.0-34.0); MCHC 30.6 g/dL (31.0-37.0); MCV 103.1 fL (80.0-100.0); MEAN PLATELET VOLUME 9.6 fL (7.4-10.4); MONOCYTES 5.7 % (2-11); NEUTROPHILS 69.6 % (40-80); PLATELET COUNT 126 10x3/uL (130-400); RBC 2.57 10x6/uL (4.00-5.40); RDW 16.1 % (11.5-14.5); WBC 5.5 10x3/uL (4.8-10.8)
[2018-02-18 07:42] LABS: ALBUMIN 3.5 g/dL (3.4-5.0); ANION GAP 10.5 mmol/L (8-16); BILIRUBIN - TOTAL 1.07 mg/dL (0.2-1.3); CALCIUM 8.8 mg/dL (8.5-10.1); CARBON DIOXIDE 31.5 mmol/L (21.0-32.0); CREATININE - SERUM 1.2 mg/dL (0.6-1.3)
[2018-02-19] VITALS (24 sets, daily range): BP systolic 125–193; BP diastolic 52–94
[2018-02-19 04:43] LABS: BASOPHILS 0.3 % (0-2); EOSINOPHILS 7.3 % (0-7); HEMATOCRIT 26.5 % (36.0-48.0); IMMATURE GRANULOCYTES 0.3 % (0-5); LYMPHOCYTES 16.1 % (15-50); MCHC 30.2 g/dL (31.0-37.0); MCV 102.7 fL (80.0-100.0); MEAN PLATELET VOLUME 9.6 fL (7.4-10.4); MONOCYTES 6.5 % (2-11); NEUTROPHILS 69.5 % (40-80); PLATELET COUNT 144 10x3/uL (130-400); RBC 2.58 10x6/uL (4.00-5.40); RDW 15.9 % (11.5-14.5); WBC 6.3 10x3/uL (4.8-10.8)
[2018-02-19 04:57] LABS: ALBUMIN 3.5 g/dL (3.4-5.0); ANION GAP 4.1 mmol/L (8-16); BILIRUBIN - TOTAL 1.1 mg/dL (0.2-1.3); CALCIUM 8.8 mg/dL (8.5-10.1); CARBON DIOXIDE 34.6 mmol/L (21.0-32.0); POTASSIUM - SERUM 3.7 mmol/L (3.5-5.1); PROTEIN - SERUM 6.8 g/dL (6.4-8.2)
[2018-02-19 19:52] LABS: HEMATOCRIT 32.7 % (36.0-48.0); HEMOGLOBIN 10.2 g/dL (12-16)
[2018-02-20] VITALS (12 sets, daily range): BP systolic 113–196; BP diastolic 59–95
[2018-02-20 03:03] LABS: BASOPHILS 0.3 % (0-2); EOSINOPHILS 7.1 % (0-7); HEMATOCRIT 35.3 % (36.0-48.0); HEMOGLOBIN 10.9 g/dL (12-16); IMMATURE GRANULOCYTES 0.5 % (0-5); LYMPHOCYTES 13.7 % (15-50); MCHC 30.9 g/dL (31.0-37.0); MEAN PLATELET VOLUME 9.3 fL (7.4-10.4); MONOCYTES 6.2 % (2-11); NEUTROPHILS 72.2 % (40-80); PLATELET COUNT 145 10x3/uL (130-400); RDW 17.3 % (11.5-14.5); WBC 7.5 10x3/uL (4.8-10.8)
[2018-02-20 03:17] LABS: MCV 100.3 fL (80.0-100.0); RBC 3.52 10x6/uL (4.00-5.40)
[2018-02-20 05:13] LABS: ALBUMIN 3.4 g/dL (3.4-5.0); ANION GAP 8.6 mmol/L (8-16); BILIRUBIN - TOTAL 1.58 mg/dL (0.2-1.3); CALCIUM 8.9 mg/dL (8.5-10.1); CARBON DIOXIDE 34.2 mmol/L (21.0-32.0); CREATININE - SERUM 1.2 mg/dL (0.6-1.3); PROTEIN - SERUM 7.2 g/dL (6.4-8.2)
[2018-02-20 05:14] LABS: POTASSIUM - SERUM 4.8 mmol/L (3.5-5.1)
[2018-02-21] VITALS (18 sets, daily range): BP systolic 113–155; BP diastolic 51–92
[2018-02-21 03:53] LABS: BASOPHILS 0.1 % (0-2); HEMOGLOBIN 9.9 g/dL (12-16); IMMATURE GRANULOCYTES 0.5 % (0-5); LYMPHOCYTES 12.1 % (15-50); MCH 30.7 pg (26.0-34.0); MCV 102.2 fL (80.0-100.0); MEAN PLATELET VOLUME 10.1 fL (7.4-10.4); MONOCYTES 4.7 % (2-11); NEUTROPHILS 74.6 % (40-80); PLATELET COUNT 150 10x3/uL (130-400); RBC 3.23 10x6/uL (4.00-5.40); WBC 7.4 10x3/uL (4.8-10.8)
[2018-02-21 04:16] LABS: ALBUMIN 3.3 g/dL (3.4-5.0); BILIRUBIN - TOTAL 1.18 mg/dL (0.2-1.3); CALCIUM 8.3 mg/dL (8.5-10.1); CARBON DIOXIDE 34.6 mmol/L (21.0-32.0); CREATININE - SERUM 1.5 mg/dL (0.6-1.3); PROTEIN - SERUM 6.8 g/dL (6.4-8.2)
[2018-02-21 04:22] LABS: ANION GAP 9.3 mmol/L (8-16); POTASSIUM - SERUM 3.9 mmol/L (3.5-5.1)
[2018-02-22] VITALS (24 sets, daily range): BP systolic 141–172; BP diastolic 61–85
[2018-02-23] VITALS (21 sets, daily range): BP systolic 134–179; BP diastolic 58–100
[2018-02-23 04:27] LABS: BASOPHILS 0.1 % (0-2); EOSINOPHILS 10.5 % (0-7); HEMATOCRIT 32.1 % (36.0-48.0); HEMOGLOBIN 9.8 g/dL (12-16); IMMATURE GRANULOCYTES 0.3 % (0-5); LYMPHOCYTES 12.7 % (15-50); MCHC 30.5 g/dL (31.0-37.0); MCV 101.6 fL (80.0-100.0); MEAN PLATELET VOLUME 9.6 fL (7.4-10.4); MONOCYTES 4.8 % (2-11); NEUTROPHILS 71.6 % (40-80); PLATELET COUNT 144 10x3/uL (130-400); RBC 3.16 10x6/uL (4.00-5.40); RDW 16.2 % (11.5-14.5); WBC 7.3 10x3/uL (4.8-10.8)
[2018-02-23 04:52] LABS: ALBUMIN 3.1 g/dL (3.4-5.0); ANION GAP 7.7 mmol/L (8-16); BILIRUBIN - TOTAL 1.03 mg/dL (0.2-1.3); CALCIUM 8.7 mg/dL (8.5-10.1); CARBON DIOXIDE 32.7 mmol/L (21.0-32.0); CREATININE - SERUM 1.4 mg/dL (0.6-1.3); MAGNESIUM - SERUM 2.2 mg/dL (1.8-2.4); PHOSPHOROUS 3.3 mg/dL (2.5-4.9); POTASSIUM - SERUM 3.4 mmol/L (3.5-5.1); PROTEIN - SERUM 7.1 g/dL (6.4-8.2)
[2018-02-24] VITALS (24 sets, daily range): BP systolic 142–181; BP diastolic 64–96
[2018-02-24 03:45] LABS: BASOPHILS 0.2 % (0-2); EOSINOPHILS 7.2 % (0-7); HEMATOCRIT 28.5 % (36.0-48.0); HEMOGLOBIN 8.8 g/dL (12-16); IMMATURE GRANULOCYTES 0.3 % (0-5); MCH 31.2 pg (26.0-34.0); MCHC 30.9 g/dL (31.0-37.0); MCV 101.1 fL (80.0-100.0); MEAN PLATELET VOLUME 9.4 fL (7.4-10.4); MONOCYTES 4.7 % (2-11); NEUTROPHILS 78.6 % (40-80); PLATELET COUNT 121 10x3/uL (130-400); RBC 2.82 10x6/uL (4.00-5.40); RDW 16.1 % (11.5-14.5); WBC 6.6 10x3/uL (4.8-10.8)
[2018-02-24 04:11] LABS: ANION GAP 4.6 mmol/L (8-16); CALCIUM 8.5 mg/dL (8.5-10.1); CARBON DIOXIDE 35.6 mmol/L (21.0-32.0); CREATININE - SERUM 1.2 mg/dL (0.6-1.3); MAGNESIUM - SERUM 2.1 mg/dL (1.8-2.4); POTASSIUM - SERUM 3.2 mmol/L (3.5-5.1)
[2018-02-25] VITALS (24 sets, daily range): BP systolic 111–184; BP diastolic 65–104
[2018-02-25 03:47] LABS: BASOPHILS 0.1 % (0-2); EOSINOPHILS 0.1 % (0-7); HEMATOCRIT 28.2 % (36.0-48.0); HEMOGLOBIN 8.6 g/dL (12-16); IMMATURE GRANULOCYTES 0.4 % (0-5); LYMPHOCYTES 6.4 % (15-50); MCH 30.8 pg (26.0-34.0); MCHC 30.5 g/dL (31.0-37.0); MCV 101.1 fL (80.0-100.0); MEAN PLATELET VOLUME 10.2 fL (7.4-10.4); MONOCYTES 2.9 % (2-11); NEUTROPHILS 90.1 % (40-80); PLATELET COUNT 132 10x3/uL (130-400); RBC 2.79 10x6/uL (4.00-5.40); WBC 7.7 10x3/uL (4.8-10.8)
[2018-02-25 04:03] LABS: ALBUMIN 3.1 g/dL (3.4-5.0); BILIRUBIN - TOTAL 1.27 mg/dL (0.2-1.3); CALCIUM 9.2 mg/dL (8.5-10.1); CARBON DIOXIDE 31.8 mmol/L (21.0-32.0); CREATININE - SERUM 1.3 mg/dL (0.6-1.3); MAGNESIUM - SERUM 2.1 mg/dL (1.8-2.4); PHOSPHOROUS 2.9 mg/dL (2.5-4.9); POTASSIUM - SERUM 3.8 mmol/L (3.5-5.1); PROTEIN - SERUM 7.3 g/dL (6.4-8.2)
[2018-02-26] VITALS (20 sets, daily range): BP systolic 150–187; BP diastolic 74–114
[2018-02-26 04:46] LABS: BASOPHILS 0.1 % (0-2); EOSINOPHILS 0 % (0-7); HEMOGLOBIN 8.9 g/dL (12-16); IMMATURE GRANULOCYTES 0.3 % (0-5); LYMPHOCYTES 4.2 % (15-50); MCH 30.8 pg (26.0-34.0); MCHC 30.7 g/dL (31.0-37.0); MCV 100.3 fL (80.0-100.0); MEAN PLATELET VOLUME 10.2 fL (7.4-10.4); MONOCYTES 2.8 % (2-11); NEUTROPHILS 92.6 % (40-80); PLATELET COUNT 142 10x3/uL (130-400); RBC 2.89 10x6/uL (4.00-5.40); RDW 16.3 % (11.5-14.5); WBC 9.2 10x3/uL (4.8-10.8)
[2018-02-26 05:11] LABS: ALBUMIN 3.1 g/dL (3.4-5.0); BILIRUBIN - TOTAL 1.49 mg/dL (0.2-1.3); CALCIUM 9.4 mg/dL (8.5-10.1); CARBON DIOXIDE 32.5 mmol/L (21.0-32.0); CREATININE - SERUM 1.2 mg/dL (0.6-1.3); MAGNESIUM - SERUM 2.1 mg/dL (1.8-2.4); PHOSPHOROUS 2.8 mg/dL (2.5-4.9); PROTEIN - SERUM 7.3 g/dL (6.4-8.2)
[2018-02-26 05:18] LABS: ANION GAP 8.6 mmol/L (8-16); POTASSIUM - SERUM 3.1 mmol/L (3.5-5.1)
[2018-02-27] VITALS (23 sets, daily range): BP systolic 147–194; BP diastolic 64–116
[2018-02-27 03:15] LABS: BASOPHILS 0 % (0-2); EOSINOPHILS 0 % (0-7); HEMATOCRIT 26.7 % (36.0-48.0); HEMOGLOBIN 8.1 g/dL (12-16); IMMATURE GRANULOCYTES 0.4 % (0-5); LYMPHOCYTES 4.6 % (15-50); MCH 30.5 pg (26.0-34.0); MCHC 30.3 g/dL (31.0-37.0); MCV 100.4 fL (80.0-100.0); MEAN PLATELET VOLUME 9.7 fL (7.4-10.4); PLATELET COUNT 122 10x3/uL (130-400); RBC 2.66 10x6/uL (4.00-5.40); RDW 16.5 % (11.5-14.5); WBC 10.5 10x3/uL (4.8-10.8)
[2018-02-27 03:40] LABS: ALBUMIN 3.1 g/dL (3.4-5.0); ANION GAP 8.9 mmol/L (8-16); BILIRUBIN - TOTAL 1.74 mg/dL (0.2-1.3); CALCIUM 9.4 mg/dL (8.5-10.1); CARBON DIOXIDE 33.5 mmol/L (21.0-32.0); CREATININE - SERUM 1.2 mg/dL (0.6-1.3); MAGNESIUM - SERUM 1.7 mg/dL (1.8-2.4); PHOSPHOROUS 2.3 mg/dL (2.5-4.9); POTASSIUM - SERUM 3.4 mmol/L (3.5-5.1); PROTEIN - SERUM 7.3 g/dL (6.4-8.2)
[2018-02-27 04:10] LABS: ERYTHROCYTE SEDIMENTATION RATE 14 mm/hr (0-30)
[2018-02-28] VITALS (24 sets, daily range): BP systolic 112–187; BP diastolic 53–99
[2018-02-28 04:34] LABS: BASOPHILS 0.1 % (0-2); EOSINOPHILS 0.1 % (0-7); HEMATOCRIT 31.1 % (36.0-48.0); IMMATURE GRANULOCYTES 0.5 % (0-5); LYMPHOCYTES 3.9 % (15-50); MCH 30.5 pg (26.0-34.0); MCHC 32.2 g/dL (31.0-37.0); MCV 94.8 fL (80.0-100.0); MEAN PLATELET VOLUME 10.5 fL (7.4-10.4); MONOCYTES 3.7 % (2-11); NEUTROPHILS 91.7 % (40-80); PLATELET COUNT 85 10x3/uL (130-400); RBC 3.28 10x6/uL (4.00-5.40); RDW 18.9 % (11.5-14.5); WBC 10.6 10x3/uL (4.8-10.8)
[2018-02-28 05:10] LABS: ANION GAP 9.4 mmol/L (8-16); CALCIUM 9.3 mg/dL (8.5-10.1); CARBON DIOXIDE 33.8 mmol/L (21.0-32.0); CREATININE - SERUM 1.1 mg/dL (0.6-1.3); POTASSIUM - SERUM 3.2 mmol/L (3.5-5.1)
[2018-02-28 05:23] LABS: MAGNESIUM - SERUM 2.2 mg/dL (1.8-2.4); PHOSPHOROUS 2.9 mg/dL (2.5-4.9)
[2018-02-28 06:01] LABS: PLATELET ESTIMATE DECREASED
[2018-02-28 09:09] LABS: INR 2.66 (0.85-1.17); PROTIME 27.6 SECONDS (11.6-15.0)
[2018-02-28 09:14] LABS: BILIRUBIN - DIRECT 0.68 mg/dL (0.00-0.30); BILIRUBIN - INDIRECT 1.4 mg/dL (0.00-1.00); BILIRUBIN - TOTAL 2.08 mg/dL (0.2-1.3)
[2018-03-01] VITALS (24 sets, daily range): BP systolic 140–171; BP diastolic 50–83
[2018-03-01 08:37] LABS: BASOPHILS 0 % (0-2); EOSINOPHILS 0 % (0-7); HEMATOCRIT 28.3 % (36.0-48.0); HEMOGLOBIN 8.9 g/dL (12-16); IMMATURE GRANULOCYTES 0.4 % (0-5); LYMPHOCYTES 2.9 % (15-50); MCH 30.4 pg (26.0-34.0); MCHC 31.4 g/dL (31.0-37.0); MCV 96.6 fL (80.0-100.0); MEAN PLATELET VOLUME 10.2 fL (7.4-10.4); MONOCYTES 2.5 % (2-11); NEUTROPHILS 94.2 % (40-80); PLATELET COUNT 84 10x3/uL (130-400); RBC 2.93 10x6/uL (4.00-5.40); WBC 9.8 10x3/uL (4.8-10.8)
[2018-03-01 08:44] LABS: INR 4.58 (0.85-1.17); PROTIME 42.4 SECONDS (11.6-15.0)
[2018-03-01 08:52] LABS: ALBUMIN 2.6 g/dL (3.4-5.0); ANION GAP 7.4 mmol/L (8-16); BILIRUBIN - TOTAL 1.6 mg/dL (0.2-1.3); CARBON DIOXIDE 35.8 mmol/L (21.0-32.0); MAGNESIUM - SERUM 2.1 mg/dL (1.8-2.4); PHOSPHOROUS 2.7 mg/dL (2.5-4.9); POTASSIUM - SERUM 3.2 mmol/L (3.5-5.1); PROTEIN - SERUM 6.2 g/dL (6.4-8.2)
[2018-03-01 08:53] LABS: CREATININE - SERUM 1.4 mg/dL (0.6-1.3)
[2018-03-01 11:21] LABS: ANA REFLEX - DIRECT Negative (Negative)
[2018-03-02] VITALS (24 sets, daily range): BP systolic 106–165; BP diastolic 51–71
[2018-03-02 05:16] LABS: BASOPHILS 0 % (0-2); EOSINOPHILS 1.4 % (0-7); HEMOGLOBIN 8.7 g/dL (12-16); IMMATURE GRANULOCYTES 0.4 % (0-5); LYMPHOCYTES 4.5 % (15-50); MCH 30.3 pg (26.0-34.0); MCHC 31.1 g/dL (31.0-37.0); MCV 97.6 fL (80.0-100.0); MEAN PLATELET VOLUME 11.6 fL (7.4-10.4); MONOCYTES 3.3 % (2-11); NEUTROPHILS 90.4 % (40-80); PLATELET COUNT 79 10x3/uL (130-400); RBC 2.87 10x6/uL (4.00-5.40); RDW 17.8 % (11.5-14.5); WBC 11.4 10x3/uL (4.8-10.8)
[2018-03-02 16:07] LABS: ALBUMIN 2.3 g/dL (3.4-5.0); BILIRUBIN - TOTAL 1.24 mg/dL (0.2-1.3); CALCIUM 8.4 mg/dL (8.5-10.1); CARBON DIOXIDE 36.6 mmol/L (21.0-32.0); CREATININE - SERUM 1.4 mg/dL (0.6-1.3); PROTEIN - SERUM 5.2 g/dL (6.4-8.2)
[2018-03-02 16:15] LABS: POTASSIUM - SERUM 2.6 mmol/L (3.5-5.1)
[2018-03-02 23:24] LABS: APPEARANCE CLEAR (CLEAR); BILIRUBIN NEGATIVE (NEGATIVE); COLOR YELLOW (YELLOW); GLUCOSE 100 mg/dL (NEGATIVE); KETONE NEGATIVE (NEGATIVE); NITRITE NEGATIVE (NEGATIVE); PROTEIN 3+ mg/dL (NEGATIVE); UROBILINOGEN NORMAL (NORMAL)
[2018-03-02 23:25] LABS: BACTERIA FEW /hpf (NONE SEEN); EPITHELIAL CELLS 0-5 /hpf (0-5); WHITE CELLS - URINE 0-5 /hpf (0-5)
[2018-03-03] VITALS (25 sets, daily range): BP systolic 105–195; BP diastolic 51–82
[2018-03-03 04:14] LABS: BASOPHILS 0.1 % (0-2); EOSINOPHILS 0 % (0-7); HEMATOCRIT 30.6 % (36.0-48.0); HEMOGLOBIN 9.3 g/dL (12-16); IMMATURE GRANULOCYTES 0.4 % (0-5); LYMPHOCYTES 2.7 % (15-50); MCHC 30.4 g/dL (31.0-37.0); MCV 98.7 fL (80.0-100.0); MEAN PLATELET VOLUME 11.8 fL (7.4-10.4); MONOCYTES 2.4 % (2-11); NEUTROPHILS 94.4 % (40-80); PLATELET COUNT 65 10x3/uL (130-400); RDW 17.7 % (11.5-14.5); WBC 13.5 10x3/uL (4.8-10.8)
[2018-03-03 04:38] LABS: ALBUMIN 2.4 g/dL (3.4-5.0); BILIRUBIN - TOTAL 1.32 mg/dL (0.2-1.3); CALCIUM 8.5 mg/dL (8.5-10.1); CARBON DIOXIDE 35.7 mmol/L (21.0-32.0); CREATININE - SERUM 1.7 mg/dL (0.6-1.3); MAGNESIUM - SERUM 2.3 mg/dL (1.8-2.4); PROTEIN - SERUM 6.3 g/dL (6.4-8.2)
[2018-03-03 04:45] LABS: ANION GAP 8.7 mmol/L (8-16); POTASSIUM - SERUM 3.4 mmol/L (3.5-5.1)
[2018-03-03 16:24] LABS: BASOPHILS 0 % (0-2); EOSINOPHILS 0 % (0-7); HEMATOCRIT 27.4 % (36.0-48.0); HEMOGLOBIN 8.4 g/dL (12-16); IMMATURE GRANULOCYTES 0.2 % (0-5); MCH 30.1 pg (26.0-34.0); MCHC 30.7 g/dL (31.0-37.0); MCV 98.2 fL (80.0-100.0); MEAN PLATELET VOLUME 11.8 fL (7.4-10.4); MONOCYTES 1.4 % (2-11); NEUTROPHILS 94.4 % (40-80); PLATELET COUNT 59 10x3/uL (130-400); RBC 2.79 10x6/uL (4.00-5.40); RDW 17.3 % (11.5-14.5); WBC 13.4 10x3/uL (4.8-10.8)
[2018-03-04] VITALS (24 sets, daily range): BP systolic 105–170; BP diastolic 50–63
[2018-03-04 04:30] LABS: BASOPHILS 0 % (0-2); EOSINOPHILS 0 % (0-7); HEMATOCRIT 28.6 % (36.0-48.0); HEMOGLOBIN 8.9 g/dL (12-16); IMMATURE GRANULOCYTES 0.6 % (0-5); MCH 30.4 pg (26.0-34.0); MCHC 31.1 g/dL (31.0-37.0); MCV 97.6 fL (80.0-100.0); MONOCYTES 2.9 % (2-11); NEUTROPHILS 93.5 % (40-80); PLATELET COUNT 62 10x3/uL (130-400); RBC 2.93 10x6/uL (4.00-5.40); RDW 17.4 % (11.5-14.5); WBC 13.5 10x3/uL (4.8-10.8)
[2018-03-04 05:14] LABS: ALBUMIN 2.2 g/dL (3.4-5.0); ANION GAP 8.2 mmol/L (8-16); BILIRUBIN - TOTAL 1.27 mg/dL (0.2-1.3); CARBON DIOXIDE 33.6 mmol/L (21.0-32.0); CREATININE - SERUM 1.8 mg/dL (0.6-1.3); MAGNESIUM - SERUM 2.3 mg/dL (1.8-2.4); POTASSIUM - SERUM 3.8 mmol/L (3.5-5.1); PROTEIN - SERUM 5.8 g/dL (6.4-8.2)
[2018-03-05] VITALS (25 sets, daily range): BP systolic 123–165; BP diastolic 45–64
[2018-03-05 03:52] LABS: BASOPHILS 0.1 % (0-2); EOSINOPHILS 0 % (0-7); HEMATOCRIT 26.5 % (36.0-48.0); HEMOGLOBIN 8.1 g/dL (12-16); IMMATURE GRANULOCYTES 0.6 % (0-5); LYMPHOCYTES 2.7 % (15-50); MCH 30.1 pg (26.0-34.0); MCHC 30.6 g/dL (31.0-37.0); MCV 98.5 fL (80.0-100.0); MEAN PLATELET VOLUME 12.9 fL (7.4-10.4); MONOCYTES 2.4 % (2-11); NEUTROPHILS 94.2 % (40-80); PLATELET COUNT 62 10x3/uL (130-400); RBC 2.69 10x6/uL (4.00-5.40); RDW 17.7 % (11.5-14.5); WBC 13.3 10x3/uL (4.8-10.8)
[2018-03-05 03:55] LABS: ALBUMIN 2.1 g/dL (3.4-5.0); ANION GAP 10.5 mmol/L (8-16); BILIRUBIN - TOTAL 1.01 mg/dL (0.2-1.3); CALCIUM 8.3 mg/dL (8.5-10.1); CARBON DIOXIDE 32.2 mmol/L (21.0-32.0); CREATININE - SERUM 1.9 mg/dL (0.6-1.3); POTASSIUM - SERUM 3.7 mmol/L (3.5-5.1); PROTEIN - SERUM 5.9 g/dL (6.4-8.2)
[2018-03-06] VITALS (24 sets, daily range): BP systolic 118–159; BP diastolic 45–69
[2018-03-06 04:29] LABS: BASOPHILS 0.1 % (0-2); EOSINOPHILS 0.1 % (0-7); IMMATURE GRANULOCYTES 0.3 % (0-5); LYMPHOCYTES 5.9 % (15-50); MCH 30.2 pg (26.0-34.0); MCHC 30.3 g/dL (31.0-37.0); MCV 99.5 fL (80.0-100.0); MEAN PLATELET VOLUME 12.5 fL (7.4-10.4); MONOCYTES 1.7 % (2-11); NEUTROPHILS 91.9 % (40-80); PLATELET COUNT 62 10x3/uL (130-400); RDW 17.6 % (11.5-14.5)
[2018-03-06 04:31] LABS: WBC 8.7 10x3/uL (4.8-10.8)
[2018-03-06 04:33] LABS: HEMATOCRIT 18.8 % (36.0-48.0); HEMOGLOBIN 5.7 g/dL (12-16); RBC 1.89 10x6/uL (4.00-5.40)
[2018-03-06 04:51] LABS: ALBUMIN 1.6 g/dL (3.4-5.0); BILIRUBIN - TOTAL 0.66 mg/dL (0.2-1.3); CALCIUM 7.8 mg/dL (8.5-10.1)
[2018-03-06 04:54] LABS: CREATININE - SERUM 2.4 mg/dL (0.6-1.3); MAGNESIUM - SERUM 2.9 mg/dL (1.8-2.4)
[2018-03-06 10:30] LABS: D-DIMER-QUANTITATIVE 2.5 ug/mLFEU (0.20-0.54)
[2018-03-06 10:31] LABS: PROTIME 59.3 SECONDS (11.6-15.0)
[2018-03-06 13:49] LABS: BASOPHILS 0.1 % (0-2); EOSINOPHILS 0.4 % (0-7); IMMATURE GRANULOCYTES 0.8 % (0-5); LYMPHOCYTES 3.3 % (15-50); MCH 30.1 pg (26.0-34.0); MCHC 31.7 g/dL (31.0-37.0); MEAN PLATELET VOLUME 12.7 fL (7.4-10.4); MONOCYTES 2.2 % (2-11); NEUTROPHILS 93.2 % (40-80); PLATELET COUNT 54 10x3/uL (130-400); RDW 17.6 % (11.5-14.5); WBC 10.8 10x3/uL (4.8-10.8)
[2018-03-06 13:56] LABS: HEMATOCRIT 26.8 % (36.0-48.0); HEMOGLOBIN 8.5 g/dL (12-16); RBC 2.82 10x6/uL (4.00-5.40)
[2018-03-06 19:15] LABS: BASOPHILS 0 % (0-2); EOSINOPHILS 0.1 % (0-7); HEMATOCRIT 25.5 % (36.0-48.0); HEMOGLOBIN 8.1 g/dL (12-16); IMMATURE GRANULOCYTES 0.8 % (0-5); LYMPHOCYTES 4.1 % (15-50); MCH 30.1 pg (26.0-34.0); MCHC 31.8 g/dL (31.0-37.0); MCV 94.8 fL (80.0-100.0); MEAN PLATELET VOLUME 12.9 fL (7.4-10.4); MONOCYTES 1.3 % (2-11); NEUTROPHILS 93.7 % (40-80); PLATELET COUNT 55 10x3/uL (130-400); RBC 2.69 10x6/uL (4.00-5.40); RDW 18.3 % (11.5-14.5); WBC 9.2 10x3/uL (4.8-10.8)
[2018-03-06 19:23] LABS: ANION GAP 16.5 mmol/L (8-16); CALCIUM 7.8 mg/dL (8.5-10.1); CARBON DIOXIDE 25.1 mmol/L (21.0-32.0); POTASSIUM - SERUM 4.6 mmol/L (3.5-5.1)
[2018-03-07] VITALS (26 sets, daily range): BP systolic 120–159; BP diastolic 53–70; Ht 152.4 cm; Wt 64.5 kg
[2018-03-07 04:07] LABS: BASOPHILS 0.1 % (0-2); EOSINOPHILS 0.3 % (0-7); HEMATOCRIT 25.6 % (36.0-48.0); HEMOGLOBIN 8.2 g/dL (12-16); LYMPHOCYTES 5.1 % (15-50); MCH 30.3 pg (26.0-34.0); MCV 94.5 fL (80.0-100.0); NEUTROPHILS 91.5 % (40-80); PLATELET COUNT 50 10x3/uL (130-400); RBC 2.71 10x6/uL (4.00-5.40); RDW 18.3 % (11.5-14.5); WBC 10.1 10x3/uL (4.8-10.8)
[2018-03-07 04:18] LABS: D-DIMER-QUANTITATIVE 2.38 ug/mLFEU (0.20-0.54)
[2018-03-07 04:31] LABS: INR 1.93 (0.85-1.17); PROTIME 21.5 SECONDS (11.6-15.0)
[2018-03-07 04:45] LABS: ALBUMIN 1.8 g/dL (3.4-5.0); ANION GAP 16.6 mmol/L (8-16); BILIRUBIN - TOTAL 0.91 mg/dL (0.2-1.3); CALCIUM 7.9 mg/dL (8.5-10.1); CREATININE - SERUM 3.2 mg/dL (0.6-1.3); MAGNESIUM - SERUM 2.9 mg/dL (1.8-2.4); POTASSIUM - SERUM 4.6 mmol/L (3.5-5.1); PROTEIN - SERUM 5.4 g/dL (6.4-8.2)
[2018-03-08] VITALS (22 sets, daily range): BP systolic 126–154; BP diastolic 50–66
[2018-03-08 01:46] LABS: CREATININE - URINE 42.9 mg/dL (30-125); PRO/CRE RATIO URINE 5.8 mg/g; PROTEIN - URINE 246.9 mg/dL (0.0-11.9)
[2018-03-08 01:47] LABS: APPEARANCE CLOUDY (CLEAR); BILIRUBIN NEGATIVE (NEGATIVE); COLOR YELLOW (YELLOW); GLUCOSE NEGATIVE (NEGATIVE); KETONE NEGATIVE (NEGATIVE); NITRITE NEGATIVE (NEGATIVE); PROTEIN 3+ mg/dL (NEGATIVE); SPECIFIC GRAVITY 1.015 (1.005-1.020); UROBILINOGEN NORMAL (NORMAL)
[2018-03-08 01:49] LABS: BACTERIA MODERATE /hpf (NONE SEEN); EPITHELIAL CELLS 0-5 /hpf (0-5); YEAST >1+ WITH HYPHAE /hpf (NONE SEEN)
[2018-03-08 05:02] LABS: BASOPHILS 0.1 % (0-2); HEMATOCRIT 25.2 % (36.0-48.0); HEMOGLOBIN 7.9 g/dL (12-16); LYMPHOCYTES 5.4 % (15-50); MCH 30.4 pg (26.0-34.0); MCHC 31.3 g/dL (31.0-37.0); MEAN PLATELET VOLUME 13.3 fL (7.4-10.4); MONOCYTES 1.7 % (2-11); NEUTROPHILS 89.8 % (40-80); PLATELET COUNT 54 10x3/uL (130-400); RDW 17.4 % (11.5-14.5); WBC 11.1 10x3/uL (4.8-10.8)
[2018-03-08 05:05] LABS: MCV 96.9 fL (80.0-100.0)
[2018-03-08 05:24] LABS: APTT 31.8 SECONDS (22.8-39.4); INR 1.42 (0.85-1.17); PROTIME 16.9 SECONDS (11.6-15.0)
[2018-03-08 05:37] LABS: ALBUMIN 1.8 g/dL (3.4-5.0); ANION GAP 15.3 mmol/L (8-16); CREATININE - SERUM 3.8 mg/dL (0.6-1.3); MAGNESIUM - SERUM 3.1 mg/dL (1.8-2.4); PHOSPHOROUS 6.6 mg/dL (2.5-4.9); PROTEIN - SERUM 5.5 g/dL (6.4-8.2)
[2018-03-08 05:59] LABS: POTASSIUM - SERUM 5.3 mmol/L (3.5-5.1)
[2018-03-08 15:18] LABS: ANION GAP 20.4 mmol/L (8-16); CREATININE - SERUM 4.3 mg/dL (0.6-1.3); POTASSIUM - SERUM 5.4 mmol/L (3.5-5.1)
[2018-03-09] VITALS (24 sets, daily range): BP systolic 110–170; BP diastolic 50–64
[2018-03-09 04:36] LABS: BASOPHILS 0.2 % (0-2); EOSINOPHILS 1.3 % (0-7); HEMATOCRIT 24.5 % (36.0-48.0); HEMOGLOBIN 7.8 g/dL (12-16); IMMATURE GRANULOCYTES 2.2 % (0-5); MCH 29.8 pg (26.0-34.0); MCHC 31.8 g/dL (31.0-37.0); MONOCYTES 1.8 % (2-11); NEUTROPHILS 89.5 % (40-80); RBC 2.62 10x6/uL (4.00-5.40); RDW 17.9 % (11.5-14.5); WBC 11.1 10x3/uL (4.8-10.8)
[2018-03-09 05:06] LABS: ALBUMIN 1.7 g/dL (3.4-5.0); ANION GAP 21.1 mmol/L (8-16); BILIRUBIN - TOTAL 0.78 mg/dL (0.2-1.3); CREATININE - SERUM 4.4 mg/dL (0.6-1.3); MAGNESIUM - SERUM 3.1 mg/dL (1.8-2.4); PHOSPHOROUS 7.9 mg/dL (2.5-4.9); POTASSIUM - SERUM 5.1 mmol/L (3.5-5.1); PROTEIN - SERUM 5.5 g/dL (6.4-8.2)
[2018-03-09 05:08] LABS: MCV 93.5 fL (80.0-100.0)
[2018-03-09 05:10] LABS: PLATELET COUNT 49 10x3/uL (130-400)
[2018-03-09 14:35] LABS: APTT 27.4 SECONDS (22.8-39.4)
[2018-03-09 14:36] LABS: D-DIMER-QUANTITATIVE 3.98 ug/mLFEU (0.20-0.54)
[2018-03-09 14:47] LABS: INR 1.44 (0.85-1.17)
[2018-03-10] VITALS (24 sets, daily range): BP systolic 103–159; BP diastolic 51–65
[2018-03-10 06:16] LABS: HEPATITIS C ANTIBODY 0.1 (0.0-0.9)
[2018-03-10 08:50] LABS: BASOPHILS 0.3 % (0-2); EOSINOPHILS 0.3 % (0-7); IMMATURE GRANULOCYTES 2.5 % (0-5); LYMPHOCYTES 3.1 % (15-50); MCH 30.3 pg (26.0-34.0); MCHC 33.7 g/dL (31.0-37.0); MONOCYTES 1.8 % (2-11); RDW 16.3 % (11.5-14.5); WBC 10.7 10x3/uL (4.8-10.8)
[2018-03-10 08:51] LABS: HEMATOCRIT 30.3 % (36.0-48.0); HEMOGLOBIN 10.2 g/dL (12-16); MCV 89.9 fL (80.0-100.0); RBC 3.37 10x6/uL (4.00-5.40)
[2018-03-10 08:53] LABS: PLATELET COUNT 25 10x3/uL (130-400)
[2018-03-10 09:01] LABS: ALBUMIN 1.6 g/dL (3.4-5.0); ANION GAP 16.4 mmol/L (8-16); BILIRUBIN - TOTAL 1.36 mg/dL (0.2-1.3); CALCIUM 7.7 mg/dL (8.5-10.1); PHOSPHOROUS 6.6 mg/dL (2.5-4.9); POTASSIUM - SERUM 4.5 mmol/L (3.5-5.1); PROTEIN - SERUM 5.7 g/dL (6.4-8.2)
[2018-03-10 09:04] LABS: CREATININE - SERUM 2.6 mg/dL (0.6-1.3); MAGNESIUM - SERUM 2.3 mg/dL (1.8-2.4)
[2018-03-10 09:05] LABS: CARBON DIOXIDE 25.1 mmol/L (21.0-32.0)
[2018-03-11] VITALS (24 sets, daily range): BP systolic 120–154; BP diastolic 56–69
[2018-03-11 03:49] LABS: BASOPHILS 0.1 % (0-2); EOSINOPHILS 0.5 % (0-7); HEMATOCRIT 29.3 % (36.0-48.0); HEMOGLOBIN 9.8 g/dL (12-16); IMMATURE GRANULOCYTES 1.9 % (0-5); LYMPHOCYTES 2.2 % (15-50); MCH 30.1 pg (26.0-34.0); MCHC 33.4 g/dL (31.0-37.0); MCV 89.9 fL (80.0-100.0); NEUTROPHILS 94.3 % (40-80); RBC 3.26 10x6/uL (4.00-5.40); RDW 15.4 % (11.5-14.5); WBC 12.5 10x3/uL (4.8-10.8)
[2018-03-11 03:58] LABS: PLATELET COUNT 43 10x3/uL (130-400)
[2018-03-11 04:07] LABS: ALBUMIN 1.5 g/dL (3.4-5.0); ANION GAP 8.8 mmol/L (8-16); BILIRUBIN - TOTAL 1.22 mg/dL (0.2-1.3); CARBON DIOXIDE 29.1 mmol/L (21.0-32.0); CREATININE - SERUM 2.4 mg/dL (0.6-1.3); MAGNESIUM - SERUM 2.2 mg/dL (1.8-2.4); PHOSPHOROUS 6.7 mg/dL (2.5-4.9); POTASSIUM - SERUM 3.9 mmol/L (3.5-5.1); PROTEIN - SERUM 5.6 g/dL (6.4-8.2)
[2018-03-12] VITALS (24 sets, daily range): BP systolic 113–154; BP diastolic 47–70
[2018-03-12 05:29] LABS: BASOPHILS 0.1 % (0-2); EOSINOPHILS 2.3 % (0-7); HEMATOCRIT 29.7 % (36.0-48.0); HEMOGLOBIN 9.8 g/dL (12-16); IMMATURE GRANULOCYTES 1.2 % (0-5); LYMPHOCYTES 3.9 % (15-50); MCH 29.6 pg (26.0-34.0); MCV 89.7 fL (80.0-100.0); MONOCYTES 1.4 % (2-11); NEUTROPHILS 91.1 % (40-80); RBC 3.31 10x6/uL (4.00-5.40); RDW 15.3 % (11.5-14.5); WBC 12.1 10x3/uL (4.8-10.8)
[2018-03-12 05:30] LABS: PLATELET COUNT 24 10x3/uL (130-400)
[2018-03-12 05:52] LABS: APTT 21.9 SECONDS (22.8-39.4); INR 1.13 (0.85-1.17)
[2018-03-12 05:53] LABS: D-DIMER-QUANTITATIVE 2.87 ug/mLFEU (0.20-0.54)
[2018-03-12 05:57] LABS: ANION GAP 13.3 mmol/L (8-16); CALCIUM 8.2 mg/dL (8.5-10.1); CARBON DIOXIDE 25.7 mmol/L (21.0-32.0); CREATININE - SERUM 2.1 mg/dL (0.6-1.3)
[2018-03-13] VITALS (24 sets, daily range): BP systolic 129–164; BP diastolic 47–76
[2018-03-13 03:49] LABS: BASOPHILS 0.1 % (0-2); EOSINOPHILS 0.2 % (0-7); HEMATOCRIT 25.7 % (36.0-48.0); HEMOGLOBIN 8.8 g/dL (12-16); LYMPHOCYTES 2.2 % (15-50); MCH 30.4 pg (26.0-34.0); MCHC 34.2 g/dL (31.0-37.0); MCV 88.9 fL (80.0-100.0); MONOCYTES 0.7 % (2-11); NEUTROPHILS 95.8 % (40-80); RBC 2.89 10x6/uL (4.00-5.40); RDW 15.1 % (11.5-14.5); WBC 9.4 10x3/uL (4.8-10.8)
[2018-03-13 03:52] LABS: PLATELET COUNT 45 10x3/uL (130-400)
[2018-03-13 04:29] LABS: CALCIUM 7.6 mg/dL (8.5-10.1); CARBON DIOXIDE 22.7 mmol/L (21.0-32.0); CREATININE - SERUM 3.1 mg/dL (0.6-1.3); PHOSPHOROUS 8.2 mg/dL (2.5-4.9); POTASSIUM - SERUM 3.7 mmol/L (3.5-5.1)
[2018-03-14] VITALS (24 sets, daily range): BP systolic 108–161; BP diastolic 45–89
[2018-03-14 03:47] LABS: BASOPHILS 0 % (0-2); EOSINOPHILS 0.8 % (0-7); HEMATOCRIT 23.8 % (36.0-48.0); HEMOGLOBIN 7.8 g/dL (12-16); IMMATURE GRANULOCYTES 0.5 % (0-5); LYMPHOCYTES 5.2 % (15-50); MCHC 32.8 g/dL (31.0-37.0); MCV 88.5 fL (80.0-100.0); MEAN PLATELET VOLUME 13.7 fL (7.4-10.4); MONOCYTES 1.8 % (2-11); NEUTROPHILS 91.7 % (40-80); RBC 2.69 10x6/uL (4.00-5.40); RDW 15.1 % (11.5-14.5)
[2018-03-14 03:48] LABS: PLATELET COUNT 37 10x3/uL (130-400); WBC 3.8 10x3/uL (4.8-10.8)
[2018-03-14 04:05] LABS: APTT 21.4 SECONDS (22.8-39.4); INR 1.28 (0.85-1.17); PROTIME 15.5 SECONDS (11.6-15.0)
[2018-03-14 04:06] LABS: D-DIMER-QUANTITATIVE 3.81 ug/mLFEU (0.20-0.54)
[2018-03-14 04:09] LABS: ANION GAP 21.5 mmol/L (8-16); CALCIUM 7.9 mg/dL (8.5-10.1); CARBON DIOXIDE 20.1 mmol/L (21.0-32.0); CREATININE - SERUM 3.7 mg/dL (0.6-1.3); PHOSPHOROUS 7.8 mg/dL (2.5-4.9); POTASSIUM - SERUM 3.6 mmol/L (3.5-5.1)
[2018-03-15] VITALS (26 sets, daily range): BP systolic 106–160; BP diastolic 44–86
[2018-03-15 04:36] LABS: BASOPHILS 0 % (0-2); EOSINOPHILS 1.4 % (0-7); IMMATURE GRANULOCYTES 0.7 % (0-5); MCH 29.6 pg (26.0-34.0); MCHC 33.6 g/dL (31.0-37.0); MCV 88.3 fL (80.0-100.0); MONOCYTES 0.2 % (2-11); NEUTROPHILS 93.7 % (40-80); RDW 15.7 % (11.5-14.5)
[2018-03-15 05:00] LABS: HEMATOCRIT 29.5 % (36.0-48.0); HEMOGLOBIN 9.9 g/dL (12-16); RBC 3.34 10x6/uL (4.00-5.40); WBC 5.8 10x3/uL (4.8-10.8)
[2018-03-15 05:01] LABS: PLATELET COUNT 16 10x3/uL (130-400)
[2018-03-15 05:04] LABS: ALBUMIN 1.4 g/dL (3.4-5.0); BILIRUBIN - TOTAL 1.2 mg/dL (0.2-1.3); CALCIUM 7.8 mg/dL (8.5-10.1); CARBON DIOXIDE 24.1 mmol/L (21.0-32.0); MAGNESIUM - SERUM 2.4 mg/dL (1.8-2.4); POTASSIUM - SERUM 3.1 mmol/L (3.5-5.1); PROTEIN - SERUM 5.7 g/dL (6.4-8.2)
[2018-03-15 05:11] LABS: CREATININE - SERUM 2.7 mg/dL (0.6-1.3); PHOSPHOROUS 4.5 mg/dL (2.5-4.9)
[2018-03-15 06:14] LABS: ANCA - ANTIMYELOPEROXIDASE <9.0 U/mL (0.0-9.0); ANCA - ANTIPROTEINASE 3 <3.5 U/mL (0.0-3.5); ANCA - ATYPICAL <1:20 titer (Neg:<1:20); ANCA - CYTOPLASMIC <1:20 titer (Neg:<1:20); ANCA - PERINUCLEAR <1:20 titer (Neg:<1:20)
[2018-03-15 20:08] LABS: ACID FAST SMEAR Negative (()); AFB SPECIMEN PROCESSING Concentration (())
[2018-03-16] VITALS (25 sets, daily range): BP systolic 121–166; BP diastolic 59–75
[2018-03-16 04:46] LABS: BASOPHILS 0.1 % (0-2); EOSINOPHILS 0.7 % (0-7); HEMATOCRIT 26.7 % (36.0-48.0); HEMOGLOBIN 8.8 g/dL (12-16); IMMATURE GRANULOCYTES 0.3 % (0-5); LYMPHOCYTES 3.5 % (15-50); MCH 29.7 pg (26.0-34.0); MCV 90.2 fL (80.0-100.0); MONOCYTES 1.2 % (2-11); NEUTROPHILS 94.2 % (40-80); RBC 2.96 10x6/uL (4.00-5.40); RDW 15.9 % (11.5-14.5); WBC 6.9 10x3/uL (4.8-10.8)
[2018-03-16 05:15] LABS: CALCIUM 7.9 mg/dL (8.5-10.1); CARBON DIOXIDE 23.5 mmol/L (21.0-32.0); CREATININE - SERUM 3.2 mg/dL (0.6-1.3); PHOSPHOROUS 5.6 mg/dL (2.5-4.9); POTASSIUM - SERUM 4.5 mmol/L (3.5-5.1)
[2018-03-16 05:37] LABS: PLATELET COUNT 27 10x3/uL (130-400)
[2018-03-16 13:19] LABS: FUNGUS STAIN Final report (())
[2018-03-17] VITALS (26 sets, daily range): BP systolic 152–175; BP diastolic 57–75
[2018-03-17 08:03] LABS: BASOPHILS 0.1 % (0-2); EOSINOPHILS 0.7 % (0-7); HEMATOCRIT 28.8 % (36.0-48.0); HEMOGLOBIN 9.4 g/dL (12-16); IMMATURE GRANULOCYTES 1.2 % (0-5); LYMPHOCYTES 2.6 % (15-50); MCH 29.5 pg (26.0-34.0); MCHC 32.6 g/dL (31.0-37.0); MCV 90.3 fL (80.0-100.0); MONOCYTES 1.6 % (2-11); NEUTROPHILS 93.8 % (40-80); RBC 3.19 10x6/uL (4.00-5.40); RDW 15.6 % (11.5-14.5); WBC 7.3 10x3/uL (4.8-10.8)
[2018-03-17 08:12] LABS: PLATELET COUNT 17 10x3/uL (130-400)
[2018-03-17 19:28] LABS: APPEARANCE TURBID (CLEAR); BILIRUBIN NEGATIVE (NEGATIVE); COLOR DK YELLOW (YELLOW); GLUCOSE 50 mg/dL (NEGATIVE); KETONE NEGATIVE (NEGATIVE); NITRITE NEGATIVE (NEGATIVE); PROTEIN 1+ mg/dL (NEGATIVE); SPECIFIC GRAVITY 1.015 (1.005-1.020); UROBILINOGEN NORMAL (NORMAL)
[2018-03-17 19:29] LABS: BACTERIA MODERATE /hpf (NONE SEEN); WHITE CELLS - URINE 25-50 /hpf (0-5)
[2018-03-17 19:30] LABS: YEAST >1+ WITH HYPHAE /hpf (NONE SEEN)
[2018-03-18] VITALS (26 sets, daily range): BP systolic 103–185; BP diastolic 54–70
[2018-03-18 04:23] LABS: BASOPHILS 0.3 % (0-2); EOSINOPHILS 0.5 % (0-7); HEMATOCRIT 27.1 % (36.0-48.0); HEMOGLOBIN 8.9 g/dL (12-16); IMMATURE GRANULOCYTES 2.5 % (0-5); LYMPHOCYTES 3.4 % (15-50); MCH 29.6 pg (26.0-34.0); MCHC 32.8 g/dL (31.0-37.0); MONOCYTES 1.9 % (2-11); NEUTROPHILS 91.4 % (40-80); PLATELET COUNT 21 10x3/uL (130-400); RBC 3.01 10x6/uL (4.00-5.40); RDW 15.3 % (11.5-14.5); WBC 6.5 10x3/uL (4.8-10.8)
[2018-03-18 04:39] LABS: ALBUMIN 1.5 g/dL (3.4-5.0); ANION GAP 19.5 mmol/L (8-16); BILIRUBIN - TOTAL 0.94 mg/dL (0.2-1.3); CALCIUM 8.1 mg/dL (8.5-10.1); CARBON DIOXIDE 20.3 mmol/L (21.0-32.0); CREATININE - SERUM 3.8 mg/dL (0.6-1.3); PHOSPHOROUS 6.8 mg/dL (2.5-4.9); POTASSIUM - SERUM 4.8 mmol/L (3.5-5.1); PROTEIN - SERUM 5.9 g/dL (6.4-8.2); VANCOMYCIN - RANDOM 24.9 ug/mL (10.0-20.0)
[2018-03-19] VITALS (23 sets, daily range): BP systolic 106–157; BP diastolic 43–60
[2018-03-19 03:51] LABS: BASOPHILS 0.2 % (0-2); EOSINOPHILS 0.7 % (0-7); HEMATOCRIT 25.6 % (36.0-48.0); HEMOGLOBIN 8.4 g/dL (12-16); IMMATURE GRANULOCYTES 3.6 % (0-5); LYMPHOCYTES 4.5 % (15-50); MCH 29.4 pg (26.0-34.0); MCHC 32.8 g/dL (31.0-37.0); MCV 89.5 fL (80.0-100.0); MONOCYTES 2.1 % (2-11); NEUTROPHILS 88.9 % (40-80); RBC 2.86 10x6/uL (4.00-5.40); RDW 15.2 % (11.5-14.5); WBC 5.8 10x3/uL (4.8-10.8)
[2018-03-19 03:52] LABS: PLATELET COUNT 25 10x3/uL (130-400)
[2018-03-19 04:11] LABS: ALBUMIN 1.5 g/dL (3.4-5.0); BILIRUBIN - TOTAL 0.89 mg/dL (0.2-1.3); CALCIUM 7.7 mg/dL (8.5-10.1); MAGNESIUM - SERUM 2.5 mg/dL (1.8-2.4); PROTEIN - SERUM 5.8 g/dL (6.4-8.2); VANCOMYCIN - RANDOM 17.8 ug/mL (10.0-20.0)
[2018-03-19 04:13] LABS: ANION GAP 12.5 mmol/L (8-16); CARBON DIOXIDE 26.9 mmol/L (21.0-32.0); CREATININE - SERUM 2.5 mg/dL (0.6-1.3); PHOSPHOROUS 4.9 mg/dL (2.5-4.9); POTASSIUM - SERUM 3.4 mmol/L (3.5-5.1)
[2018-03-20] VITALS (24 sets, daily range): BP systolic 126–162; BP diastolic 43–57
[2018-03-20 04:03] LABS: BASOPHILS 0.2 % (0-2); EOSINOPHILS 5.8 % (0-7); HEMOGLOBIN 8.5 g/dL (12-16); LYMPHOCYTES 6.7 % (15-50); MCH 29.8 pg (26.0-34.0); MCHC 32.7 g/dL (31.0-37.0); MCV 91.2 fL (80.0-100.0); MONOCYTES 1.3 % (2-11); RBC 2.85 10x6/uL (4.00-5.40); RDW 15.4 % (11.5-14.5); WBC 6.1 10x3/uL (4.8-10.8)
[2018-03-20 04:09] LABS: PLATELET COUNT 26 10x3/uL (130-400)
[2018-03-20 04:24] LABS: ALBUMIN 1.5 g/dL (3.4-5.0); ANION GAP 7.5 mmol/L (8-16); BILIRUBIN - TOTAL 0.75 mg/dL (0.2-1.3); CALCIUM 7.5 mg/dL (8.5-10.1); CARBON DIOXIDE 30.7 mmol/L (21.0-32.0); MAGNESIUM - SERUM 2.2 mg/dL (1.8-2.4); POTASSIUM - SERUM 3.2 mmol/L (3.5-5.1); PROTEIN - SERUM 5.7 g/dL (6.4-8.2); VANCOMYCIN - RANDOM 13.7 ug/mL (10.0-20.0)
[2018-03-20 04:32] LABS: CREATININE - SERUM 1.7 mg/dL (0.6-1.3)
[2018-03-21] VITALS (25 sets, daily range): BP systolic 102–158; BP diastolic 36–83
[2018-03-21 04:20] LABS: BASOPHILS 0.1 % (0-2); EOSINOPHILS 2.7 % (0-7); HEMATOCRIT 23.7 % (36.0-48.0); HEMOGLOBIN 7.7 g/dL (12-16); IMMATURE GRANULOCYTES 1.6 % (0-5); LYMPHOCYTES 7.3 % (15-50); MCH 30.2 pg (26.0-34.0); MCHC 32.5 g/dL (31.0-37.0); MCV 92.9 fL (80.0-100.0); MONOCYTES 1.6 % (2-11); NEUTROPHILS 86.7 % (40-80); RBC 2.55 10x6/uL (4.00-5.40); RDW 15.7 % (11.5-14.5); WBC 6.9 10x3/uL (4.8-10.8)
[2018-03-21 04:26] LABS: PLATELET COUNT 21 10x3/uL (130-400)
[2018-03-21 04:37] LABS: ALBUMIN 1.4 g/dL (3.4-5.0); ANION GAP 11.4 mmol/L (8-16); BILIRUBIN - TOTAL 0.64 mg/dL (0.2-1.3); CALCIUM 7.6 mg/dL (8.5-10.1); CARBON DIOXIDE 25.7 mmol/L (21.0-32.0); POTASSIUM - SERUM 4.1 mmol/L (3.5-5.1); PROTEIN - SERUM 5.7 g/dL (6.4-8.2); VANCOMYCIN - RANDOM 25.5 ug/mL (10.0-20.0)
[2018-03-21 04:39] LABS: CREATININE - SERUM 2.4 mg/dL (0.6-1.3); PHOSPHOROUS 5.6 mg/dL (2.5-4.9)
[2018-03-21 13:13] LABS: FUNGUS CULTURE RESULT 1 Candida albicans (())
[2018-03-22] VITALS (22 sets, daily range): BP systolic 97–168; BP diastolic 44–65
[2018-03-22 05:14] LABS: BASOPHILS 0.1 % (0-2); EOSINOPHILS 3.7 % (0-7); HEMATOCRIT 26.4 % (36.0-48.0); HEMOGLOBIN 8.6 g/dL (12-16); LYMPHOCYTES 6.5 % (15-50); MCH 29.7 pg (26.0-34.0); MCHC 32.6 g/dL (31.0-37.0); MONOCYTES 1.7 % (2-11); RDW 16.3 % (11.5-14.5); WBC 8.1 10x3/uL (4.8-10.8)
[2018-03-22 05:17] LABS: APTT 23.1 SECONDS (22.8-39.4); INR 1.18 (0.85-1.17); PROTIME 14.6 SECONDS (11.6-15.0)
[2018-03-22 05:18] LABS: PLATELET COUNT 26 10x3/uL (130-400)
[2018-03-22 05:25] LABS: ANION GAP 15.1 mmol/L (8-16); CALCIUM 7.7 mg/dL (8.5-10.1); CARBON DIOXIDE 26.8 mmol/L (21.0-32.0); VANCOMYCIN - RANDOM 18.2 ug/mL (10.0-20.0)
[2018-03-22 05:28] LABS: PHOSPHOROUS 3.9 mg/dL (2.5-4.9); POTASSIUM - SERUM 2.9 mmol/L (3.5-5.1)
[2018-03-22 11:16] LABS: APTT 23.9 SECONDS (22.8-39.4); INR 1.16 (0.85-1.17); PROTIME 14.4 SECONDS (11.6-15.0)
[2018-03-23] VITALS (22 sets, daily range): BP systolic 141–172; BP diastolic 49–800
[2018-03-23 04:34] LABS: BASOPHILS 0.1 % (0-2); EOSINOPHILS 2.8 % (0-7); HEMATOCRIT 24.2 % (36.0-48.0); HEMOGLOBIN 7.8 g/dL (12-16); LYMPHOCYTES 10.6 % (15-50); MCH 29.7 pg (26.0-34.0); MCHC 32.2 g/dL (31.0-37.0); MEAN PLATELET VOLUME 12.3 fL (7.4-10.4); MONOCYTES 3.3 % (2-11); NEUTROPHILS 82.2 % (40-80); RBC 2.63 10x6/uL (4.00-5.40); RDW 16.1 % (11.5-14.5); WBC 7.2 10x3/uL (4.8-10.8)
[2018-03-23 04:44] LABS: PLATELET COUNT 39 10x3/uL (130-400)
[2018-03-23 04:58] LABS: ANION GAP 11.5 mmol/L (8-16); CALCIUM 7.8 mg/dL (8.5-10.1); CARBON DIOXIDE 28.1 mmol/L (21.0-32.0); CREATININE - SERUM 2.4 mg/dL (0.6-1.3); PHOSPHOROUS 4.2 mg/dL (2.5-4.9); POTASSIUM - SERUM 3.6 mmol/L (3.5-5.1); VANCOMYCIN - RANDOM 31.8 ug/mL (10.0-20.0)
[2018-03-24] VITALS (26 sets, daily range): BP systolic 129–173; BP diastolic 49–82
[2018-03-24 04:35] LABS: BASOPHILS 0.1 % (0-2); EOSINOPHILS 2.2 % (0-7); HEMATOCRIT 21.5 % (36.0-48.0); LYMPHOCYTES 8.3 % (15-50); MCH 29.9 pg (26.0-34.0); MCHC 32.1 g/dL (31.0-37.0); MCV 93.1 fL (80.0-100.0); MEAN PLATELET VOLUME 12.3 fL (7.4-10.4); MONOCYTES 3.3 % (2-11); NEUTROPHILS 85.1 % (40-80); RBC 2.31 10x6/uL (4.00-5.40); RDW 16.5 % (11.5-14.5); WBC 7.8 10x3/uL (4.8-10.8)
[2018-03-24 04:53] LABS: HEMOGLOBIN 6.9 g/dL (12-16); PLATELET COUNT 63 10x3/uL (130-400)
[2018-03-24 04:57] LABS: ANION GAP 12.2 mmol/L (8-16); CALCIUM 7.5 mg/dL (8.5-10.1); CREATININE - SERUM 2.4 mg/dL (0.6-1.3); VANCOMYCIN - RANDOM 24.8 ug/mL (10.0-20.0)
[2018-03-24 05:07] LABS: PHOSPHOROUS 6.8 mg/dL (2.5-4.9); POTASSIUM - SERUM 4.2 mmol/L (3.5-5.1)
[2018-03-24 10:26] LABS: HEMATOCRIT 25.1 % (36.0-48.0)
[2018-03-24 10:42] LABS: HEMOGLOBIN 8.3 g/dL (12-16)
[2018-03-25] VITALS (19 sets, daily range): BP systolic 105–166; BP diastolic 49–79
[2018-03-25 03:46] LABS: BASOPHILS 0.2 % (0-2); EOSINOPHILS 1.2 % (0-7); HEMATOCRIT 24.7 % (36.0-48.0); IMMATURE GRANULOCYTES 1.1 % (0-5); LYMPHOCYTES 6.7 % (15-50); MCH 30.1 pg (26.0-34.0); MCHC 32.4 g/dL (31.0-37.0); MCV 92.9 fL (80.0-100.0); MEAN PLATELET VOLUME 12.2 fL (7.4-10.4); MONOCYTES 3.2 % (2-11); NEUTROPHILS 87.6 % (40-80); RBC 2.66 10x6/uL (4.00-5.40); RDW 17.5 % (11.5-14.5); WBC 9.3 10x3/uL (4.8-10.8)
[2018-03-25 03:47] LABS: PLATELET COUNT 48 10x3/uL (130-400)
[2018-03-25 04:02] LABS: ANION GAP 14.3 mmol/L (8-16); CALCIUM 7.9 mg/dL (8.5-10.1); CARBON DIOXIDE 26.1 mmol/L (21.0-32.0); CREATININE - SERUM 2.6 mg/dL (0.6-1.3); POTASSIUM - SERUM 3.4 mmol/L (3.5-5.1); VANCOMYCIN - RANDOM 23.3 ug/mL (10.0-20.0)
[2018-03-26] VITALS (24 sets, daily range): BP systolic 107–151; BP diastolic 39–63
[2018-03-26 06:03] LABS: BASOPHILS 0.2 % (0-2); EOSINOPHILS 1.9 % (0-7); HEMATOCRIT 24.6 % (36.0-48.0); HEMOGLOBIN 7.8 g/dL (12-16); IMMATURE GRANULOCYTES 2.1 % (0-5); LYMPHOCYTES 10.2 % (15-50); MCHC 31.7 g/dL (31.0-37.0); MCV 94.6 fL (80.0-100.0); MEAN PLATELET VOLUME 13.5 fL (7.4-10.4); MONOCYTES 4.4 % (2-11); NEUTROPHILS 81.2 % (40-80); RDW 18.4 % (11.5-14.5); WBC 8.3 10x3/uL (4.8-10.8)
[2018-03-26 06:25] LABS: PLATELET COUNT 47 10x3/uL (130-400)
[2018-03-26 06:48] LABS: ANION GAP 12.9 mmol/L (8-16); CARBON DIOXIDE 28.3 mmol/L (21.0-32.0); POTASSIUM - SERUM 3.2 mmol/L (3.5-5.1)
[2018-03-26 06:49] LABS: PHOSPHOROUS 5.2 mg/dL (2.5-4.9)
[2018-03-26 15:33] LABS: APPEARANCE TURBID (CLEAR); BILIRUBIN NEGATIVE (NEGATIVE); COLOR DK YELLOW (YELLOW); GLUCOSE NEGATIVE (NEGATIVE); KETONE NEGATIVE (NEGATIVE); NITRITE NEGATIVE (NEGATIVE); PROTEIN 3+ mg/dL (NEGATIVE); UROBILINOGEN NORMAL (NORMAL)
[2018-03-26 15:37] LABS: WHITE CELLS - URINE >50 /hpf (0-5)
[2018-03-26 15:38] LABS: BACTERIA MODERATE /hpf (NONE SEEN); YEAST >1+ WITH HYPHAE /hpf (NONE SEEN)
[2018-03-27] VITALS (13 sets, daily range): BP systolic 117–166; BP diastolic 55–66
[2018-03-27 05:40] LABS: BASOPHILS 0.2 % (0-2); EOSINOPHILS 0.9 % (0-7); HEMATOCRIT 24.1 % (36.0-48.0); IMMATURE GRANULOCYTES 1.6 % (0-5); LYMPHOCYTES 12.1 % (15-50); MCH 30.1 pg (26.0-34.0); MCHC 31.1 g/dL (31.0-37.0); MEAN PLATELET VOLUME 11.7 fL (7.4-10.4); MONOCYTES 6.4 % (2-11); NEUTROPHILS 78.8 % (40-80); PLATELET COUNT 50 10x3/uL (130-400); RBC 2.49 10x6/uL (4.00-5.40); RDW 18.8 % (11.5-14.5); WBC 8.6 10x3/uL (4.8-10.8)
[2018-03-27 05:43] LABS: HEMOGLOBIN 7.5 g/dL (12-16); MCV 96.8 fL (80.0-100.0)
[2018-03-27 06:24] LABS: ANION GAP 15.7 mmol/L (8-16); CALCIUM 8.8 mg/dL (8.5-10.1); CARBON DIOXIDE 27.2 mmol/L (21.0-32.0); CREATININE - SERUM 2.9 mg/dL (0.6-1.3); PHOSPHOROUS 4.7 mg/dL (2.5-4.9); POTASSIUM - SERUM 3.9 mmol/L (3.5-5.1)
[2018-03-28] VITALS (24 sets, daily range): BP systolic 116–176; BP diastolic 60–82
[2018-03-28 04:23] LABS: BASOPHILS 0.4 % (0-2); EOSINOPHILS 0.3 % (0-7); HEMATOCRIT 25.5 % (36.0-48.0); IMMATURE GRANULOCYTES 1.7 % (0-5); MCH 30.4 pg (26.0-34.0); MCHC 31.4 g/dL (31.0-37.0); MEAN PLATELET VOLUME 13.1 fL (7.4-10.4); MONOCYTES 5.3 % (2-11); NEUTROPHILS 79.3 % (40-80); PLATELET COUNT 57 10x3/uL (130-400); RBC 2.63 10x6/uL (4.00-5.40); RDW 19.2 % (11.5-14.5); WBC 7.7 10x3/uL (4.8-10.8)
[2018-03-28 05:19] LABS: % SATURATION 37 % (15-55); IRON 54 ug/dl (35-150); TOTAL IRON BIND CAPACITY 143 ug/dl (260-445); UNSAT IRON BIND CAPACITY 89 ug/dl (150-375)
[2018-03-28 05:29] LABS: ALBUMIN 1.8 g/dL (3.4-5.0); ANION GAP 13.1 mmol/L (8-16); BILIRUBIN - TOTAL 0.65 mg/dL (0.2-1.3); CALCIUM 8.7 mg/dL (8.5-10.1); CARBON DIOXIDE 28.5 mmol/L (21.0-32.0); CREATININE - SERUM 3.2 mg/dL (0.6-1.3); PHOSPHOROUS 4.6 mg/dL (2.5-4.9); POTASSIUM - SERUM 4.6 mmol/L (3.5-5.1); PROTEIN - SERUM 6.6 g/dL (6.4-8.2)
[2018-03-29] VITALS (24 sets, daily range): BP systolic 117–171; BP diastolic 52–79
[2018-03-29 04:56] LABS: BASOPHILS 1.2 % (0-2); EOSINOPHILS 1.1 % (0-7); IMMATURE GRANULOCYTES 11.3 % (0-5); LYMPHOCYTES 13.9 % (15-50); MCH 30.3 pg (26.0-34.0); MCHC 33.1 g/dL (31.0-37.0); MONOCYTES 6.8 % (2-11); NEUTROPHILS 65.7 % (40-80); PLATELET COUNT 50 10x3/uL (130-400); RDW 19.6 % (11.5-14.5)
[2018-03-29 04:57] LABS: HEMATOCRIT 32.6 % (36.0-48.0); HEMOGLOBIN 10.8 g/dL (12-16); MCV 91.3 fL (80.0-100.0); RBC 3.57 10x6/uL (4.00-5.40)
[2018-03-29 05:11] LABS: ALBUMIN 2.1 g/dL (3.4-5.0); BILIRUBIN - TOTAL 0.9 mg/dL (0.2-1.3); CALCIUM 8.4 mg/dL (8.5-10.1); CARBON DIOXIDE 30.4 mmol/L (21.0-32.0); PROTEIN - SERUM 7.5 g/dL (6.4-8.2)
[2018-03-29 05:18] LABS: ANION GAP 11.6 mmol/L (8-16); CREATININE - SERUM 2.2 mg/dL (0.6-1.3)
[2018-03-30] VITALS (24 sets, daily range): BP systolic 108–179; BP diastolic 6–87
[2018-03-30 03:58] LABS: BASOPHILS 1.1 % (0-2); EOSINOPHILS 0.5 % (0-7); HEMOGLOBIN 10.5 g/dL (12-16); IMMATURE GRANULOCYTES 11.4 % (0-5); LYMPHOCYTES 14.7 % (15-50); MCH 30.2 pg (26.0-34.0); MCHC 32.8 g/dL (31.0-37.0); MONOCYTES 5.5 % (2-11); NEUTROPHILS 66.8 % (40-80); PLATELET COUNT 50 10x3/uL (130-400); RBC 3.48 10x6/uL (4.00-5.40); RDW 18.7 % (11.5-14.5); WBC 10.3 10x3/uL (4.8-10.8)
[2018-03-30 04:14] LABS: ANION GAP 10.1 mmol/L (8-16); BILIRUBIN - TOTAL 0.56 mg/dL (0.2-1.3); CALCIUM 8.8 mg/dL (8.5-10.1); CARBON DIOXIDE 31.5 mmol/L (21.0-32.0); CREATININE - SERUM 2.7 mg/dL (0.6-1.3); PHOSPHOROUS 3.6 mg/dL (2.5-4.9); POTASSIUM - SERUM 3.6 mmol/L (3.5-5.1); PROTEIN - SERUM 7.1 g/dL (6.4-8.2)
[2018-03-30 08:18] LABS: FOLATE (FOLIC ACID) - SERUM 8.8 ng/mL (>3.0)
[2018-03-31] VITALS (24 sets, daily range): BP systolic 125–168; BP diastolic 60–85
[2018-03-31 04:00] LABS: BASOPHILS 2.5 % (0-2); EOSINOPHILS 0.5 % (0-7); HEMATOCRIT 38.1 % (36.0-48.0); HEMOGLOBIN 12.6 g/dL (12-16); IMMATURE GRANULOCYTES 14.3 % (0-5); LYMPHOCYTES 14.4 % (15-50); MCH 30.5 pg (26.0-34.0); MCHC 33.1 g/dL (31.0-37.0); MCV 92.3 fL (80.0-100.0); MONOCYTES 5.1 % (2-11); NEUTROPHILS 63.2 % (40-80); PLATELET COUNT 51 10x3/uL (130-400); RBC 4.13 10x6/uL (4.00-5.40); RDW 18.5 % (11.5-14.5)
[2018-03-31 04:02] LABS: WBC 15.4 10x3/uL (4.8-10.8)
[2018-03-31 04:17] LABS: ALBUMIN 2.5 g/dL (3.4-5.0); ANION GAP 15.7 mmol/L (8-16); BILIRUBIN - TOTAL 0.75 mg/dL (0.2-1.3); CALCIUM 9.4 mg/dL (8.5-10.1); CARBON DIOXIDE 27.9 mmol/L (21.0-32.0); CREATININE - SERUM 2.2 mg/dL (0.6-1.3); POTASSIUM - SERUM 3.6 mmol/L (3.5-5.1); PROTEIN - SERUM 8.6 g/dL (6.4-8.2)
[2018-04-01] VITALS (25 sets, daily range): BP systolic 83–170; BP diastolic 42–94
[2018-04-01 04:45] LABS: HEMATOCRIT 36.2 % (36.0-48.0); HEMOGLOBIN 12.2 g/dL (12-16); LYMPHOCYTES 12.4 % (15-50); MCH 30.6 pg (26.0-34.0); MCHC 33.7 g/dL (31.0-37.0); MCV 90.7 fL (80.0-100.0); NEUTROPHILS 81.3 % (40-80); PLATELET COUNT 54 10x3/uL (130-400); RBC 3.99 10x6/uL (4.00-5.40); RDW 18.3 % (11.5-14.5); WBC 15.2 10x3/uL (4.8-10.8)
[2018-04-01 05:01] LABS: ALBUMIN 2.3 g/dL (3.4-5.0); ANION GAP 14.4 mmol/L (8-16); BILIRUBIN - TOTAL 0.62 mg/dL (0.2-1.3); CALCIUM 9.9 mg/dL (8.5-10.1); CARBON DIOXIDE 28.7 mmol/L (21.0-32.0); POTASSIUM - SERUM 4.1 mmol/L (3.5-5.1)
[2018-04-01 05:02] LABS: CREATININE - SERUM 3.4 mg/dL (0.6-1.3)
[2018-04-01 13:48] LABS: BASOPHILS 1.8 % (0-2); EOSINOPHILS 0.1 % (0-7); MONOCYTES 3.2 % (2-11)
[2018-04-01 22:36] LABS: ANION GAP 20.3 mmol/L (8-16); CALCIUM 8.8 mg/dL (8.5-10.1); CARBON DIOXIDE 22.3 mmol/L (21.0-32.0); CREATININE - SERUM 3.3 mg/dL (0.6-1.3); POTASSIUM - SERUM 4.6 mmol/L (3.5-5.1)
[2018-04-02] VITALS (24 sets, daily range): BP systolic 120–160; BP diastolic 53–76
[2018-04-02 04:22] LABS: HEMATOCRIT 37.4 % (36.0-48.0); HEMOGLOBIN 12.4 g/dL (12-16); MCH 30.8 pg (26.0-34.0); MCHC 33.2 g/dL (31.0-37.0); MCV 92.8 fL (80.0-100.0); PLATELET COUNT 73 10x3/uL (130-400); RBC 4.03 10x6/uL (4.00-5.40); RDW 18.3 % (11.5-14.5); WBC 20.8 10x3/uL (4.8-10.8)
[2018-04-02 04:23] LABS: BASOPHILS 0.9 % (0-2); EOSINOPHILS 0.1 % (0-7); IMMATURE GRANULOCYTES 9.1 % (0-5); LYMPHOCYTES 12.6 % (15-50); MONOCYTES 5.3 % (2-11)
[2018-04-02 04:41] LABS: ALBUMIN 2.4 g/dL (3.4-5.0); BILIRUBIN - TOTAL 0.57 mg/dL (0.2-1.3); CALCIUM 8.8 mg/dL (8.5-10.1); CARBON DIOXIDE 24.6 mmol/L (21.0-32.0); CREATININE - SERUM 3.1 mg/dL (0.6-1.3); PROTEIN - SERUM 8.3 g/dL (6.4-8.2)
[2018-04-02 04:43] LABS: ANION GAP 17.2 mmol/L (8-16); POTASSIUM - SERUM 3.8 mmol/L (3.5-5.1)
[2018-04-03] VITALS (24 sets, daily range): BP systolic 106–160; BP diastolic 47–69
[2018-04-03 05:41] LABS: BASOPHILS 0.4 % (0-2); EOSINOPHILS 0.2 % (0-7); HEMATOCRIT 34.3 % (36.0-48.0); HEMOGLOBIN 11.1 g/dL (12-16); IMMATURE GRANULOCYTES 5.3 % (0-5); LYMPHOCYTES 9.5 % (15-50); MCH 30.5 pg (26.0-34.0); MCHC 32.4 g/dL (31.0-37.0); MCV 94.2 fL (80.0-100.0); MEAN PLATELET VOLUME 13.9 fL (7.4-10.4); NEUTROPHILS 79.6 % (40-80); RBC 3.64 10x6/uL (4.00-5.40); WBC 19.7 10x3/uL (4.8-10.8)
[2018-04-03 05:42] LABS: PLATELET COUNT 104 10x3/uL (130-400)
[2018-04-03 05:58] LABS: ALBUMIN 2.2 g/dL (3.4-5.0); ANION GAP 20.6 mmol/L (8-16); BILIRUBIN - TOTAL 0.48 mg/dL (0.2-1.3); CALCIUM 9.1 mg/dL (8.5-10.1); CARBON DIOXIDE 23.7 mmol/L (21.0-32.0); PHOSPHOROUS 5.2 mg/dL (2.5-4.9); POTASSIUM - SERUM 4.3 mmol/L (3.5-5.1); PROTEIN - SERUM 7.3 g/dL (6.4-8.2)
[2018-04-03 06:05] LABS: CREATININE - SERUM 3.9 mg/dL (0.6-1.3)
[2018-04-04] VITALS (22 sets, daily range): BP systolic 105–154; BP diastolic 57–66
[2018-04-04 04:21] LABS: BASOPHILS 0.2 % (0-2); EOSINOPHILS 0.2 % (0-7); HEMATOCRIT 33.3 % (36.0-48.0); HEMOGLOBIN 10.7 g/dL (12-16); IMMATURE GRANULOCYTES 4.7 % (0-5); LYMPHOCYTES 6.9 % (15-50); MCH 30.5 pg (26.0-34.0); MCHC 32.1 g/dL (31.0-37.0); MCV 94.9 fL (80.0-100.0); MONOCYTES 5.9 % (2-11); NEUTROPHILS 82.1 % (40-80); PLATELET COUNT 85 10x3/uL (130-400); RBC 3.51 10x6/uL (4.00-5.40); RDW 18.7 % (11.5-14.5); WBC 18.8 10x3/uL (4.8-10.8)
[2018-04-04 04:36] LABS: ALBUMIN 2.2 g/dL (3.4-5.0); ANION GAP 18.4 mmol/L (8-16); BILIRUBIN - TOTAL 0.41 mg/dL (0.2-1.3); CALCIUM 9.1 mg/dL (8.5-10.1); CARBON DIOXIDE 24.6 mmol/L (21.0-32.0); CREATININE - SERUM 4.2 mg/dL (0.6-1.3); PROTEIN - SERUM 7.1 g/dL (6.4-8.2); VANCOMYCIN - RANDOM 19.9 ug/mL (10.0-20.0)
[2018-04-05] VITALS (25 sets, daily range): BP systolic 105–149; BP diastolic 43–72
[2018-04-05 03:51] LABS: BASOPHILS 0.4 % (0-2); EOSINOPHILS 0.3 % (0-7); HEMATOCRIT 36.4 % (36.0-48.0); HEMOGLOBIN 12.1 g/dL (12-16); LYMPHOCYTES 6.7 % (15-50); MCH 31.5 pg (26.0-34.0); MCHC 33.2 g/dL (31.0-37.0); MCV 94.8 fL (80.0-100.0); MONOCYTES 4.8 % (2-11); NEUTROPHILS 82.8 % (40-80); PLATELET COUNT 87 10x3/uL (130-400); RBC 3.84 10x6/uL (4.00-5.40); WBC 22.3 10x3/uL (4.8-10.8)
[2018-04-05 04:07] LABS: ALBUMIN 2.4 g/dL (3.4-5.0); ANION GAP 20.7 mmol/L (8-16); BILIRUBIN - TOTAL 0.46 mg/dL (0.2-1.3); CALCIUM 8.9 mg/dL (8.5-10.1); CARBON DIOXIDE 23.2 mmol/L (21.0-32.0); PHOSPHOROUS 6.4 mg/dL (2.5-4.9); POTASSIUM - SERUM 3.9 mmol/L (3.5-5.1); PROTEIN - SERUM 7.9 g/dL (6.4-8.2)
[2018-04-05 04:21] LABS: CREATININE - SERUM 2.9 mg/dL (0.6-1.3)
[2018-04-06] VITALS (24 sets, daily range): BP systolic 99–157; BP diastolic 32–65
[2018-04-06 05:46] LABS: BASOPHILS 0.5 % (0-2); EOSINOPHILS 0.5 % (0-7); HEMATOCRIT 34.2 % (36.0-48.0); HEMOGLOBIN 11.4 g/dL (12-16); IMMATURE GRANULOCYTES 5.3 % (0-5); LYMPHOCYTES 8.6 % (15-50); MCH 31.3 pg (26.0-34.0); MCHC 33.3 g/dL (31.0-37.0); MEAN PLATELET VOLUME 13.5 fL (7.4-10.4); MONOCYTES 3.9 % (2-11); NEUTROPHILS 81.2 % (40-80); PLATELET COUNT 73 10x3/uL (130-400); RBC 3.64 10x6/uL (4.00-5.40); WBC 19.7 10x3/uL (4.8-10.8)
[2018-04-06 05:59] LABS: ALBUMIN 2.3 g/dL (3.4-5.0); BILIRUBIN - TOTAL 0.39 mg/dL (0.2-1.3); CALCIUM 8.9 mg/dL (8.5-10.1); CARBON DIOXIDE 23.1 mmol/L (21.0-32.0); CREATININE - SERUM 3.4 mg/dL (0.6-1.3); PROTEIN - SERUM 7.2 g/dL (6.4-8.2)
[2018-04-06 06:24] LABS: ANION GAP 19.4 mmol/L (8-16); POTASSIUM - SERUM 4.5 mmol/L (3.5-5.1)
[2018-04-06 21:07] LABS: HEPATITIS C ANTIBODY <0.1 (0.0-0.9)
[2018-04-07] VITALS (24 sets, daily range): BP systolic 89–147; BP diastolic 41–67
[2018-04-07 06:14] LABS: BASOPHILS 0.3 % (0-2); EOSINOPHILS 0 % (0-7); HEMATOCRIT 36.9 % (36.0-48.0); HEMOGLOBIN 12.3 g/dL (12-16); IMMATURE GRANULOCYTES 6.6 % (0-5); LYMPHOCYTES 8.5 % (15-50); MCH 31.6 pg (26.0-34.0); MCHC 33.3 g/dL (31.0-37.0); MCV 94.9 fL (80.0-100.0); MONOCYTES 4.6 % (2-11); RBC 3.89 10x6/uL (4.00-5.40); RDW 19.2 % (11.5-14.5)
[2018-04-07 06:27] LABS: ANION GAP 17.5 mmol/L (8-16); CALCIUM 8.8 mg/dL (8.5-10.1); CARBON DIOXIDE 27.1 mmol/L (21.0-32.0)
[2018-04-07 06:39] LABS: CREATININE - SERUM 1.9 mg/dL (0.6-1.3)
[2018-04-07 06:40] LABS: POTASSIUM - SERUM 3.6 mmol/L (3.5-5.1)
[2018-04-07 06:52] LABS: PLATELET COUNT 46 10x3/uL (130-400)
[2018-04-08] VITALS (33 sets, daily range): BP systolic 79–153; BP diastolic 33–118
[2018-04-08 04:23] LABS: BASOPHILS 0.5 % (0-2); EOSINOPHILS 0.5 % (0-7); HEMOGLOBIN 11.6 g/dL (12-16); IMMATURE GRANULOCYTES 5.3 % (0-5); LYMPHOCYTES 9.9 % (15-50); MCH 31.6 pg (26.0-34.0); MCHC 33.1 g/dL (31.0-37.0); MCV 95.4 fL (80.0-100.0); MONOCYTES 5.8 % (2-11); PLATELET COUNT 34 10x3/uL (130-400); RBC 3.67 10x6/uL (4.00-5.40); RDW 19.1 % (11.5-14.5); WBC 20.1 10x3/uL (4.8-10.8)
[2018-04-08 04:26] LABS: ANION GAP 17.4 mmol/L (8-16); CALCIUM 9.1 mg/dL (8.5-10.1); CARBON DIOXIDE 27.3 mmol/L (21.0-32.0); POTASSIUM - SERUM 3.7 mmol/L (3.5-5.1)
[2018-04-08 04:28] LABS: CREATININE - SERUM 2.9 mg/dL (0.6-1.3)
[2018-04-09] VITALS (34 sets, daily range): BP systolic 52–128; BP diastolic 23–98
[2018-04-09 05:50] LABS: HEMATOCRIT 34.9 % (36.0-48.0); HEMOGLOBIN 11.4 g/dL (12-16); MCH 31.1 pg (26.0-34.0); MCHC 32.7 g/dL (31.0-37.0); MCV 95.4 fL (80.0-100.0); RBC 3.66 10x6/uL (4.00-5.40); RDW 19.7 % (11.5-14.5); WBC 24.1 10x3/uL (4.8-10.8)
[2018-04-09 05:51] LABS: BASOPHILS 0.5 % (0-2); EOSINOPHILS 0 % (0-7); IMMATURE GRANULOCYTES 6.3 % (0-5); LYMPHOCYTES 10.5 % (15-50); MONOCYTES 3.8 % (2-11); NEUTROPHILS 78.9 % (40-80); PLATELET COUNT 47 10x3/uL (130-400)
[2018-04-09 06:18] LABS: ALBUMIN 2.7 g/dL (3.4-5.0); ANION GAP 20.6 mmol/L (8-16); BILIRUBIN - TOTAL 0.6 mg/dL (0.2-1.3); CALCIUM 8.7 mg/dL (8.5-10.1); CARBON DIOXIDE 22.9 mmol/L (21.0-32.0); PROTEIN - SERUM 7.7 g/dL (6.4-8.2)
[2018-04-09 06:29] LABS: POTASSIUM - SERUM 4.5 mmol/L (3.5-5.1)
[2018-04-11 07:10] LABS: FUNGUS MYCOLOGY CULTURE Final report (())
[2018-04-14 16:23] LABS: AEROBE ID Final report (())
== END 2018-04-09 17:58 | DRG 3 ==
LOC: D.ER 19:47 → D.MS 01-26 09:42 → D.EDHOLD 01-26 09:42 → OBSVTIME 01-26 09:43 → D.MS 01-26 13:37 → D.ICU 01-27 09:01 → D.MS 01-27 09:01 → D.ICU 02-14 09:49
PROVIDERS: Family Medicine; Internal Medicine; Internal Medicine Hematology & Oncology; Internal Medicine Nephrology; Internal Medicine Pulmonary Disease; Orthopaedic Surgery; Surgery
PROC: 0QSG04Z Reposition Right Tibia with Internal Fixation Device, Open Approach (ICD-10-PCS; 2018-01-28)
PROC: 0QSJ04Z Reposition Right Fibula with Internal Fixation Device, Open Approach (ICD-10-PCS; principal; 2018-01-28 11:20)
PROC: 5A09457 Assistance with Respiratory Ventilation, 24-96 Consecutive Hours, Continuous Positive Airway Pressure (ICD-10-PCS; 2018-02-23)
PROC: 5A1955Z Respiratory Ventilation, Greater than 96 Consecutive Hours (ICD-10-PCS; 2018-02-28)
PROC: 0BH17EZ Insertion of Endotracheal Airway into Trachea, Via Natural or Artificial Opening (ICD-10-PCS; 2018-02-28)
PROC: 05HM33Z Insertion of Infusion Device into Right Internal Jugular Vein, Percutaneous Approach (ICD-10-PCS; 2018-03-08)
PROC: 0BC68ZZ Extirpation of Matter from Right Lower Lobe Bronchus, Via Natural or Artificial Opening Endoscopic (ICD-10-PCS; 2018-03-13)
PROC: 0BC68ZZ Extirpation of Matter from Right Lower Lobe Bronchus, Via Natural or Artificial Opening Endoscopic (ICD-10-PCS; 2018-03-23)
PROC: 0DH63UZ Insertion of Feeding Device into Stomach, Percutaneous Approach (ICD-10-PCS; 2018-03-23)
PROC: 0B113F4 Bypass Trachea to Cutaneous with Tracheostomy Device, Percutaneous Approach (ICD-10-PCS; 2018-03-23 11:00)
DX: S82.841A Displaced bimalleolar fracture of right lower leg, initial encounter for closed fracture (principal); I63.9 Cerebral infarction, unspecified; J96.01 Acute respiratory failure with hypoxia; J96.02 Acute respiratory failure with hypercapnia; I50.33 Acute on chronic diastolic (congestive) heart failure; G93.41 Metabolic encephalopathy; J15.211 Pneumonia due to Methicillin susceptible Staphylococcus aureus; I13.0 Hypertensive heart and chronic kidney disease with heart failure and stage 1 through stage 4 chronic kidney disease, or unspecified chronic kidney disease; R18.8 Other ascites; N17.9 Acute kidney failure, unspecified; J81.1 Chronic pulmonary edema; E87.0 Hyperosmolality and hypernatremia; N39.0 Urinary tract infection, site not specified; J90 Pleural effusion, not elsewhere classified; R04.2 Hemoptysis; I47.2 Ventricular tachycardia; W18.30XA Fall on same level, unspecified, initial encounter; T39.1X5A Adverse effect of 4-Aminophenol derivatives, initial encounter; Y92.238 Other place in hospital as the place of occurrence of the external cause; E11.42 Type 2 diabetes mellitus with diabetic polyneuropathy; Z79.4 Long term (current) use of insulin; R19.7 Diarrhea, unspecified; L03.012 Cellulitis of left finger; E88.09 Other disorders of plasma-protein metabolism, not elsewhere classified; R55 Syncope and collapse; D75.82 Heparin induced thrombocytopenia (HIT); E78.5 Hyperlipidemia, unspecified; Z85.3 Personal history of malignant neoplasm of breast; Z85.72 Personal history of non-Hodgkin lymphomas; D63.8 Anemia in other chronic diseases classified elsewhere; N18.9 Chronic kidney disease, unspecified; E11.22 Type 2 diabetes mellitus with diabetic chronic kidney disease; Y95 Nosocomial condition; R22.31 Localized swelling, mass and lump, right upper limb; D63.1 Anemia in chronic kidney disease; J44.9 Chronic obstructive pulmonary disease, unspecified; E87.5 Hyperkalemia; E11.43 Type 2 diabetes mellitus with diabetic autonomic (poly)neuropathy; K31.84 Gastroparesis; E87.6 Hypokalemia; Z91.19 Patient's noncompliance with other medical treatment and regimen; K72.90 Hepatic failure, unspecified without coma; K21.9 Gastro-esophageal reflux disease without esophagitis